=== PATIENT | male | born 1950 | race Two or more races ===

== ENCOUNTER → 2020-06-06 14:12 | Outpatient (BNVA) | payer MEDICARE, SELFPAY | PROVIDERS: Visit Provider Internal Medicine | DX: B20 Human immunodeficiency virus [HIV] disease (principal); I10 Essential (primary) hypertension; R76.8 Other specified abnormal immunological findings in serum; C85.80 Other specified types of non-Hodgkin lymphoma, unspecified site | CPT/HCPCS: 99213 ==

== ENCOUNTER → 2020-07-16 13:28 | Outpatient (BNVA) | payer MEDICARE, SELFPAY | PROVIDERS: Visit Provider Internal Medicine | DX: Z76.89 Persons encountering health services in other specified circumstances (principal) ==

== ENCOUNTER → 2020-08-06 15:29 | Outpatient (BNVA) | payer MEDICARE, SELFPAY | PROVIDERS: Visit Provider Internal Medicine | DX: Z13.89 Encounter for screening for other disorder (principal) | CPT/HCPCS: Q3014 ==

== ENCOUNTER 2020-08-09 12:06 | Emergency (ER) | payer MEDICARE, SELFPAY ==
[2020-08-09 12:15] VITALS: BP 160/70; PULSE 95; RESP 16; TEMP 36.9; O2SAT 95; BMI 24.3
--- NOTE | 2020-08-09 12:15 | ED_ITS ---
HPI - Nausea/Vomiting/Diarrhea General Chief complaint: Nausea/Vomiting/Diarrhea Stated complaint: nausea, abd pain Time Seen by Provider: 08/09/20 12:15 Source: patient History of Present Illness HPI Narrative: Patient complains of nausea some episodes of vomiting and dry heaves over last several days and a feeling of weakness for over a week, patient is on chemo for lymphoma and he says after every chemotherapy treatment he feels weaker and more nauseous, he has completed 3 treatments and the lymphoma treatment for a mass under his tongue has been successful in reducing the size of the mass He is able to tolerate small amounts of fluids without vomiting but cannot eat solid foods due to the nausea, at this time there is no chest pain or shortness of breath no fever no chills, no cough, no urinary problems MD elicited complaint: nausea and vomiting Related Data Home Medications Medication Instructions Recorded Confirmed carvedilol 25 mg tablet 25 mg PO BID 06/06/20 06/08/20 sacubitril 97 mg-valsartan 103 mg 1 tab PO BID 06/06/20 06/08/20 tablet allopurinol 300 mg tablet 0 mg PO 08/06/20 omeprazole 20 mg capsule,delayed 20 mg PO DAILY 08/06/20 release oxycodone 5 mg tablet 5 mg PO Q6H 08/06/20 prednisone 50 mg tablet 100 mg PO BEDTIME 08/06/20 prochlorperazine maleate 10 mg 10 mg PO Q6H PRN 08/06/20 tablet Previous Rx's Medication Instructions Recorded dolutegravir 50 mg tablet 50 mg PO DAILY 30 Days #30 tab 06/06/20 emtricitabine 200 mg-tenofovir 1 tab PO DAILY 30 Days #30 tab 06/06/20 alafenamide fumarate 25 mg tablet ondansetron HCl [Zofran] 4 mg PO Q6H PRN #20 tab 08/09/20 ondansetron HCl [Zofran] 4 mg PO Q6H PRN #20 tab 08/09/20 ondansetron HCl [Zofran] 4 mg PO Q6H PRN #20 tab 08/09/20 Allergies Allergy/AdvReac Type Severity Reaction Status Date / Time morphine [MORPHINE] Allergy Intermediate RASH Verified 08/06/20 14:37 ibuprofen [From MOTRIN] AdvReac Unknown UPSET Verified 08/06/20 14:37 STOMACH, diarrhea Seasonale Allergy Unknown itching Uncoded 12/03/19 00:00 Review of Systems Review of Systems: Patient complaints are nausea vomiting and generalized weakness Negatives are no fever no chills no dizziness no fainting no headache no neck pain no sore throat no runny nose no cough no shortness of breath no chest pain no diarrhea no dysuria no changes to bladder habits, no abdominal pain, no rash, no bleeding in stool or any other source, no difficulty ambulating, no confusion Yes all other systems are reviewed and are negative [facility] Past Medical History Attestation statement: The following information was validated with the patient. 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, he also has history of HIV infection and is under care of infectious disease doctor for this and has seen Dr young recently Medical History (Updated 08/09/20 @ 15:42 by BRENDON Wang) Hepatitis B antibody positive in blood Hepatitis B core antibody positive Hepatitis C antibody positive in blood HIV (human immunodeficiency virus infection) Hypertension T-cell lymphoma Surgical History History of spinal surgery Social History Social History Smoking Status: Current every day smoker Use of substances other than those prescribed or required for medical reasons: No Advance Directives: No Advance Directives Information Provided: No Physical Exam Vital Signs: Vital Signs: Last Vital Signs Temp 98.0 F 08/09/20 14:00 Pulse 89 08/09/20 14:00 Resp 16 08/09/20 14:00 BP 155/78 H 08/09/20 14:00 Pulse Ox 95 08/09/20 14:00 Body Mass Index 24.3 General appearance is comp cooperative no acute distress The head is normocephalic atraumatic the pupils are equal round reactive to light the pharynx is clear and mucous membranes are moist , there is no impairment of breathing or swallowing, no mass palpated the neck is supple, no stridor The chest is clear to auscultation bilaterally with symmetrical equal breath sounds The heart no murmur as contagion Abdomen is soft and nontender no rebound no guarding The skin no rashes no petechiae no purpura Rectal exam was refused but patient denies any blood or any black tarry or purple stool Extremities no edema, no calf tenderness or swelling Neuro patient is interacting appropriately, gait is normal balance is normal No focal numbness or weakness, cranial nerves 2-12 intact as tested, cerebellar exam was normal Course Course Course Narrative: Nurse's note had said patient is complaining of diarrhea and s hortness of breath as well as nausea vomiting and feeling generally weak In my conversation with him he denied shortness of breath and said yet had some diarrhea many days ago but has no diarrhea now He was given 1 L of IV fluids and Zofran and after this he was able to eat Jell- O and apple juice with no nausea His labs showed some anemia with a hematocrit of 28 and a hemoglobin of 9 His case was discussed with the oncologist covering for Dr. prabhakar who said they can follow the patient closely and patient was discharged MDM - Nausea/Vomiting/Diarrhea Lab Data Attestation: I reviewed the patient's lab results. Result diagrams: 08/09/20 13:53 08/09/20 13:53 Labs: Lab Results 08/09/20 08/09/20 08/09/20 Range/Units 13:53 13:53 13:53 WBC 4.6 L (4.8-10.8) X10*3/uL RBC 2.86 L (4.60-5.80) X10*6/uL Hgb 9.0 L (14.0-18.0) g/dl Hct 28.2 L (42-52) % MCV 98.6 H (80-98) fL MCH 31.5 (27.0-33.0) pg MCHC 31.9 (31.0-36.0) g/dl RDW 16.4 H (11.0-16.0) % Plt Count 365 (160-400) X10*3/uL MPV 9.7 (9.4-12.4) fL Immature Gran % (Auto) 4.1 H (0.0-0.4) % Neut % (Auto) 60.8 (45-73) % Lymph % (Auto) 9.1 L (20-40) % [place] % (Auto) 25.8 H (2-11) % Eos % (Auto) 0.2 (0-4) % Baso % (Auto) 0.0 (0-2) % Lymph # (Auto) 0.4 L (1.2-4.9) X10*3/uL [place] # (Auto) 1.2 (0.1-1.2) X10*3/uL Eos # (Auto) 0.0 (0.0-0.4) X10*3/uL Baso # (Auto) 0.0 (0.0-0.2) X10*3/uL Abs Immat Gran (auto) 0.19 H (0.00-0.03) X10*3/uL Absolute Neuts (auto) 2.8 (2.0-8.3) X10*3/uL Absolute Nucleated RBC 0.000 (0.0-0.012) X10*3/uL Nucleated RBC % (auto) 0.0 (0.0-0.2) /100WBC Smear Tech's Comments VERIFIED Sodium 140 (135-145) mmol/L Potassium 4.3 (3.3-5.1) mmol/l Chloride 105 (96-108) mmol/L Carbon Dioxide 26 (22-29) mmol/L Anion Gap 13 (12-20) BUN 14 (9-16) mg/dL Creatinine 1.11 (0.5-1.4) mg/dL Estim Creat Clear Calc 63.6 Estimated GFR > 60 POC Glucose (60-115) mg/dL Random Glucose 112 (60-115) mg/dL Calcium 8.2 L (8.4-10.2) mg/dL Magnesium 1.7 (1.6-2.6) mg/dL Total Bilirubin 0.9 (0.0-1.0) mg/dL Direct Bilirubin 0.5 (0.0-0.5) mg/dL AST 32 (5-37) U/L ALT 24 (0-40) U/L Alkaline Phosphatase 57 (39-117) U/L Total Protein 6.3 L (6.5-8.0) g/dL Albumin 4.0 (3.5-5.0) g/dL Lipase 10 (8-78) U/L Urine Color Urine Appearance Urine pH (5.0-8.0) Ur Specific [place] (1.005-1.025) Urine Protein (NEG-TRACE) MG/DL Urine Glucose (UA) (NEG) MG/DL Urine Ketones (NEG) MG/DL Urine Blood (NEG) Urine Nitrite (NEG) Ur Leukocyte Esterase (NEG) 08/09/20 08/09/20 Range/Units 13:53 14:55 WBC (4.8-10.8) X10*3/uL RBC (4.60-5.80) X10*6/uL Hgb (14.0-18.0) g/dl Hct (42-52) % MCV (80-98) fL MCH (27.0-33.0) pg MCHC (31.0-36.0) g/dl RDW (11.0-16.0) % Plt Count (160-400) X10*3/uL MPV (9.4-12.4) fL Immature Gran % (Auto) (0.0-0.4) % Neut % (Auto) (45-73) % Lymph % (Auto) (20-40) % [place] % (Auto) (2-11) % Eos % (Auto) (0-4) % Baso % (Auto) (0-2) % Lymph # (Auto) (1.2-4.9) X10*3/uL [place] # (Auto) (0.1-1.2) X10*3/uL Eos # (Auto) (0.0-0.4) X10*3/uL Baso # (Auto) (0.0-0.2) X10*3/uL Abs Immat Gran (auto) (0.00-0.03) X10*3/uL Absolute Neuts (auto) (2.0-8.3) X10*3/uL Absolute Nucleated RBC (0.0-0.012) X10*3/uL Nucleated RBC % (auto) (0.0-0.2) /100WBC Smear Tech's Comments Sodium (135-145) mmol/L Potassium (3.3-5.1) mmol/l Chloride (96-108) mmol/L Carbon Dioxide (22-29) mmol/L Anion Gap (12-20) BUN (9-16) mg/dL Creatinine (0.5-1.4) mg/dL Estim Creat Clear Calc Estimated GFR POC Glucose 99 (60-115) mg/dL Random Glucose (60-115) mg/dL Calcium (8.4-10.2) mg/dL Magnesium (1.6-2.6) mg/dL Total Bilirubin (0.0-1.0) mg/dL Direct Bilirubin (0.0-0.5) mg/dL AST (5-37) U/L ALT (0-40) U/L Alkaline Phosphatase (39-117) U/L Total Protein (6.5-8.0) g/dL Albumin (3.5-5.0) g/dL Lipase (8-78) U/L Urine Color DARK YELLOW Urine Appearance HAZY Urine pH 6.0 (5.0-8.0) Ur Specific [place] 1.025 (1.005-1.025) Urine Protein TRACE (NEG-TRACE) MG/DL Urine Glucose (UA) NEG (NEG) MG/DL Urine Ketones 15 (NEG) MG/DL Urine Blood NEG (NEG) Urine Nitrite NEG (NEG) Ur Leukocyte Esterase NEG (NEG) Imaging Data Chest x-ray: Radiologist's impression: [place] [id number] XRay Report Signed Patient: Julian DicksonMR#: [id number] : 2Acct:[id number] Age/Sex: 70 / MADM Date: 08/09/20 Loc: .ED Attending Dr: Ordering Physician: ALICIA RILEY Date of Service: 08/09/20 Procedure(s): XR chest 1V Accession Number(s): [id number] cc: ALICIA RILEY~ EXAMINATION: XR CHEST CLINICAL INFORMATION: Weakness COMPARISON: 12/06/2018 TECHNIQUE: Frontal view of the chest was obtained. FINDINGS: Since the prior study, a right chest port has been placed with its tip in the distal SVC. There is continued mild elevation of the left hemidiaphragm. The heart size is normal. The aorta is unfolded. No infiltrates, effusions or lung masses are seen. Left basilar atelectasis is present. XR/XR chest 1V IMPRESSION: No acute intrathoracic disease. Discharge Plan Discharge Clinical Impression: T-cell lymphoma, Weakness, Nausea Anemia Qualifiers: Anemia type: unspecified type Qualified Code(s): D64.9 - Anemia, unspecified Patient Disposition: Home, Self-Care Additional Instructions: Our work today showed you have developed anemia possibly is a side effect of he r chemotherapy Hemoglobin was 9 and hematocrit was 28, this can explain fatigue and weakness and should be monitored as if numbers get worse you may need treatment Follow closely with her oncologist and primary doctor We gave Zofran here which helped her nausea so we are going to write you a presc ription for that medicine at home Return to ER any time for worsening weakness, dehydration, fever, any worse condition or any concerns Prescriptions: New ondansetron HCl [Zofran] 4 mg tablet 4 mg PO Q6H PRN (Reason: nausea and vomiting) Qty: 20 RF: 0 ondansetron HCl [Zofran] 4 mg tablet 4 mg PO Q6H PRN (Reason: nausea and vomiting) Qty: 20 RF: 0 ondansetron HCl [Zofran] 4 mg tablet 4 mg PO Q6H PRN (Reason: nausea and vomiting) Qty: 20 RF: 0 No Action Descovy 200-25 mg tablet 1 tab PO DAILY 30 Days Qty: 30 RF: 1 Tivicay 50 mg tablet 50 mg PO DAILY 30 Days Qty: 30 RF: 1 carvedilol [Coreg] 25 mg tablet 25 mg PO BID RF: 0 Entresto 97-103 mg tablet 1 tab PO BID RF: 0 prednisone 50 mg tablet 100 mg PO BEDTIME RF: 0 prochlorperazine maleate 10 mg tablet 10 mg PO Q6H PRN (Reason: nausea/vomiting) RF: 0 omeprazole 20 mg capsule,delayed release(DR/EC) 20 mg PO DAILY RF: 0 oxycodone 5 mg tablet 5 mg PO Q6H RF: 0 allopurinol 300 mg tablet 0 mg PO RF: 0
--- NOTE | 2020-08-09 12:38 | ECG_ITS ---
Test Reason : WEAK Blood Pressure : / mmHG Vent. Rate : 088 BPM Atrial Rate : 088 BPM P-R Int : 150 ms QRS Dur : 092 ms QT Int : 366 ms P-R-T Axes : 047 019 212 degrees QTc Int : 442 ms Artifact in tracing Normal sinus rhythm Minimal voltage criteria for LVH, may be normal variant T wave abnormality, consider anterolateral ischemia Abnormal ECG When compared with ECG of 06-DEC-2018 23:22, No significant changes seen Referred By: Mariusz Manzanares Electronically Signed By:KRISTIN GAONA
--- NOTE | 2020-08-09 13:15 | XR_ITS ---
EXAMINATION: XR CHEST CLINICAL INFORMATION: Weakness COMPARISON: 12/06/2018 TECHNIQUE: Frontal view of the chest was obtained. FINDINGS: Since the prior study, a right chest port has been placed with its tip in the distal SVC. There is continued mild elevation of the left hemidiaphragm. The heart size is normal. The aorta is unfolded. No infiltrates, effusions or lung masses are seen. Left basilar atelectasis is present. XR/XR chest 1V IMPRESSION: No acute intrathoracic disease.
[2020-08-09 13:22] VITALS: BP 142/69; PULSE 95
[2020-08-09 13:23] VITALS: BP 118/67; BP 146/78; PULSE 88; PULSE 92; RESP 16; O2SAT 98
[2020-08-09 14:00] VITALS: BP 155/78; PULSE 89; RESP 16; TEMP 36.7; O2SAT 95
[2020-08-09 14:04] LABS: Appearance Urine HAZY; Color Urine DARK YELLOW; Eosinophils Percent Auto 0.2 % (0-4); Glucose Urine UA NEG (NEG); Hematocrit 28.2 % (42-52); Imm Gran Abs Auto 0.19 X10*3/uL (0.00-0.03); Imm Gran Pct Auto 4.1 % (0.0-0.4); Leukocyte Esterase Urine NEG (NEG); Lymphocytes Absolute Auto 0.4 X10*3/uL (1.2-4.9); Lymphocytes Percent Auto 9.1 % (20-40); MANUAL DIFF FLAG SCAN; Mean Corpuscular HGB Conc 31.9 g/dl (31.0-36.0); Mean Corpuscular Hemoglobin 31.5 pg (27.0-33.0); Mean Corpuscular Volume 98.6 fL (80-98); Mean Platelet Volume 9.7 fL (9.4-12.4); Monocytes Absolute Auto 1.2 X10*3/uL (0.1-1.2); Monocytes Percent Auto 25.8 % (2-11); Neutrophils Absolute Auto 2.8 X10*3/uL (2.0-8.3); Neutrophils Percent Auto 60.8 % (45-73); Nitrite Urine NEG (NEG); Platelet Count 365 X10*3/uL (160-400); Red Blood Count 2.86 X10*6/uL (4.60-5.80); Red Cell Distribution Width 16.4 % (11.0-16.0); SCAN SMEAR FLAG 1; Specific Gravity - Urine 1.025 (1.005-1.025); Urine Blood NEG (NEG); Urine Ketones 15 MG/DL (NEG); Urine Protein TRACE MG/DL (NEG-TRACE); White Blood Count 4.6 X10*3/uL (4.8-10.8)
[2020-08-09] MEDS: 0.9 % Sodium Chloride 1,000 ML 1000 ML IV (14:16)
[2020-08-09] MEDS: ondansetron HCL 4 MG/2 ML VIAL IVPUSH (14:16)
[2020-08-09 14:24] LABS: SLIDE REVIEW VERIFIED
[2020-08-09 14:33] LABS: Alanine Aminotransferase 24 U/L (0-40); Alkaline Phosphatase 57 U/L (39-117); Anion Gap 13 (12-20); Aspartate Amino Transferase 32 U/L (5-37); Bilirubin Direct 0.5 mg/dL (0.0-0.5); Bilirubin Total 0.9 mg/dL (0.0-1.0); Blood Urea Nitrogen 14 mg/dL (9-16); Calcium 8.2 mg/dL (8.4-10.2); Carbon Dioxide 26 mmol/L (22-29); Chloride 105 mmol/L (96-108); Creatinine Clr Calc Pharmacy 63.6; Estimated Glomerular Filt Rate > 60; Glucose Random 112 mg/dL (60-115); Lipase 10 U/L (8-78); Magnesium 1.7 mg/dL (1.6-2.6); Potassium 4.3 mmol/l (3.3-5.1); Sodium 140 mmol/L (135-145); Total Protein 6.3 g/dL (6.5-8.0)
[2020-08-09 14:59] LABS: Glucose, Whole Blood 99 mg/dL (60-115)
[2020-08-09 15:56] VITALS: BP 169/79; PULSE 92; RESP 18; TEMP 36.7; O2SAT 97
[2020-08-09] MEDS: Heparin Sodium,Porcine Flush 50 UNITS, 0.9 % Sodium Chloride Flush 5 ML IVFLUSH (16:12)
== END 2020-08-09 16:17 | disposition home or self-care (01) ==
PROVIDERS: Physician Assistant Medical; Emergency Provider Emergency Medicine; PCP Nurse Practitioner Family
DX: D64.9 Anemia, unspecified (principal); C85.90 Non-Hodgkin lymphoma, unspecified, unspecified site; Z92.21 Personal history of antineoplastic chemotherapy; R53.1 Weakness; R11.0 Nausea; I10 Essential (primary) hypertension; Z21 Asymptomatic human immunodeficiency virus [HIV] infection status
CPT/HCPCS: 36415; 71045; 80048; 80076; 81003; 82947; 83690; 83735; 85025; 93005; 96361; 96374; 99284; J1642; J2405

== ENCOUNTER 2020-08-12 06:40 | Emergency (ER) | payer MEDICARE, SELFPAY ==
[2020-08-12 07:09] VITALS: BP 115/69; PULSE 88; RESP 19; TEMP 36.6; O2SAT 88; BMI 23.6
--- NOTE | 2020-08-12 07:27 | ED.NAVMDI ---
HPI - Nausea/Vomiting/Diarrhea General Chief complaint: Nausea/Vomiting/Diarrhea Stated complaint: WEAKNESS/VOMITING Time Seen by Provider: 08/12/20 07:27 Source: patient Mode of arrival: EMS Limitations: no limitations History of Present Illness HPI Narrative: Patient has throat cancer and patient last had chemotherapy 3 weeks ago. He is weak and can't eat. He has abdominal pain MD elicited complaint: nausea Pertinent past history: anorexia Onset (ago): month(s) Location of pain: periumbilical Severity: moderate Associated symptoms: weakness Related Data Home Medications Medication Instructions Recorded Confirmed carvedilol 25 mg tablet 25 mg PO BID 06/06/20 06/08/20 sacubitril 97 mg-valsartan 103 mg 1 tab PO BID 06/06/20 06/08/20 tablet allopurinol 300 mg tablet 0 mg PO 08/06/20 omeprazole 20 mg capsule,delayed 20 mg PO DAILY 08/06/20 release oxycodone 5 mg tablet 5 mg PO Q6H 08/06/20 prednisone 50 mg tablet 100 mg PO BEDTIME 08/06/20 prochlorperazine maleate 10 mg 10 mg PO Q6H PRN 08/06/20 tablet Previous Rx's Medication Instructions Recorded dolutegravir 50 mg tablet 50 mg PO DAILY 30 Days #30 tab 06/06/20 emtricitabine 200 mg-tenofovir 1 tab PO DAILY 30 Days #30 tab 06/06/20 alafenamide fumarate 25 mg tablet ondansetron HCl [Zofran] 4 mg PO Q6H PRN #20 tab 08/09/20 ondansetron HCl [Zofran] 4 mg PO Q6H PRN #20 tab 08/09/20 ondansetron HCl [Zofran] 4 mg PO Q6H PRN #20 tab 08/09/20 Allergies Allergy/AdvReac Type Severity Reaction Status Date / Time morphine [MORPHINE] Allergy Intermediate RASH Verified 08/06/20 14:37 ibuprofen [From MOTRIN] AdvReac Unknown UPSET Verified 08/06/20 14:37 STOMACH, diarrhea Seasonale Allergy Unknown itching Uncoded 12/03/19 00:00 Review of Systems Constitutional: Constitutional: Reports no additional constitutional complaints Eyes: Eyes: Reports no additional eye complaints ENT: Denies dizziness Cardiovascular: Cardiovascular: Reports no additional cardiovascular complaints Respiratory: Respiratory: Reports as per HPI Gastrointestinal: Gastrointestinal: Reports no additional gastrointestinal complaints Musculoskeletal: Musculoskeletal: Reports no additional musculoskeletal complaints Integumentary/Breasts: Skin/Breast: Denies rash Neurologic: Reports system reviewed and no additional complaints, except as documented, Denies dizziness and Denies Sensory deficit (Neuro) Psychiatric: Psychiatric: Denies anxiety [facility] Past Medical History Medical History (Updated 08/18/20 @ 16:33 by Gabby Thomas MD) Hepatitis B antibody positive in blood Hepatitis B core antibody positive Hepatitis C antibody positive in blood HIV (human immunodeficiency virus infection) Hypertension T-cell lymphoma Surgical History History of spinal surgery Social History Social History Smoking Status: Current every day smoker Physical Exam Vital Signs: Vital Signs: Last Vital Signs Temp 98 F 08/12/20 07:09 Pulse 88 08/12/20 10:42 Resp 18 08/12/20 10:42 BP 144/56 H 08/12/20 10:42 Pulse Ox 91 L 08/12/20 10:42 Body Mass Index 23.6 Const: Other: male chronically ill appearing Nutritional Appearance: average body habitus Orientation/consciousness: oriented to person and patient oriented x3 Limitations: no limitations HENMT: Head: Yes normal to inspection Ears: external ears normal General nose exam: Normal external nose present Mouth: Normal oral and palatal mucosa present and oropharynx normal Throat: Yes posterior oropharynx normal Eyes: General: appearance normal, both eyes and all related structures Neck: Other: supple Neck: Yes normal visual inspection Chest: Chest palpation & inspection: normal inspection of the chest Resp: Auscultation: clear to auscultation bilaterally Cardio: Jugular venous distension: no JVD Rate: regular rate Rhythm: regular rhythm Heart sounds: S1 normal heart sound present and S2 normal heart sound present GI: Inspection: Yes normal to inspection Palpation (GI): Soft to palpation, nontender and No hepatosplenomegaly present Auscultation: normal bowel sounds : General: Yes no CVA tenderness Back/Spine/Pelvis: Back: no CVA tenderness Skin: General skin exam: no rashes or lesions noted Neuro: General: oriented to person and patient oriented x3 Cranial nerves: Yes CN's II-XII intact bilaterally Motor exam (neuro): 5/5 motor strength present throughout Sensory Exam: No Sensory deficit (Neuro) Extrem: General: Yes normal to inspection Psych: Appearance: grossly normal Course Course Course Narrative: patient with soft abdomen, no vomiting, relaxed after ativan. will dc home and have patient follow up with his oncologist Reevaluation(s) Reevaluation #1: I have reviewed the chart MDM - Nausea/Vomiting/Diarrhea Lab Data Result diagrams: 08/12/20 08:26 08/12/20 08:26 Labs: Lab Results 08/12/20 08/12/20 08/12/20 Range/Units 07:56 08:26 08:26 WBC 8.3 (4.8-10.8) X10*3/uL RBC 2.78 L (4.60-5.80) X10*6/uL Hgb 8.8 L (14.0-18.0) g/dl Hct 27.2 L (42-52) % MCV 97.8 (80-98) fL MCH 31.7 (27.0-33.0) pg MCHC 32.4 (31.0-36.0) g/dl RDW 15.8 (11.0-16.0) % Plt Count 397 (160-400) X10*3/uL MPV 9.6 (9.4-12.4) fL Immature Gran % (Auto) 1.4 H (0.0-0.4) % Neut % (Auto) 79.4 H (45-73) % Lymph % (Auto) 3.4 L (20-40) % [place] % (Auto) 15.7 H (2-11) % Eos % (Auto) 0.0 (0-4) % Baso % (Auto) 0.1 (0-2) % Lymph # (Auto) 0.3 L (1.2-4.9) X10*3/uL [place] # (Auto) 1.3 H (0.1-1.2) X10*3/uL Eos # (Auto) 0.0 (0.0-0.4) X10*3/uL Baso # (Auto) 0.0 (0.0-0.2) X10*3/uL Abs Immat Gran (auto) 0.12 H (0.00-0.03) X10*3/uL Absolute Neuts (auto) 6.6 (2.0-8.3) X10*3/uL Absolute Nucleated RBC 0.000 (0.0-0.012) X10*3/uL Nucleated RBC % (auto) 0.0 (0.0-0.2) /100WBC Smear Tech's Comments VERIFIED Sodium 138 (135-145) mmol/L Potassium 4.5 (3.3-5.1) mmol/l Chloride 103 (96-108) mmol/L Carbon Dioxide 28 (22-29) mmol/L Anion Gap 12 (12-20) BUN 12 (9-16) mg/dL Creatinine 1.41 H (0.5-1.4) mg/dL Estim Creat Clear Calc 50.1 Estimated GFR 50 Random Glucose 120 H (60-115) mg/dL Calcium 7.8 L (8.4-10.2) mg/dL Urine Color YELLOW Urine Appearance HAZY Urine pH 6.0 (5.0-8.0) Ur Specific [place] 1.025 (1.005-1.025) Urine Protein 1+ H (NEG-TRACE) MG/DL Urine Glucose (UA) NEG (NEG) MG/DL Urine Ketones 5 (NEG) MG/DL Urine Blood NEG (NEG) Urine Nitrite NEG (NEG) Ur Leukocyte Esterase NEG (NEG) Urine RBC 0-2 (0) /HPF Urine WBC 0-2 (0-4) /HPF Ur Squamous Epith Cells 1+ /LPF Urine Bacteria NONE /LPF Urine Mucus 3+ /LPF Imaging Data Chest x-ray: Radiologist's impression: no infiltrate Discharge Plan Discharge Clinical Impression: Abdominal pain Patient Disposition: Home, Self-Care Instructions: Abdominal Pain (ED) Prescriptions: No Action ondansetron HCl [Zofran] 4 mg tablet 4 mg PO Q6H PRN (Reason: nausea and vomiting) Qty: 20 RF: 0 ondansetron HCl [Zofran] 4 mg tablet 4 mg PO Q6H PRN (Reason: nausea and vomiting) Qty: 20 RF: 0 ondansetron HCl [Zofran] 4 mg tablet 4 mg PO Q6H PRN (Reason: nausea and vomiting) Qty: 20 RF: 0 Descovy 200-25 mg tablet 1 tab PO DAILY 30 Days Qty: 30 RF: 1 Tivicay 50 mg tablet 50 mg PO DAILY 30 Days Qty: 30 RF: 1 carvedilol [Coreg] 25 mg tablet 25 mg PO BID RF: 0 Entresto 97-103 mg tablet 1 tab PO BID RF: 0 prednisone 50 mg tablet 100 mg PO BEDTIME RF: 0 prochlorperazine maleate 10 mg tablet 10 mg PO Q6H PRN (Reason: nausea/vomiting) RF: 0 omeprazole 20 mg capsule,delayed release(DR/EC) 20 mg PO DAILY RF: 0 oxycodone 5 mg tablet 5 mg PO Q6H RF: 0 allopurinol 300 mg tablet 0 mg PO RF: 0 Referrals: Physician,Unknown [Primary Care Provider] - 2 days Interventions: ED Discharge Assessment Last Done: 08/12/20 10:43 Discharge Date/Time: 08/12/20 11:09
--- NOTE | 2020-08-12 07:35 | XR_ITS ---
EXAMINATION: XR CHEST CLINICAL INFORMATION: Shortness of breath COMPARISON: Chest radiographs 08/09/2020, 12/06/2018, 08/04/2017 TECHNIQUE: Portable upright AP view of the chest was obtained. FINDINGS: There is bibasilar subsegmental atelectasis. The lungs otherwise clear. No lobar or segmental airspace consolidation. No pneumothorax or pleural reaction or overt effusion. The heart is normal in size. The vascularity is normal. There is a right tunneled port again seen with tip at distal SVC. The hilar and mediastinal contours and bony structures are unremarkable. XR/XR chest 1V IMPRESSION: Bibasilar subsegmental atelectasis.
[2020-08-12 08:12] LABS: Glucose Urine UA NEG (NEG); Leukocyte Esterase Urine NEG (NEG); Nitrite Urine NEG (NEG); Specific Gravity - Urine 1.025 (1.005-1.025); Urine Blood NEG (NEG); Urine Ketones 5 MG/DL (NEG); Urine Protein 1+ MG/DL (NEG-TRACE)
[2020-08-12 08:15] LABS: Appearance Urine HAZY; Color Urine YELLOW
[2020-08-12 08:25] LABS: Mucus Urine 3+ /LPF; RBC Urine 0-2 /HPF (0); Squamous Epithelial Cell Urine 1+ /LPF; WBC Urine 0-2 /HPF (0-4)
[2020-08-12 08:34] LABS: Basophils Percent Auto 0.1 % (0-2); Hematocrit 27.2 % (42-52); Hemoglobin 8.8 g/dl (14.0-18.0); Imm Gran Abs Auto 0.12 X10*3/uL (0.00-0.03); Imm Gran Pct Auto 1.4 % (0.0-0.4); Lymphocytes Absolute Auto 0.3 X10*3/uL (1.2-4.9); Lymphocytes Percent Auto 3.4 % (20-40); MANUAL DIFF FLAG SCAN; Mean Corpuscular HGB Conc 32.4 g/dl (31.0-36.0); Mean Corpuscular Hemoglobin 31.7 pg (27.0-33.0); Mean Corpuscular Volume 97.8 fL (80-98); Mean Platelet Volume 9.6 fL (9.4-12.4); Monocytes Absolute Auto 1.3 X10*3/uL (0.1-1.2); Monocytes Percent Auto 15.7 % (2-11); Neutrophils Absolute Auto 6.6 X10*3/uL (2.0-8.3); Neutrophils Percent Auto 79.4 % (45-73); Platelet Count 397 X10*3/uL (160-400); Red Blood Count 2.78 X10*6/uL (4.60-5.80); Red Cell Distribution Width 15.8 % (11.0-16.0); SCAN SMEAR FLAG 1; White Blood Count 8.3 X10*3/uL (4.8-10.8)
[2020-08-12] MEDS: 0.9 % Sodium Chloride 1,000 ML 999 ML IVCONT (08:34)
[2020-08-12] MEDS: Pantoprazole Sodium 40 MG/10 ML VIAL IVPUSH (08:37)
[2020-08-12] MEDS: LORazepam 2 MG/ML VIAL 1 MG IVPUSH (08:38)
[2020-08-12] MEDS: ondansetron HCL 4 MG/2 ML VIAL IVPUSH (08:38)
[2020-08-12 08:40] VITALS: BP 109/57; PULSE 86; O2SAT 94
[2020-08-12 08:58] LABS: SLIDE REVIEW VERIFIED
[2020-08-12 09:03] VITALS: BP 99/63; PULSE 89; O2SAT 94
[2020-08-12 09:09] LABS: Anion Gap 12 (12-20); Blood Urea Nitrogen 12 mg/dL (9-16); Calcium 7.8 mg/dL (8.4-10.2); Carbon Dioxide 28 mmol/L (22-29); Chloride 103 mmol/L (96-108); Creatinine Clr Calc Pharmacy 50.1; Estimated Glomerular Filt Rate 50; Glucose Random 120 mg/dL (60-115); Potassium 4.5 mmol/l (3.3-5.1); Sodium 138 mmol/L (135-145)
[2020-08-12 10:42] VITALS: BP 144/56; PULSE 88; RESP 18; O2SAT 91
== END 2020-08-12 11:09 | disposition home or self-care (01) ==
PROVIDERS: Emergency Provider Emergency Medicine
DX: R10.33 Periumbilical pain (principal); C14.0 Malignant neoplasm of pharynx, unspecified; Z79.899 Other long term (current) drug therapy; F17.200 Nicotine dependence, unspecified, uncomplicated; Z71.6 Tobacco abuse counseling
CPT/HCPCS: 36415; 71045; 80048; 81001; 85025; 96361; 96374; 96375; 99283; 99284; J2060; J2405

== ENCOUNTER → 2020-09-10 09:33 | Outpatient (BNVA) | payer MEDICARE, SELFPAY | PROVIDERS: Visit Provider Internal Medicine | DX: I42.8 Other cardiomyopathies (principal); C85.90 Non-Hodgkin lymphoma, unspecified, unspecified site; B20 Human immunodeficiency virus [HIV] disease; I95.2 Hypotension due to drugs | CPT/HCPCS: 99212 ==

== ENCOUNTER → 2020-10-09 09:42 | Outpatient (REF) | payer MEDICARE, SELFPAY ==
--- NOTE | 2020-10-09 09:45 | CA_ITS ---
Transthoracic Echocardiogram Patient (Last, First, Middle): Julian Dickson, Gender: Male Date of : 1950 Age: 70 Procedure Date: 10/09/2020 Procedure Type: Transthoracic Echocardiogram Location: OP Height: 175.26 cm Weight: 67.59 kg BSA: 1.82 m2 Heart Rate: bpm BP: 80 / 60 mmHg Cabinet Maker: AYLEEN Walker MD: Dillon Dean MD Tax Assessor: Babar Sandoval MD Symptoms: I42.8 - Other cardiomyopathies Study Quality: Fair ECG Rhythm: Sinus Conclusions: - 1. Moderate LV systolic dysfunction with grade 1 diastolic dysfunction 2. Normal cardiac valvular Doppler 3. Normal RV systolic pressure 4. No pericardial effusion Findings Left Ventricle Normal left ventricular cavity size. There is normal left ventricular wall thickness. The left ventricular systolic function is moderately decreased. The visually estimated ejection fraction is between 35-40%. Spectral Doppler is indicative of an impaired relaxation filling pattern. E/E prime ratio is <8, consistent with normal filling pressures. Evidence suggests grade I (mild) diastolic dysfunction. Right Ventricle Normal right ventricular cavity size and systolic function. Atria Both atria are normal in size. There is no evidence of interatrial shunt. Aortic Valve The aortic valve was not well visualized. There is no aortic valve stenosis. There is no aortic valve regurgitation. Mitral Valve Normal mitral valve structure and function. There is trace mitral valve regurgitation. There is no mitral valve stenosis. Pulmonic Valve The pulmonic valve was not well visualized. Tricuspid Valve Likely normal tricuspid valve structure and function. There is trace tricuspid valve regurgitation. The right ventricular systolic pressure is normal. The right ventricular systolic pressure is 17 mmHg. Normal right atrial pressure. There is no evidence of pulmonary hypertension. Great Vessels All visible segments of the aorta are normal in size. The pulmonary artery was not well visualized. Venous The inferior vena cava is normal in size and collapses greater than 50% with inspiration. Pericardium/Pleural There is no evidence of pericardial effusion. Prior Study Comparison Changes noted compared to prior study dated: 03/30/2019. LV systolic function is improved Measurements M-Mode Liner Measurements Normals - Women/Men AOV Cusps: 2.20 1.5-2.6 cm/m2 2D Linear Measurements IVSd: 0.91 0.6-0.9/0.6-1.0 cm LVIDd: 3.92 3.9-5.3/4.2-5.9 cm LVIDd Index: 2.15 2.4-3.2/2.2-3.1 cm/m2 LVIDs: 3.25 2.0-3.6 cm LVPWd: 0.94 0.7-1.1 cm LA Diam: 2.90 2.7-3.8/3.0-4.0 cm LAIDs Index: 1.59 1.5-2.3 cm/m2 LV Mass: 137.97 67-162/88-224 g LV Mass Index: 75.81 43-95/49-115 g/m2 2D Systolic Function EF 4C: 39.30 >55% EF 2C: 42.70 >55% EF BiP: 41.70 >55% Mitral Valve MV Pk E: 0.59 MV Decel Time: 180.00 PHT: 53.00 MVA PHT: 4.15 Decel Giles: 3.35 Aortic Valve AoV Pk Reagan: 0.96 AoV Pk Grad: 4.00 LVOT LVOT Pk Reagan: 0.66 LVOT Mn Reagan: 0.46 LVOT VTI: 0.12 LVOT Pk Grad: 2.00 LVOT Mn Grad: 1.00 Diastolic Function MV Pk E: 0.59 Tricuspid Valve TR Pk Reagan: 1.87 TR Pk Grad: 14.00 RA Press: 3.00 RVSP: 17.00 Pulmonary Valve PV Pk Reagan: 0.65 Peak PV Grad: 2.00 Updated in Other Vendor System with Status of Final Babar Sandoval MD electronically signed on 10/10/2020 2:49:24 PM with status of Final
== END ==
LOC: HO.CARD 09:42
PROVIDERS: Visit Provider Internal Medicine
DX: I42.8 Other cardiomyopathies (principal)
CPT/HCPCS: 93306

== ENCOUNTER → 2020-12-17 10:04 | Outpatient (BNVA) | payer MEDICARE, SELFPAY | PROVIDERS: PCP Internal Medicine; Visit Provider Internal Medicine | DX: I42.8 Other cardiomyopathies (principal); C85.90 Non-Hodgkin lymphoma, unspecified, unspecified site; B20 Human immunodeficiency virus [HIV] disease; I95.2 Hypotension due to drugs | CPT/HCPCS: 99212 ==

== ENCOUNTER → 2021-02-02 10:17 | Outpatient (BNVA) | payer MEDICARE, SELFPAY | PROVIDERS: PCP Internal Medicine; Visit Provider Internal Medicine | DX: B20 Human immunodeficiency virus [HIV] disease (principal); C85.90 Non-Hodgkin lymphoma, unspecified, unspecified site; R76.8 Other specified abnormal immunological findings in serum | CPT/HCPCS: 99212 ==

== ENCOUNTER 2021-02-11 09:28 | Outpatient (REF) | payer MEDICARE, SELFPAY ==
[2021-02-11 11:03] LABS: Alanine Aminotransferase 17 U/L (0-40); Albumin Level 4.4 g/dL (3.5-5.0); Alkaline Phosphatase 65 U/L (39-117); Anion Gap 10 (12-20); Aspartate Amino Transferase 19 U/L (5-37); Bilirubin Total 2.3 mg/dL (0.0-1.0); Blood Urea Nitrogen 13 mg/dL (9-16); Calcium 9.2 mg/dL (8.4-10.2); Carbon Dioxide 26 mmol/L (22-29); Chloride 108 mmol/L (96-108); Cholesterol 198 mg/dL; Estimated Glomerular Filt Rate > 60; Glucose Fasting 102 mg/dL (60-99); HDL Cholesterol 63 mg/dL; LDL Cholesterol Calculated 117 mg/dl; Sodium 140 mmol/L (135-145); Triglycerides 92 mg/dL
[2021-02-12 13:27] LABS: Absolute CD3 Count 834 cells/uL (840-3060); Absolute CD4 Count 316 cells/uL (490-1740); Absolute CD8 Count 514 cells/uL (180-1170); Absolute Lymphocytes 1252 cells/uL (850-3900); CD4 CD8 Ratio 0.61 (0.86-5.00); Percent CD3 Cells 67 % (57-85); Percent CD4 Cells 25 % (30-61); Percent CD8 Cells 41 % (12-42)
[2021-02-13 12:06] LABS: HIV RNA PCR Qn Copies <20 NOT DETECTED copies/mL (NOT DETECTED); HIV RNA PCR Qn Log Copies <1.30 NOT DETECTED (NOT DETECTED)
[2021-02-17 11:41] LABS: Vitamin D 25-OH, D2 <4 ng/mL; Vitamin D 25-OH, D3 28 ng/mL; Vitamin D 25-OH, Total 28 ng/mL (30-100)
== END 2021-02-11 09:29 | disposition home or self-care (01) ==
LOC: HO.LAB 09:28
PROVIDERS: Absent Provider Internal Medicine; PCP Internal Medicine; Visit Provider Internal Medicine
DX: B20 Human immunodeficiency virus [HIV] disease (principal); I10 Essential (primary) hypertension; E78.5 Hyperlipidemia, unspecified; E55.9 Vitamin D deficiency, unspecified
CPT/HCPCS: 36415; 80053; 80061; 82306; 86359; 86360; 87536

== ENCOUNTER → 2021-06-23 09:32 | Outpatient (BNVA) | payer MEDICARE, SELFPAY | PROVIDERS: PCP Internal Medicine; Referring Provider Internal Medicine; Visit Provider Internal Medicine | DX: I42.8 Other cardiomyopathies (principal); C85.90 Non-Hodgkin lymphoma, unspecified, unspecified site; B20 Human immunodeficiency virus [HIV] disease; I95.2 Hypotension due to drugs | CPT/HCPCS: 99212 ==

== ENCOUNTER 2021-07-29 07:24 | Outpatient (REF) | payer MEDICARE, SELFPAY ==
[2021-07-29 07:28] LABS: MANUAL DIFF FLAG NO
[2021-07-29 07:59] LABS: Basophils Percent Auto 0.2 % (0-2); Eosinophils Absolute Auto 0.3 X10*3/uL (0.0-0.4); Eosinophils Percent Auto 6.5 % (0-4); Hemoglobin 14.2 g/dl (14.0-18.0); Lymphocytes Absolute Auto 1.3 X10*3/uL (1.2-4.9); Lymphocytes Percent Auto 29.1 % (20-40); Mean Corpuscular Hemoglobin 33.4 pg (27.0-33.0); Mean Corpuscular Volume 101.2 fL (80.0-98.0); Mean Platelet Volume 9.5 fL (9.4-12.4); Monocytes Absolute Auto 0.4 X10*3/uL (0.1-1.2); Monocytes Percent Auto 8.7 % (2-11); Neutrophils Absolute Auto 2.6 x10*3/uL (2.0-8.3); Neutrophils Percent Auto 55.5 % (45-73); Platelet Count 162 X10*3/uL (160-400); Red Blood Count 4.25 X10*6/uL (4.60-5.80); Red Cell Distribution Width 11.3 % (11.0-16.0); White Blood Count 4.6 X10*3/uL (4.8-10.8)
[2021-07-29 08:26] LABS: Alanine Aminotransferase 15 U/L (0-40); Albumin Level 4.3 g/dL (3.5-5.0); Alkaline Phosphatase 56 U/L (39-117); Anion Gap 11 (12-20); Aspartate Amino Transferase 16 U/L (5-37); Bilirubin Total 2.6 mg/dL (0.0-1.0); Blood Urea Nitrogen 15 mg/dL (9-16); Calcium 9.4 mg/dL (8.4-10.2); Carbon Dioxide 28 mmol/L (22-29); Chloride 108 mmol/L (96-108); Cholesterol 205 mg/dL; Estimated Glomerular Filt Rate > 60; Glucose Fasting 107 mg/dL (60-99); HDL Cholesterol 54 mg/dL; Iron 130 mcg/dL (45-160); LDL Cholesterol Calculated 133 mg/dl; Percent Iron Saturation 40 % (15-50); Potassium 3.9 mmol/L (3.3-5.1); Sodium 143 mmol/L (135-145); Total Iron Binding Capacity 321 mcg/dL (228-428); Triglycerides 93 mg/dL; Unsaturated Iron Binding 191 ug/dL
[2021-08-03 14:51] LABS: Vitamin D 25-OH, D2 <4 ng/mL; Vitamin D 25-OH, D3 21 ng/mL; Vitamin D 25-OH, Total 21 ng/mL (30-100)
== END 2021-07-29 07:25 | disposition home or self-care (01) ==
LOC: HO.LAB 07:24
PROVIDERS: PCP Internal Medicine; Visit Provider Internal Medicine
DX: D64.9 Anemia, unspecified (principal); I42.8 Other cardiomyopathies; E55.9 Vitamin D deficiency, unspecified; E78.5 Hyperlipidemia, unspecified
CPT/HCPCS: 36415; 80053; 80061; 82306; 83540; 85025

== ENCOUNTER → 2021-08-05 10:17 | Outpatient (BNVA) | payer MEDICARE, SELFPAY | PROVIDERS: Visit Provider Internal Medicine | DX: B20 Human immunodeficiency virus [HIV] disease (principal); C85.90 Non-Hodgkin lymphoma, unspecified, unspecified site; R76.8 Other specified abnormal immunological findings in serum | CPT/HCPCS: 99212 ==

== ENCOUNTER 2021-08-19 17:26 | Outpatient (REF) | payer MEDICARE, SELFPAY ==
[2021-08-19 17:55] LABS: Amphetamine Screen Urine Not Detected (Not Detect); Barbiturates, Urine Not Detected (Not Detect); Benzodiazepines Screen Urine Not Detected (Not Detect); Cannabinoid Screen Urine Not Detected (Not Detect); Cocaine Screen Urine Not Detected (Not Detect); Fentanyl, urine Not Detected (Not Detect); Opiate Screen Urine Not Detected (Not Detect); Phencyclidine Screen Urine Not Detected (Not Detect)
[2021-08-25 08:00] LABS: Codeine, Ur NEGATIVE; Hydrocodone, Ur NEGATIVE; Hydromorphone, Ur NEGATIVE; Morphine, Ur NEGATIVE; Norhydrocodone, Ur NEGATIVE; Oxycodone, Ur NEGATIVE; Oxymorphone, Ur NEGATIVE
[2021-08-25 08:01] LABS: Alphahydroxymidazolam,GCMS Ur NEGATIVE; Lorazepam GCMS Urine NEGATIVE; Nordiazepam, GCMS Urine NEGATIVE; Noroxycodone, Ur NEGATIVE; Oxazepam, GCMS Urine NEGATIVE; Temazepam, GCMS Urine NEGATIVE
[2021-08-25 08:02] LABS: Alphahydroxytriazolam, GCMS Ur NEGATIVE
[2021-08-25 08:06] LABS: Alprazolam, GCMS Urine NEGATIVE; Aminoclonazepam, GCMS Urine NEGATIVE
[2021-08-25 08:10] LABS: Flurazepam Metabolite,GCMS Ur NEGATIVE
== END 2021-08-19 17:27 | disposition home or self-care (01) ==
LOC: HO.LNP 17:26
PROVIDERS: Visit Provider Internal Medicine
DX: M96.1 Postlaminectomy syndrome, not elsewhere classified (principal)
CPT/HCPCS: 80307; 80346; 80364; 80365

== ENCOUNTER 2021-10-01 07:27 | Outpatient (REF) | payer MEDICARE, SELFPAY ==
--- NOTE | ~2021-10-01 | XR_ITS ---
EXAMINATION: XR LUMBOSACRAL SPINE CLINICAL INFORMATION: Postlaminectomy syndrome. COMPARISON: None. TECHNIQUE: 3 views of the lumbosacral spine. FINDINGS: There are 5 [id number] lumbar vertebra. Pedicle screws and rods are seen transfixing L4, L5, and S1. No hardware fracture is identified. There appears to be L4 laminectomy. There is loss of the L5-S1 disc space. No acute fracture is appreciated. The right sacroiliac joint is not well seen and there may be fusion present. XR/XR lumbar spine 2-3V IMPRESSION: Status post instrumentation L4-S1 with hardware intact. No acute fracture identified.
[2021-10-02 08:36] LABS: Syphilis Screen Nonreactive (Nonreactive)
[2021-10-02 15:32] LABS: Absolute CD3 Count 1012 cells/uL (840-3060); Absolute CD4 Count 425 cells/uL (490-1740); Absolute CD8 Count 580 cells/uL (180-1170); Absolute Lymphocytes 1647 cells/uL (850-3900); CD4 CD8 Ratio 0.73 (0.86-5.00); Percent CD3 Cells 61 % (57-85); Percent CD4 Cells 26 % (30-61); Percent CD8 Cells 35 % (12-42)
[2021-10-04 19:02] LABS: HIV RNA PCR Qn Copies <20 Copies/mL; HIV RNA PCR Qn Log Copies <1.30 Log cps/mL
== END 2021-10-01 07:28 | disposition home or self-care (01) ==
LOC: HO.LAB 07:27
PROVIDERS: Absent Provider Internal Medicine; PCP Internal Medicine; Visit Provider Internal Medicine
DX: B20 Human immunodeficiency virus [HIV] disease (principal); M96.1 Postlaminectomy syndrome, not elsewhere classified
CPT/HCPCS: 36415; 72100; 86359; 86360; 86780; 87536

== ENCOUNTER → 2021-11-03 10:12 | Outpatient (BNVA) | payer MEDICARE, SELFPAY | PROVIDERS: Visit Provider Internal Medicine | DX: B20 Human immunodeficiency virus [HIV] disease (principal) | CPT/HCPCS: 99212 ==

== ENCOUNTER → 2021-12-08 10:19 | Outpatient (REF) | payer OTHER, SELFPAY ==
--- NOTE | 2021-12-08 10:22 | CA_ITS ---
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 The visually estimated ejection fraction is between 15-20%. - No obvious valvular pathology seen on this study. Findings Left Ventricle Normal left ventricular cavity size. There is moderately increased left ventricular wall thickness. The left ventricular systolic function is severely decreased. The visually estimated ejection fraction is between 15 20%. There is severe global hypokinesis. Evidence suggests grade I (mild) diastolic dysfunction. Right Ventricle Normal right ventricular cavity size. There is normal right ventricular systolic function. Atria Both atria are normal in size. Aortic Valve The aortic valve structure and function is likely normal. There is no aortic valve stenosis. There is no aortic valve regurgitation. Mitral Valve There is mild anterior mitral leaflet thickening. There is trace mitral valve regurgitation. There is no mitral valve stenosis. Pulmonic Valve The pulmonic valve was not well visualized. Tricuspid Valve There is trace tricuspid valve regurgitation. The pulmonary artery systolic pressure is normal. Great Vessels The asc aorta is normal in size. Venous The inferior vena cava is normal in size and collapses greater than 50% with inspiration. There is evidence of a dilated coronary sinus. Pericardium/Pleural There is no evidence of pericardial effusion. Prior Study Comparison Changes noted compared to prior study dated: 10/09/2020. LVEF lower than prior study. Recommendations, Care & Conclusions No obvious valvular pathology seen on this study. Measurements 2D Linear Measurements IVSd: 1.58 0.6-0.9/0.6-1.0 cm LVIDd: 5.41 3.9-5.3/4.2-5.9 cm LVIDd Index: 2.85 2.4-3.2/2.2-3.1 cm/m2 LVIDs: 4.70 2.0-3.6 cm LVPWd: 1.40 0.7-1.1 cm LA Diam: 3.50 2.7-3.8/3.0-4.0 cm LAIDs Index: 1.84 1.5-2.3 cm/m2 LV Mass: 449.54 67-162/88-224 g LV Mass Index: 236.60 43-95/49-115 g/m2 LVOT Diam: 2.20 3.0+(-)1.3 cm 2D Systolic Function EF 4C: 34.20 >55% EF 2C: 42.30 >55% EF BiP: 39.00 >55% Mitral Valve MV Pk E: 0.49 MV PK A: 1.05 MV Decel Time: 171.00 E/A: 0.50 E'Lateral: 3.05 E'Medial: 2.83 E/E' Med: 17.20 E/E' Lat: 16.00 PHT: 50.00 MVA PHT: 4.40 Decel [place]: 2.86 Aortic Valve AoV Pk Reagan: 0.95 AoV Mn Reagan: 0.77 AoV VTI: 0.19 AoV Pk Grad: 4.00 Aov Mn Grad: 3.00 SAWYER Cont.VTI: 2.87 LVOT LVOT Pk Reagan: 0.79 LVOT Mn Reagan: 0.51 LVOT VTI: 0.14 LVOT Pk Grad: 2.00 LVOT Mn Grad: 1.00 LVOT Diam: 2.20 LVOT Area: 3.80 Diastolic Function MV Pk E: 0.49 MV Pk A: 1.05 E/A: 0.50 E'Medial: 2.83 E/E' Med: 17.20 E' Laterial: 3.05 E/E' Lat: 16.00 Right Ventricle TAPSE (mm): 21.30 TVS' Reagan: 10.10 Tricuspid Valve TR Pk Reagan: 1.91 TR Pk Grad: 15.00 RA Press: 3.00 RVSP: 18.00 Great Vessels Aorta Sinus of Valsalva: 4.07 2.0-3.[address] [place]: 3.37 1.7-3.4 cm Ao Asc: 3.30 2.1-3.4 cm Updated in Other Vendor System with Status of Final Dillon Dean MD electronically signed on 12/08/2021 12:39:34 PM with status of Final
== END ==
LOC: HO.CARD 10:19
PROVIDERS: PCP Internal Medicine; Visit Provider Internal Medicine
DX: I42.8 Other cardiomyopathies (principal)
CPT/HCPCS: 93306

== ENCOUNTER → 2021-12-15 10:20 | Outpatient (BNVA) | payer OTHER, SELFPAY | PROVIDERS: PCP Internal Medicine; Referring Provider Internal Medicine; Visit Provider Internal Medicine | DX: I42.8 Other cardiomyopathies (principal); I10 Essential (primary) hypertension; Z79.899 Other long term (current) drug therapy; Z71.89 Other specified counseling | CPT/HCPCS: 93005; 99212 ==

== ENCOUNTER 2022-04-16 08:07 | Outpatient (REF) | payer OTHER, SELFPAY ==
--- NOTE | ~2022-04-16 | XR_ITS ---
EXAMINATION: XR SHOULDER, LEFT CLINICAL INFORMATION: Pain in the left shoulder. COMPARISON: 09/10/2017. TECHNIQUE: Four views of the left shoulder. FINDINGS: The bones and soft tissues are normal. No fracture. Glenohumeral and acromioclavicular alignment is anatomic with normal joint space. No abnormal soft tissue calcifications. XR/XR shoulder LT min 2V IMPRESSION: Normal left shoulder.
[2022-04-16 09:37] LABS: Hematocrit 41.7 % (42.0-52.0); Hemoglobin 13.7 g/dl (14.0-18.0); Mean Corpuscular HGB Conc 32.9 g/dl (31.0-36.0); Mean Corpuscular Hemoglobin 33.7 pg (27.0-33.0); Mean Corpuscular Volume 102.5 fL (80.0-98.0); Mean Platelet Volume 9.7 fL (9.4-12.4); Platelet Count 163 X10*3/uL (160-400); Red Blood Count 4.07 X10*6/uL (4.60-5.80); Red Cell Distribution Width 11.5 % (11.0-16.0)
[2022-04-16 09:57] LABS: Alanine Aminotransferase 10 U/L (0-40); Albumin Level 4.3 g/dL (3.5-5.0); Alkaline Phosphatase 72 U/L (39-117); Anion Gap 12 (12-20); Aspartate Amino Transferase 16 U/L (5-37); Bilirubin Direct 0.6 mg/dL (0.0-0.5); Bilirubin Total 1.7 mg/dL (0.0-1.0); Blood Urea Nitrogen 16 mg/dL (9-16); Carbon Dioxide 25 mmol/L (22-29); Chloride 107 mmol/L (96-108); Cholesterol 201 mg/dL; Estimated Glomerular Filt Rate > 60; Glucose Random 87 mg/dL (60-115); HDL Cholesterol 68 mg/dL; LDL Cholesterol Calculated 120 mg/dl; Potassium 4.3 mmol/L (3.3-5.1); Sodium 140 mmol/L (135-145); Total Protein 6.9 g/dL (6.5-8.0); Triglycerides 67 mg/dL
[2022-04-16 10:06] LABS: ~HepC Num1 9.61 S/CO (0.00-0.79); ~Hepatitis C Antibody Reactive (Nonreactive)
[2022-04-16 10:34] LABS: Syphilis Screen Nonreactive (Nonreactive)
[2022-04-18 14:26] LABS: HIV RNA PCR Qn Copies NOT DETECTED copies/mL (NOT DETECTED); HIV RNA PCR Qn Log Copies NOT DETECTED (NOT DETECTED)
[2022-04-19 15:02] LABS: Absolute CD3 Count 706 cells/uL (840-3060); Absolute CD4 Count 280 cells/uL (490-1740); Absolute CD8 Count 425 cells/uL (180-1170); Absolute Lymphocytes 1247 cells/uL (850-3900); CD4 CD8 Ratio 0.66 (0.86-5.00); Percent CD3 Cells 57 % (57-85); Percent CD4 Cells 22 % (30-61); Percent CD8 Cells 34 % (12-42)
[2022-04-22 11:55] LABS: Vitamin D 25-OH, D2 <4 ng/mL; Vitamin D 25-OH, D3 22 ng/mL; Vitamin D 25-OH, Total 22 ng/mL (30-100)
== END 2022-04-16 08:08 | disposition home or self-care (01) ==
LOC: HO.XRAY 08:07
PROVIDERS: Absent Provider Internal Medicine; PCP Internal Medicine; Visit Provider Internal Medicine
DX: B20 Human immunodeficiency virus [HIV] disease (principal); E55.9 Vitamin D deficiency, unspecified; E78.5 Hyperlipidemia, unspecified; M25.512 Pain in left shoulder
CPT/HCPCS: 36415; 73030; 80048; 80061; 80076; 82306; 85027; 86359; 86360; 86780; 86803; 87536

== ENCOUNTER → 2022-04-30 10:05 | Outpatient (BNVA) | payer OTHER, SELFPAY | PROVIDERS: Visit Provider Internal Medicine | DX: B20 Human immunodeficiency virus [HIV] disease (principal) | CPT/HCPCS: 99212 ==

== ENCOUNTER → 2022-06-15 09:43 | Outpatient (BNVA) | payer OTHER, SELFPAY | PROVIDERS: PCP Internal Medicine; Referring Provider Internal Medicine; Visit Provider Internal Medicine | DX: I42.8 Other cardiomyopathies (principal); C85.90 Non-Hodgkin lymphoma, unspecified, unspecified site; I10 Essential (primary) hypertension; Z92.21 Personal history of antineoplastic chemotherapy; B20 Human immunodeficiency virus [HIV] disease; F17.210 Nicotine dependence, cigarettes, uncomplicated | CPT/HCPCS: 99212 ==

== ENCOUNTER 2022-11-02 10:16 | Outpatient (REF) | payer OTHER, SELFPAY ==
[2022-11-02 10:33] LABS: MANUAL DIFF FLAG NO
[2022-11-02 10:52] LABS: Basophils Percent Auto 0.5 % (0-2); Eosinophils Absolute Auto 0.2 X10*3/uL (0.0-0.4); Hemoglobin 14.1 g/dl (14.0-18.0); Lymphocytes Absolute Auto 1.3 X10*3/uL (1.2-4.9); Lymphocytes Percent Auto 31.5 % (20-40); Mean Corpuscular HGB Conc 33.6 g/dl (31.0-36.0); Mean Corpuscular Hemoglobin 33.8 pg (27.0-33.0); Mean Corpuscular Volume 100.7 fL (80.0-98.0); Mean Platelet Volume 9.4 fL (9.4-12.4); Monocytes Absolute Auto 0.4 X10*3/uL (0.1-1.2); Monocytes Percent Auto 9.2 % (2-11); Neutrophils Absolute Auto 2.3 x10*3/uL (2.0-8.3); Neutrophils Percent Auto 54.8 % (45-73); Platelet Count 155 X10*3/uL (160-400); Red Blood Count 4.17 X10*6/uL (4.60-5.80); Red Cell Distribution Width 11.5 % (11.0-16.0); White Blood Count 4.3 X10*3/uL (4.8-10.8)
[2022-11-02 11:41] LABS: Alanine Aminotransferase 15 U/L (0-40); Albumin Level 4.2 g/dL (3.5-5.0); Alkaline Phosphatase 67 U/L (39-117); Anion Gap 13 (12-20); Aspartate Amino Transferase 17 U/L (5-37); Bilirubin Direct 0.4 mg/dL (0.0-0.5); Blood Urea Nitrogen 15 mg/dL (9-16); Calcium 8.8 mg/dL (8.4-10.2); Carbon Dioxide 27 mmol/L (22-29); Chloride 108 mmol/L (96-108); Estimated Glomerular Filt Rate 57; Glucose Random 85 mg/dL (60-115); Potassium 4.3 mmol/L (3.3-5.1); Sodium 144 mmol/L (135-145); Total Protein 6.6 g/dL (6.5-8.0)
[2022-11-03 06:08] LABS: HBsAGNum1 0.35 S/CO (0.00-0.99); Hepatitis B Surface Antigen Negative (Negative)
[2022-11-03 16:19] LABS: Absolute CD3 Count 665 cells/uL (840-3060); Absolute CD4 Count 261 cells/uL (490-1740); Absolute CD8 Count 404 cells/uL (180-1170); Absolute Lymphocytes 1252 cells/uL (850-3900); CD4 CD8 Ratio 0.65 (0.86-5.00); Percent CD3 Cells 53 % (57-85); Percent CD4 Cells 21 % (30-61); Percent CD8 Cells 32 % (12-42)
[2022-11-05 14:08] LABS: HIV RNA PCR Qn Copies NOT DETECTED copies/mL (NOT DETECTED); HIV RNA PCR Qn Log Copies NOT DETECTED (NOT DETECTED)
[2022-11-05 15:33] LABS: HCV Log PCR <1.18 NOT DETECTED Log IU/mL (NOT DETECTED); HepC Viral Load <15 NOT DETECTED IU/mL (NOT DETECTED)
== END 2022-11-02 10:17 | disposition home or self-care (01) ==
LOC: HO.LAB 10:16
PROVIDERS: PCP Internal Medicine; Visit Provider Internal Medicine
DX: B20 Human immunodeficiency virus [HIV] disease (principal)
CPT/HCPCS: 36415; 80048; 80076; 85025; 86359; 86360; 87340; 87522; 87536

== ENCOUNTER → 2022-11-15 10:32 | Outpatient (BNVA) | payer OTHER, SELFPAY | PROVIDERS: PCP Internal Medicine; Visit Provider Internal Medicine | DX: B20 Human immunodeficiency virus [HIV] disease (principal); J41.0 Simple chronic bronchitis; R19.00 Intra-abdominal and pelvic swelling, mass and lump, unspecified site | CPT/HCPCS: 99212 ==

== ENCOUNTER → 2022-12-01 09:53 | Outpatient (REF) | payer OTHER, SELFPAY ==
--- NOTE | 2022-12-01 09:56 | CA_ITS ---
Transthoracic Echocardiogram Patient (Last, First, Middle): Julian Dickson, Gender: Male Date of : 1950 Age: 72 Procedure Date: 12/01/2022 Procedure Type: Transthoracic Echocardiogram Location: OP Height: 175.26 cm Weight: 83.01 kg BSA: 1.99 m2 Heart Rate: 71 bpm BP: 118 / 58 mmHg Day Care Home Provider: Referring MD: Dillon Dean MD Symptoms: I42.8 - Other cardiomyopathies Study Quality: Fair ECG Rhythm: Sinus Conclusions: - 1. Severely reduced LV systolic function with moderate LVH with grade 1 diastolic dysfunction 2. Normal cardiac valvular Doppler 3. No gross pericardial effusion Findings Left Ventricle Normal left ventricular cavity size. There is moderately increased left ventricular wall thickness. The left ventricular systolic function is severely decreased. The visually estimated ejection fraction is between 15 20%. Spectral Doppler is indicative of an impaired relaxation filling pattern. E/E prime ratio is <8, consistent with normal filling pressures. Evidence suggests grade I (mild) diastolic dysfunction. Peak GLS is -7.9%, markedly diminished. Right Ventricle Normal right ventricular cavity size and systolic function. Atria The left atrium is normal in size. Interatrial shunt cannot be excluded. The right atrium is normal in size. Aortic Valve Normal aortic valve structure and function. There is no aortic valve stenosis. There is no aortic valve regurgitation. Mitral Valve Normal mitral valve structure and function. There is trace mitral valve regurgitation. There is no mitral valve stenosis. Pulmonic Valve The pulmonic valve is likely normal. Tricuspid Valve Normal tricuspid valve structure. Tricuspid regurgitation envelope is inadequate for calculation of right ventricular systolic pressure. Normal right atrial pressure. Great Vessels All visible segments of the aorta are normal in size. The pulmonary artery was not well visualized. Venous The inferior vena cava is normal in size and collapses greater than 50% with inspiration. Pericardium/Pleural There is no evidence of pericardial effusion. Prior Study Comparison No significant change compared to prior study dated: 12/08/2021. Measurements 2D Linear Measurements IVSd: 1.52 0.6-0.9/0.6-1.0 cm LVIDd: 4.84 3.9-5.3/4.2-5.9 cm LVIDd Index: 2.43 2.4-3.2/2.2-3.1 cm/m2 LVIDs: 3.80 2.0-3.6 cm LVPWd: 1.55 0.7-1.1 cm LA Diam: 3.50 2.7-3.8/3.0-4.0 cm LAIDs Index: 1.76 1.5-2.3 cm/m2 LV Mass: 396.80 67-162/88-224 g LV Mass Index: 199.39 43-95/49-115 g/m2 LVOT Diam: 2.20 3.0+(-)1.3 cm 2D Systolic Function EF 4C: 12.20 >55% EF 2C: 20.40 >55% EF BiP: 17.50 >55% Mitral Valve MV Pk E: 0.42 MV PK A: 0.86 MV Decel Time: 167.00 E/A: 0.50 E'Lateral: 7.40 E'Medial: 2.39 E/E' Med: 17.70 E/E' Lat: 5.70 PHT: 49.00 MVA PHT: 4.49 Decel Stewart: 2.54 Aortic Valve AoV Pk Reagan: 0.95 AoV Mn Reagan: 0.59 AoV VTI: 0.23 AoV Pk Grad: 4.00 Aov Mn Grad: 2.00 SAWYER Cont.VTI: 2.02 LVOT LVOT Pk Reagan: 0.59 LVOT Mn Reagan: 0.40 LVOT VTI: 0.12 LVOT Pk Grad: 1.00 LVOT Mn Grad: 1.00 LVOT Diam: 2.20 LVOT Area: 3.80 Diastolic Function MV Pk E: 0.42 MV Pk A: 0.86 E/A: 0.50 E'Medial: 2.39 E/E' Med: 17.70 E' Laterial: 7.40 E/E' Lat: 5.70 Right Ventricle TAPSE (mm): 22.30 TVS' Reagan: 14.50 Tricuspid Valve TR Pk Reagan: 2.39 TR Pk Grad: 23.00 Great Vessels Aorta Sinus of Valsalva: 3.90 2.0-3.5 cm Ao Asc: 3.70 2.1-3.4 cm Pulmonary Valve PV Pk Reagan: 0.59 Peak PV Grad: 1.00 Updated in Other Vendor System with Status of Final Babar Sandoval MD electronically signed on 12/01/2022 12:23:11 PM with status of Final
== END ==
LOC: HO.CARD 09:53
PROVIDERS: PCP Internal Medicine; Visit Provider Internal Medicine
DX: I42.8 Other cardiomyopathies (principal)
CPT/HCPCS: 93306; 93356

== ENCOUNTER 2022-12-02 08:08 | Outpatient (REF) | payer OTHER, SELFPAY ==
--- NOTE | ~2022-12-02 | US_ITS ---
EXAMINATION: US ABDOMEN COMPLETE CLINICAL INFORMATION: Human immunodeficiency virus (HIV) disease. COMPARISON: Ultrasound abdomen 06/12/2019. Renal ultrasound 07/21/2010. TECHNIQUE: Real-time imaging of the abdominal viscera. FINDINGS: PANCREAS: Normal. ABDOMINAL AORTA: The proximal, mid, and distal segments are normal in caliber. INFERIOR VENA CAVA: Visualized portions are normal. LIVER: Normal. The liver is normal in size. The liver contour is normal. Parenchymal echogenicity is normal. No focal hepatic lesion. There is no intrahepatic biliary duct dilatation seen. GALLBLADDER: The gallbladder is physiologically distended without evidence of stones, sludge, polyps, or pericholecystic fluid. Gallbladder wall thickness is 0.4 cm. COMMON BILE DUCT: Normal in caliber measuring 0.7 cm in diameter. RIGHT KIDNEY: Normal. No hydronephrosis. No renal calculi or focal parenchymal lesions. The kidney measures 10.9 cm in maximum dimension. LEFT KIDNEY: No hydronephrosis or renal calculi. The kidney measures 9.8 cm in maximum dimension. There is anechoic cyst in midpole measuring 0.6 x 0.5 x 0.7 cm. SPLEEN: Normal. The spleen measures 7.5 cm in maximum dimension. FREE FLUID: None. US/US abdomen complete IMPRESSION: Small anechoic cyst midpole left kidney. The rest of the abdominal ultrasound is unremarkable.
== END 2022-12-02 08:09 | disposition home or self-care (01) ==
LOC: HO.US 08:08
PROVIDERS: PCP Internal Medicine; Visit Provider Internal Medicine
DX: B20 Human immunodeficiency virus [HIV] disease (principal)
CPT/HCPCS: 76700

== ENCOUNTER → 2022-12-21 09:57 | Outpatient (BNVA) | payer OTHER, SELFPAY | PROVIDERS: PCP Internal Medicine; Referring Provider Internal Medicine; Visit Provider Internal Medicine | DX: I42.8 Other cardiomyopathies (principal); I10 Essential (primary) hypertension | CPT/HCPCS: 93005; 99212 ==

== ENCOUNTER 2022-12-31 12:27 | Outpatient (REF) | payer OTHER, SELFPAY ==
--- NOTE | ~2022-12-31 | CT_ITS ---
EXAMINATION: CT CHEST WITHOUT CONTRAST CLINICAL INFORMATION: Simple chronic bronchitis COMPARISON: Previous chest x-ray most recent July 2020 TECHNIQUE: Multidetector volumetric CT imaging of the chest was done. Axial MIP volume rendering provided. Sagittal and coronal reformatted images were obtained. This CT examination was performed using dose optimization techniques as appropriate, variously including the following: *Automated exposure control *Adjustment of mA and/or kV according to patient size (this includes techniques or standardized protocols for targeted exams where dose is matched to indication/reason for exam; i.e. extremities or head) *Use of iterative reconstruction technique DLP: 153 mGy-cm FINDINGS: BEREAVEMENT PROGRAM COORDINATOR: Slight elevation of the left hemidiaphragm similar to previous chest x-rays. LUNGS: Mild paraseptal emphysema. 1 and 2 mm peripheral left upper lobe nodules axial image 83 series 5. Subsegmental atelectasis in the left lower lobe adjacent to the elevated left hemidiaphragm. No evidence of pneumonia. No bronchiectasis. No bronchial wall thickening. No endobronchial or endotracheal lesion. MEDIASTINUM: Small partially calcified mediastinal lymph node and right hilar lymph nodes. No enlarged lymph nodes. Normal heart size. No pericardial effusion. Normal caliber thoracic aorta. CORONARY ARTERY CALCIFICATION: Mild PLEURA: There is no pleural effusion. No pleural mass or thickening. AXILLA: No lymphadenopathy. UPPER ABDOMEN: Unremarkable. OSSEOUS STRUCTURES: Unremarkable. CT/CT chest wo IV con IMPRESSION: No evidence of bronchial wall thickening bronchiectasis or pneumonia. Small left upper lobe nodules or micronodules. According to the UPDATED 2017 Fleischner Society recommendations, the advised follow-up imaging for less than 6 mm solid nodule: Low risk, no chest CT follow-up and high risk, optional chest CT follow-up in one year. Fleischner guidelines were followed.
== END 2022-12-31 12:28 | disposition home or self-care (01) ==
LOC: HO.CT 12:27
PROVIDERS: PCP Internal Medicine; Visit Provider Internal Medicine
DX: J41.0 Simple chronic bronchitis (principal); C85.90 Non-Hodgkin lymphoma, unspecified, unspecified site
CPT/HCPCS: 71250

== ENCOUNTER 2023-04-05 14:44 | Outpatient (AMB) | payer OTHER, SELFPAY ==
[2023-04-05 14:45] VITALS: BP 142/80; PULSE 94; O2SAT 96; BMI 27.1
--- NOTE | 2023-04-05 14:45 | MHC.PC.OV ---
Vital Signs 04/05/23 14:45 04/05/23 16:29 Height 5 ft 9 in 5 ft 9 in Weight 183 lb 8 oz 183 lb BMI 27.1 27.0 BP 142/80 H 140/80 H Blood Pressure Location Lt brachial Lt brachial Position Sitting Sitting Pulse 94 Pulse Source Pulse Oximeter Pulse Oximetry (%) 96 Oxygen Delivery Method Room Air Intake Visit Reasons: bp Intake Note: Pt is here for Blood Pressure Check. Left hand thumb fungus with pain pt is requesting medication. Growth Media Mixer Mushroom Required: No Accompanied by: Self / Same As Patient Allergies morphine [MORPHINE] Allergy (Intermediate, Verified 04/05/23 15:11) RASH ibuprofen [From MOTRIN] Adverse Reaction (Intermediate, Verified 04/05/23 15:11) UPSET STOMACH, diarrhea Medication List - Last Reconciled 04/05/23 by Serena Saha MD albuterol sulfate 90 mcg/actuation (Ventolin HFA) 2 puffs inhalation Q6H PRN 30 days atorvastatin 20 mg PO BEDTIME 90 days carvedilol (Coreg) 25 mg PO BID cholecalciferol (vitamin D3) 50 mcg PO DAILY 90 days dolutegravir (Tivicay) 50 mg PO DAILY 30 days emtricitabine-tenofovir alafen 200-25 mg (Descovy) 1 tab PO DAILY 30 days hydroxyzine HCl 10 mg PO BID PRN oxycodone 5 mg PO DAILY PRN 30 days sacubitril-valsartan 97-103 mg (Entresto) 1 tab PO BID 90 days triamcinolone acetonide 0.1% 1 appl topical BID 30 days Tobacco use date assessed: 02/04/23 Fall risk assessment: No Falls in past year Last assessed Fall Risk: 04/05/23 Dental Screening Dental Screen Date: 04/05/23 Did you have a dental visit in the last 12 months?: No Did you have a dental problem in the last 6 months where you did not have access to dental care?: No Was dental information given to patient?: Patient has dentist HPI HPI Comments History of Present Illness Details This is a 72-year-old male with hypertension, HIV, cardiomyopathy and history of T-cell lymphoma that comes today for follow-up on his conditions. Blood pressure elevated today and will be recheck in 3 weeks by nurse navigator. He forgot to take his medications today. HIV stable with medications and is follow by ID. Last echocardiogram was November 2022 showing ejection fraction of 15-20%. He denies any chest pain, shortness of breath or leg edema. Has not gain 5 lb in a week. Follow by cardiology for his cardiomyopathy. He completed treatment for T-cell lymphoma and is follow by Hematology-Oncology every 6 months. [facility] Medical History Abdominal swelling Essential hypertension Failed back syndrome Hepatitis B antibody positive in blood Hepatitis B core antibody positive Hepatitis C antibody positive in blood HIV (human immunodeficiency virus infection) Hypertension Left shoulder pain Neck pain NICM (nonischemic cardiomyopathy) Rash Smokers' cough T-cell lymphoma Surgical History History of spinal surgery Family History Father Lung cancer Mother Asthma Other Substance use disorder Social History Housing: Apartment Alcohol intake: former Patient Tobacco Use Status: Former Tobacco user Years Smoked: 56 e-Cigarette/Vaping Use: Never Used Second Hand Smoke Exposure: No service: No Current occupational status: unemployed and disabled Cognitive needs: No Hearing needs: No Vision needs: Yes Questionnaire Thrive Questionnaire Date Thrive assessed: 10/06/22 MAYDA-7 AMB Questionnaire MAYDA-7 Date MAYDA - 7 assessed: 10/06/22 Source: Developed by Drs. Tom Huber, Kim Allen, Mitch Davis and colleagues, with an educational guero from [employer]. Review of Systems Const All systems reviewed & are unremarkable except as noted in HPI and below Eyes Reports no additional complaints, Denies change in vision and Denies other visual disturbances Card Denies chest pain at rest, Denies chest pain with activity, Denies edema, Denies irregular heart rhythm, Denies claudication, Denies dyspnea, Denies dyspnea on exertion, Denies orthopnea, Denies paroxysmal nocturnal dyspnea and Denies slow heart rate Resp Denies cough, Denies dyspnea and Denies dyspnea on exertion GI Denies abdominal pain, Denies change in bowel habits, Denies excessive flatus, Denies nausea and Denies vomiting Denies urinary hesitancy, Denies urinary incontinence and Denies urinary urgency Musc Denies abnormal gait, Denies atrophy, Denies deformity and Denies limited range of motion Skin/Breast Denies bleeding lesions, Denies changing lesions and Denies rash Neuro Denies abnormal gait and Denies lack of coordination Physical exam (Primary Care) Vital Signs: Last Vital Signs Pulse 94 04/05/23 14:45 BP 140/80 H 04/05/23 16:29 Pulse Ox 96 04/05/23 14:45 Oxygen Delivery Method Room Air 04/05/23 14:45 BMI result Body Mass Index 27.1 Tobacco/Smoking Status: Tobacco use Status Tobacco use date assessed 02/04/23 04/05/23 14:46 Patient Tobacco Use Status Former Tobacco user 04/05/23 14:46 Tobacco use type 12/21/22 10:46 e-Cigarette/Vaping Use Never Used 04/05/23 14:46 Thrive Assessment: Date of Thrive Assessment Date Thrive assessed 10/06/22 04/05/23 14:46 Eyes General: appearance normal, both eyes and all related structures Eyelids: Yes eyelids normal Conjunctivae: conjunctivae normal Neck Neck: Yes normal visual inspection and Yes supple Resp Effort & Inspection: normal respiratory effort Auscultation: clear to auscultation bilaterally Cardio Jugular venous distension: no JVD Rate: regular rate Rhythm: regular rhythm Heart sounds: S1 normal heart sound present and S2 normal heart sound present Extrem General: Yes full ROM Assessment and Plan Assessment & Plan (1) NICM (nonischemic cardiomyopathy): Code(s): I42.8 - Other cardiomyopathies Plan: Continue Entresto and carvedilol. The goal is to not gain 5 lb in a week. (2) HIV (human immunodeficiency virus infection): Comment: It is concerning that CD4 count continues to drop despite finishing chemotherapy and in remission and slight splenomegaly Check u/s abdomen Check cologuard as reports refused screening colonoscopy due to fear of colonoscopy See in six months with labs before and check for other infections such as syphilis and Hepatitis C. Code(s): B20 - Human immunodeficiency virus [HIV] disease Qualifiers: HIV symptom status: unspecified Qualified Code(s): B20 - Human immunodeficiency virus [HIV] disease Plan: Continue Tivicay and Descovy. Follow-up with ID. (3) Hypertension: Code(s): I10 - Essential (primary) hypertension Qualifiers: Hypertension type: essential hypertension Qualified Code(s): I10 - Essential (primary) hypertension Plan: Continue Entresto. Blood pressure goal is equal or less than 130/80. (4) T-cell lymphoma: Comment: Doing better Code(s): C85.90 - Non-Hodgkin lymphoma, unspecified, unspecified site Plan: Follow-up with Hematology-Oncology. Orders: Orders Lipid Panel Today E78.5 - Hyperlipidemia, unspecified Vitamin D 25-OH Total Today E55.9 - Vitamin D deficiency, unspecified Comprehensive [place]. Panel Fast Today I42.8 - Other cardiomyopathies NT-proBNP Today I42.8 - Other cardiomyopathies Medications: New terbinafine HCl 250 mg PO DAILY 60 tabs 0RF 60 days Refilled albuterol sulfate 90 mcg/actuation (Ventolin HFA) 2 puffs inhalation Q6H PRN 6.7 grams 1RF shortness of breath or wheezing 30 days atorvastatin 20 mg PO BEDTIME 90 tabs 1RF 90 days E78.00 - Pure hypercholesterolemia, unspecified triamcinolone acetonide 0.1% 1 appl topical BID 30 grams 1RF 30 days sacubitril-valsartan 97-103 mg (Entresto) 1 tab PO BID 180 tabs 3RF 90 days Coding Level of Care Code Est Pt Level 4 (75351) Diagnoses NICM (nonischemic cardiomyopathy) I42.8 HIV (human immunodeficiency virus infection) B20 HIV symptom status: unspecified Hypertension I10 Hypertension type: essential hypertension T-cell lymphoma C85.90 Time Spent (min) 22
[2023-04-05 16:29] VITALS: BP 140/80; BMI 27.0
== END 2023-04-05 15:22 | disposition home or self-care (01) ==
PROVIDERS: Visit Provider Internal Medicine
DX: I42.8 Other cardiomyopathies (principal); B20 Human immunodeficiency virus [HIV] disease; I10 Essential (primary) hypertension; C85.90 Non-Hodgkin lymphoma, unspecified, unspecified site
CPT/HCPCS: 99214

== ENCOUNTER 2023-05-12 08:02 | Outpatient (REF) | payer OTHER, SELFPAY ==
[2023-05-12 08:33] LABS: MANUAL DIFF FLAG NO
[2023-05-12 08:43] LABS: Basophils Percent Auto 0.3 % (0-2); Eosinophils Absolute Auto 0.2 X10*3/uL (0.0-0.4); Eosinophils Percent Auto 5.2 % (0-4); Hematocrit 42.7 % (42.0-52.0); Hemoglobin 14.1 g/dl (14.0-18.0); Lymphocytes Absolute Auto 1.2 X10*3/uL (1.2-4.9); Lymphocytes Percent Auto 36.2 % (20-40); Mean Corpuscular Hemoglobin 33.3 pg (27.0-33.0); Mean Corpuscular Volume 100.7 fL (80.0-98.0); Mean Platelet Volume 8.9 fL (9.4-12.4); Monocytes Absolute Auto 0.4 X10*3/uL (0.1-1.2); Monocytes Percent Auto 10.6 % (2-11); Neutrophils Absolute Auto 1.6 x10*3/uL (2.0-8.3); Neutrophils Percent Auto 47.7 % (45-73); Platelet Count 162 X10*3/uL (160-400); Red Blood Count 4.24 X10*6/uL (4.60-5.80); Red Cell Distribution Width 11.9 % (11.0-16.0); White Blood Count 3.3 X10*3/uL (4.8-10.8)
[2023-05-12 08:51] LABS: Alanine Aminotransferase 16 U/L (0-40); Albumin Level 4.4 g/dL (3.5-5.0); Alkaline Phosphatase 56 U/L (39-117); Anion Gap 11 (12-20); Aspartate Amino Transferase 19 U/L (5-37); Bilirubin Direct 0.4 mg/dL (0.0-0.5); Bilirubin Total 1.5 mg/dL (0.0-1.0); Blood Urea Nitrogen 16 mg/dL (9-16); Calcium 9.1 mg/dL (8.4-10.2); Carbon Dioxide 27 mmol/L (22-29); Chloride 109 mmol/L (96-108); Cholesterol 192 mg/dL (<200); Estimated Glomerular Filt Rate 59; Glucose Fasting 103 mg/dL (60-99); Glucose Random 102 mg/dL (60-115); HDL Cholesterol 66 mg/dL (>40); LDL Cholesterol Calculated 112 mg/dL (<100); Sodium 143 mmol/L (135-145); Total Protein 7.1 g/dL (6.5-8.0); Triglycerides 71 mg/dL (<150)
[2023-05-12 09:11] LABS: PSA,Total (Free>4and<10) 0.89 ng/mL (0.00-4.00)
[2023-05-12 09:12] LABS: Vitamin D 25-OH Total 27.8 ng/mL (>30)
[2023-05-14 19:08] LABS: HIV RNA PCR Qn Copies NOT DETECTED copies/mL (NOT DETECTED); HIV RNA PCR Qn Log Copies NOT DETECTED (NOT DETECTED)
[2023-05-14 20:18] LABS: HCV Log PCR <1.18 NOT DETECTED Log IU/mL (NOT DETECTED); HepC Viral Load <15 NOT DETECTED IU/mL (NOT DETECTED)
[2023-05-15 07:29] LABS: Hepatitis B Viral DNA Qn - cp NOT DETECTED Log IU/mL (NOT DETECTED); Hepatitis B Viral DNA Qn-IU/mL NOT DETECTED (NOT DETECTED)
[2023-05-16 08:09] LABS: Absolute CD3 Count 592 cells/uL (840-3060); Absolute CD4 Count 278 cells/uL (490-1740); Absolute CD8 Count 322 cells/uL (180-1170); Absolute Lymphocytes 1095 cells/uL (850-3900); CD4 CD8 Ratio 0.86 (0.86-5.00); Percent CD3 Cells 54 % (57-85); Percent CD4 Cells 25 % (30-61); Percent CD8 Cells 29 % (12-42)
[2023-05-18 17:19] LABS: NT-proBNP 1323 pg/mL (<125)
== END 2023-05-12 08:03 | disposition home or self-care (01) ==
LOC: HO.LAB 08:02
PROVIDERS: Absent Provider Internal Medicine; PCP Internal Medicine; Visit Provider Internal Medicine
DX: Z12.5 Encounter for screening for malignant neoplasm of prostate (principal); R19.00 Intra-abdominal and pelvic swelling, mass and lump, unspecified site; B20 Human immunodeficiency virus [HIV] disease; E55.9 Vitamin D deficiency, unspecified; I42.8 Other cardiomyopathies; E78.5 Hyperlipidemia, unspecified
CPT/HCPCS: 36415; 80048; 80053; 80061; 80076; 82248; 82306; 83880; 84153; 85025; 86359; 86360; 87517; 87522; 87536

== ENCOUNTER 2023-05-18 10:58 | Outpatient (AMB) | payer OTHER, SELFPAY ==
--- OUTSIDE RECORDS SUMMARY | 2023-05-18 11:00 | XMS_ITS | Continuity of Care Document ---
Author Name Unknown Organization [facility] Address [address] [place] [id number]- Care Team Providers Care Installation Technician Name Role Phone Dinesh STAPLES, Bonilla Watkins Primary Care Physician [phone] Encounter [facility] [place] Date(s): 05/25/22 - 07/16/[address] [address]- Encounter Diagnosis Benign paroxysmal vertigo, right ear(Final) - Discharge Disposition: A-D/C Home Attending Physician: Eyal Jones MD Admitting Physician: Eyal Jones MD Referring Physician: Eyal Jones MD Allergies, Adverse Reactions, Alerts Substance Reaction Severity Status morphine Active Motrin Active Medications carvedilol 25 mg oral tablet 25 mg, 1, tablet, By Mouth, 2 times a day, # 60 tablet, Refills 0, Maintenance, 05/20/20 14:09:00 EDT Start Date: 05/20/20 Status: Ordered Entresto 24 mg-26 mg oral tablet 3 tablet, By Mouth, 2 times a day, # 180 tablet, 0 Refills, Maintenance, 05/20/20 14:09:00 EDT, Tablet Start Date: 05/20/20 Status: Ordered LORazepam 1 mg oral tablet 1 tablet = 1 mg, By Mouth, Once, take 30 to 60 mins prior to MRI for claustrophophia and anxiety., # 1 tablet, 0 Refills, Soft Stop, 06/04/20 11:44:00 EDT, [facility] #[id number], 174, cm, 06/02/20 19:32:00 EDT, Height, 79.09, kg, 06/02/20 13:48:... Start Date: 06/04/20 Status: Ordered oxyCODONE 5 mg oral tablet 5 mg, 1, tablet, By Mouth, Every 6 hours, DX: T cell lymphoma, # 30 tablet, Refills 0, Tot. Refills0, Maintenance, 02/02/21 16:54:00 EDT, Route to Pharmacy Electronically, [facility] #[id number], Partial fill upon patient request, 174, cm, 01/01... Start Date: 02/02/21 Status: Ordered Problem List Condition Confirmation Course Effective Dates Status H ealth Status Informant Anxiety Confirmed Active History of arthritis Confirmed Active History of cocaine use Confirmed Active History of heroin use Confirmed Active S/P lumbar spine operation Confirmed Active HIV disease Confirmed Active HTN (hypertension) Confirmed Active Low back pain Confirmed Active Lumbar postlaminectomy syndrome Confirmed Active Nicotine use disorder Confirmed Active Social History Social History Type Response Smoking Status Current every day sm elena; Type: Cigarettes; Tobacco use times per day: 7 cigarettes/day; entered on: 01/02/16 Sex Male Patient Care team information Care Team Personnel Name: Shruthi Frost Position: [facility] Onco RN Member Role: Primary Care Nurse Name: Vivian Kerr RN Position: S RN Member Role: Primary Care Nurse Name: Bonilla Montiel NP Position: Reference Physician Member Role: PCP Address: Address: [address], [place] - Name: Svitlana Ogden RN Position: S Onco RN Member Role: Primary Care Nurse Name: Norma Muro RN Position: [facility] Onco RN Member Role: Primary Care Nurse Name: Lito Frazier RN Position: S RN Member Role: Primary Care Nurse Name: Alesia Frye Position: [facility] Onco RN Member Role: Primary Care Nurse Care Team Related Persons Name: NURIA HANLEY Address: home [address] [place] [address] Name: PANKAJ BRICEÑO Address: home [address] [place] [address] Name: GUSTAVO BRICEÑO Address: home [place], [place] Name: BETHEL CONTRERAS Address: home [address] [place] [address]
--- OUTSIDE RECORDS SUMMARY | 2023-05-18 11:00 | XMS_ITS | Continuity of Care Document ---
Author Name Unknown Organization [facility] ter Address [address] [place] [address]- Care Team Providers Care Firefighter Type One Name Role Phone Dinesh STAPLES, Bonilla Watkins Primary Care Physician Encounter [facility] [place] ACCT R [id number] Date(s): 06/02/20 - 06/02/[address] [address]- [facility] Discharge Disposition: A-D/C AMA Attending Physician: Dorie Kendrick MD Admitting Physician: Dorie Kendrick MD Referring Physician: Dorie Kendrick MD Allergies, Adverse Reactions, Alerts Substance Reaction [...] EDT, Tablet Start Date: 05/20/20 Status: Ordered oxyCODONE 5 mg oral tablet 5 mg, 1, tablet, By Mouth, Every 6 hours, # 30 tablet, Refills 0, Tot. Refills 0, Maintenance, 05/29/20 12:09:00 EDT, Route to Pharmacy Electronically, [facility] #[id number], Partial fill upon patient request, 174, cm, 05/29/20 10:51:00 EDT, Hei... Start Date: 05/29/20 Status: Ordered Problem List Condition Effective Dates Status Health Status Inform ant Anxiety(Confirmed) Active History of arthritis(Confirmed) Active History of cocaine use(Confirmed) Active History of heroin use(Confirmed) Active S/P lumbar spine operation(Confirmed) Active HIV disease(Confirmed) Active HTN (hypertension)(Confirmed) Active Low back pain(Confirmed) Active Lumbar postlaminectomy syndrome(Confirmed) Active Nicotine use disorder(Confirmed) Active Vital Signs Most recent to oldest [Reference Range]: 1 2 3 Height 174 cm (06/02/20 7:32 PM) 174 cm (06/02/20 6:16 PM) 174 cm (06/02/20 2:03 PM) Weight 79.09 kg (06/02/20 2:03 PM) 79.09 kg (06/02/20 1:48 PM) Oxygen Saturation [94-100 %] 99 % (06/02/20 6:16 PM) 99 % (06/02/20 2:00 PM) Pulse Rate [55-90 bpm] 85 bpm (06/02/20 6:16 PM) 81 bpm (06/02/20 2:00 PM) Blood Pressure [90-138/55-84 mm Hg] 165/84mm Hg *H* (06/02/20 7:32 PM) 164/83mm Hg *H* (06/02/20 6:16 PM) 192/98mm Hg *H* (06/02/20 2:00 PM) Respiratory Rate [16-30 br/min] 18 br/min (06/02/20 6:16 PM) 20 br/min (06/02/20 2:00 PM) Temperature [96.8-100.4 DegF] 97.3 DegF (06/02/20 6:16 PM) 98.2 DegF (06/02/20 2:00 PM) Mode of Delivery (Oxygen) Room air (06/02/20 6:16 PM) Room air (06/02/20 2:00 PM) Blood pressure sites Arm, left (06/02/20 7:32 PM) Arm, left (06/02/20 6:16 PM) Arm, right (06/02/20 2:00 PM) Temperature Route Oral (06/02/20 6:16 PM) Oral (06/02/20 2:00 PM) Dry Weight 79.09 kg (06/02/20 1:48 PM) Social History Social History Type Response Smoking Status Current every day avelino parker; Type: Cigarettes; Tobacco use times per day: 7 cigarettes/day; entered on: 01/02/16 Sex
--- OUTSIDE RECORDS SUMMARY | 2023-05-18 11:00 | XMS_ITS | Continuity of Care Document ---
Author Name Unknown Organization [facility] Address [address] [place] [address]- Care Team Providers Care Beam Racker Name Role Phone Dinesh STAPLES, Bonilla Watkins Primary Care Physician [place] [facility] [place]/05[place]22 - 09/04/22 [facility] Care [address] [place] [address]- Attending Physician: Margy Méndez Admitting Physician: AdmMargy enamorado Referring Physician: AdmtrMargy Allergies, Adverse Reactions, Alerts Substance Reaction Severity [...] 0 Refills, Soft Stop, 06/04/20 11:44:00 EDT, [facility] #[id number], 174, cm, 06/02/20 19:32:00 EDT, Height, 79.09, kg, 06/02/20 13:48:... Start Date: 06/04/20 Status: Ordered oxyCODONE 5 mg oral tablet 5 mg, 1, tablet, By Mouth, Every 6 hours, DX: T cell lymphoma, # 30 tablet, Refills 0, Tot. Refills0, Maintenance, 02/02/21 16:54:00 EDT, Route to Pharmacy Electronically, [facility] #[id number], Partial fill upon patient request, 174, cm, [...] Response Smoking Status Current every day sm [place]; Type: Cigarettes; Tobacco use times per day: 7 cigarettes/day; entered on: 01/02/16 Sex Male Patient Care team information Care Team Personnel Name: Shruthi Frost Position: S Onco RN Member Role: Primary Care Nurse Name: Vivian Kerr RN Position: S RN Member Role: Primary Care Nurse Name: Bonilla Montiel NP Position: Reference Physician Member Role: PCP Address: Address: [address] [place] [address]- Name: Svitlana Ogden RN Position: S Onco RN Member Role: Primary Care Nurse Name: Norma Muro RN Position: S Onco RN Member Role: Primary Care Nurse Name: Lito Frazier RN Position: S RN Member Role: Primary Care Nurse Name: Alesia Frye Position: [facility] Onco RN Member Role: Primary Care Nurse Care Team Related Persons Name: NURIA HANLEY Address: home [address] [place] [address] Name: PANKAJ BRICEÑO Address: home [address] [place] [address] Name: GUSTAVO BRICEÑO Address: home [place], [place] Name: BETHEL CONTRERAS Address: home [address] [place] [address]
--- OUTSIDE RECORDS SUMMARY | 2023-05-18 11:01 | XMS_ITS | Continuity of Care Document ---
Author Name Unknown Organization [facility] Address [address] [place] [address]- Care Team Providers Care Freelance Makeup Artist Name Role Phone Bonilla Montiel NP Primary Care Physician [place] [facility] [place] [id number] Date(s): 08/05/22 - 10/10/22 [facility] Care [address] [place] [address]- Discharge Disposition: A-D/C Home Attending Physician: Dorie Kendrick MD Admitting Physician: Dorie Kendrick MD Referring Physician: Bonilla Montiel NP Allergies, Adverse Reactions, Alerts Substance Reaction Severity [...] 0 Refills, Soft Stop, 06/04/20 11:44:00 EDT, [facility] #[id number], 174, cm, 06/02/20 19:32:00 EDT, Height, 79.09, kg, 06/02/20 13:48:... Start Date: 06/04/20 Status: Ordered oxyCODONE 5 mg oral tablet 5 mg, 1, tablet, By Mouth, Every 6 hours, DX: T cell lymphoma, # 30 tablet, Refills 0, Tot. Refills0, Maintenance, 02/02/21 16:54:00 EDT, Route to Pharmacy Electronically, [facility] #[id number], Partial fill upon patient request, 174, cm, [...] Confirmed Active Nicotine use disorder Confirmed Active Vital Signs Most recent to oldest [Reference Range]: 1 Height 174 cm (08/10/22 10:37 AM) Weight 80.5 kg (08/10/22 10:37 AM) Oxygen Saturation [94-100 %] 94 % (08/10/22 10:37 AM) Pulse Rate [55-90 bpm] 89 bpm (08/10/22 10:37 AM) Body Mass Index [18.5-24.99 kg/m2] 26.59 kg/m2 *H* (08/10/22 10:37 AM) Blood Pressure [90-138/55-84 mm Hg] 109/ 71mm Hg (08/10/22 10:37 AM) Temperature [96.8-100.4 DegF] 97.6 DegF (08/10/22 10:37 AM) Blood pressure sites Arm, right (08/10/22 10:37 AM) Temperature Route Oral (08/10/22 10:37 AM) Dry Weight 80.5 kg (08/10/22 10:37 AM) Weight Obtained Via Standing scale (08/10/22 10:37 AM) Dry Weight Obtained Via Standing scale (08/10/22 10:37 AM) Social History Social History Type Response Smoking Status Current every day avelino parker; Type: Cigarettes; Tobacco use times per day: 7 cigarettes/day; entered on: 01/02/16 Sex Male Note * Namrata Schuster [place]: PERFORM, SIGN, VERIFY Event Display: Patient Education/Instruction Authored Date: [id number] [facility] *Heme/Onc Adult Clinical Summary Name GONZALEZ BRICEÑO Age 72 Years 1950 PCP Dinesh STAPLES , Bonilla Watkins PCP Visit Date 08/05/2022 15:58:00 Additional Instructions: Scheduled Appointments?? Future Appointments ?No Future Appointments Scheduled Follow-Up Instructions ?? With: Address: When: Dorie Kendrick 02/08/2023 10:15 AM Comments: @3400 Diagnosis Medications: Please continue your medications until treatment is completed or stopped by your provider. Discuss any questions related to medications with your provider. Medications to Continue with No Changes These medications were not printed or sent to your pharmacy Carvedilol (carvedilol 25 mg oral tablet) 1 tab(s) Oral twice a day. Next Dose: Lorazepam (LORazepam 1 mg oral tablet) 1 tab(s) Oral once. take 30 to 60 mins prior to MRI for claustrophophia and anxiety.. Refills: 0. Next Dose: Oxycodone (oxyCODONE 5 mg oral tablet) 1 tab(s) Oral every 6 hours. DX: T cell lymphoma. Refills: 0. Next Dose: sacubitril-valsartan (Entresto 24 mg-26 mg oral tablet) 3 tab(s) Oral twice a day. Next Dose: Allergy Info:?? Motrin; morphine Medications Given This Visit Future Orders ?No future orders Vital Signs Height 174 cm Weight 80.5 kg BMI 26.59 kg/m2 Blood Pressure 109 mm Hg/71 mm Hg Temperature 97.6 DegF Pulse Rate 89 bpm Respiratory Rate 02 Sat Mode of Delivery 94 %/ You can now view a summary of your hospital visit from the comfort of your home through a free online portal called [employer]. [employer] is a website that allows you to securely view your medical information including discharge summary, medications and follow-up visits. ??You can alsosend a secure electronic message to your doctor???s office to request appointments, renew medications or just ask a question. You can enroll at [email or web address] or register during your next office visit. Disclaimer:?? The information provided is of a general nature and is intended to be used in conjunction with the recommendations and advice of your health care practitioner. ??Every effort has been made to ensure that the information provided is accurate and complete at the time it is provided to you however, as your needs change, or, as new ??information becomes available, different or additional instructions may be required. If you have questions, please consult with your primary care provider or pharmacist, as appropriate. ??This information is not intended to serve as substitution for assessment and evaluation by a qualified health care provider. If you do not have a primary care provider, you may find a [facility] provider by calling [facility] at [phone]. For information about the plan of care including goals and instructions for your diagnosis, please see the patient education orders section of this document. Patient Education Materials?? The content of this educational material or handout may have been modified, supplemented, or adapted from its original content and format to support your individualized medical care. Patient Care team information Care Team Personnel Name: Shruthi Frost Position: S Onco RN Member Role: Primary Care Nurse Name: Vivian Kerr RN Position: S RN Member Role: Primary Care Nurse Name: Bonilla Montiel NP Position: Reference Physician Member Role: PCP Address: Address: [address] [place] [address] Name: Svitlana Ogden RN Position: S Onco RN Member Role: Primary Care Nurse Name: Norma Muro RN Position: S Onco RN Member Role: Primary Care Nurse Name: Lito Frazier RN Position: S RN Member Role: Primary Care Nurse Name: Alesia Frye Position: S Onco RN Member Role: Primary Care Nurse Care Team Related Persons Name: NURIA HANLEY Address: home [address] [place] [address] Name: PANKAJ BRICEÑO Address: home [address] [place] [address] Name: GUSTAVO BRICEÑO Address: [place] [address] Name: BETHEL CONTRERAS Address: home [address] [place] [address]
--- OUTSIDE RECORDS SUMMARY | 2023-05-18 11:01 | XMS_ITS | Continuity of Care Document ---
Author Name Unknown Organization [facility] Address [address] [place] [address]- Care Team Providers Care Physicians And Surgeons Name Role Phone Dinesh STAPLES, Bonilla Watkins Primary Care Physician Encounter [facility] [id number] Date(s): 06/03/21 - 07/03/21 [facility] Care [address] [place] [address]- Attending Physician: Margy Méndez Admitting Physician: AdmtrMargy Referring Physician: Admtr, ArGeeta Allergies, Adverse Reactions, Alerts Substance Reaction Severity [...] 0 Refills, Soft Stop, 06/04/20 11:44:00 EDT, [facility] #[id number], 174, cm, 06/02/20 19:32:00 EDT, Height, 79.09, kg, 06/02/20 13:48:... Start Date: 06/04/20 Status: Ordered oxyCODONE 5 mg oral tablet 5 mg, 1, tablet, By Mouth, Every 6 hours, DX: T cell lymphoma, # 30 tablet, Refills 0, Tot. Refills0, Maintenance, 02/02/21 16:54:00 EDT, Route to Pharmacy Electronically, [facility] #[id number], Partial fill upon patient request, 174, cm, 01/01... Start Date: 02/02/21 Status: Ordered Problem List Condition Effective Dates Status Health Status Inform ant Anxiety(Confirmed) Active History of arthritis(Confirmed) Active History of cocaine use(Confirmed) Active History of heroin use(Confirmed) Active S/P lumbar spine operation(Confirmed) Active HIV disease(Confirmed) Active HTN (hypertension)(Confirmed) Active Low back pain(Confirmed) Active Lumbar postlaminectomy syndrome(Confirmed) Active Nicotine use disorder(Confirmed) Active Social History Social History Type Response Smoking Status Current every day avelino parker; Type: Cigarettes; Tobacco use times per day: 7 cigarettes/day; entered on: 01/02/16 Sex Male
--- OUTSIDE RECORDS SUMMARY | 2023-05-18 11:01 | XMS_ITS | Continuity of Care Document ---
Author Name Unknown Organization [facility] Address [address] [place] [address]- Care Team Providers Care Rough Rice Grader Name Role Phone Bonilla Montiel NP Primary Care Physician [phone] Encounter [facility] [place] ACCT R [id number] Date(s): 01/28/23 - 05/16/23 [facility] Care [address] [place] [address]- Discharge Disposition: A-D/C Home Attending Physician: Dorie [...] 0 Refills, Soft Stop, 06/04/20 11:44:00 EDT, [facility] #[id number], 174, cm, 06/02/20 19:32:00 EDT, Height, 79.09, kg, 06/02/20 13:48:... Start Date: 06/04/20 Status: Ordered oxyCODONE 5 mg oral tablet 5 mg, 1, tablet, By Mouth, Every 6 hours, DX: T cell lymphoma, # 30 tablet, Refills 0, Tot. Refills0, Maintenance, 02/02/21 16:54:00 EDT, Route to Pharmacy Electronically, [facility] #[id number], Partial fill upon patient request, 174, cm, [...] oldest [Reference Range]: 1 Height 174 cm (03/16/23 1:54 PM) Weight 83.3 kg (03/16/23 1:54 PM) Oxygen Saturation [94-100 %] 96 % (03/16/23 1:54 PM) Pulse Rate [55-90 bpm] 75 bpm (03/16/23 1:54 PM) Body Mass Index [18.5-24.99 kg/m2] 27.51 kg/m2 *H* (03/16/23 1:54 PM) Blood Pressure [90-138/55-84 mm Hg] 160/ 86mm Hg *H* (03/16/23 1:54 PM) Temperature [96.8-100.4 DegF] 98.0 DegF (03/16/23 1:54 PM) Blood pressure sites Arm, left (03/16/23 1:54 PM) Temperature Route Oral (03/16/23 1:54 PM) Dry Weight 83.3 kg (03/16/23 1:54 PM) Social History Social History Type Response Smoking Status Current every day sm oker; Type: Cigarettes; Tobacco use times per day: 7 cigarettes/day; entered on: 01/02/16 Sex Male Patient Care team information Care Team Personnel Name: Shruthi Frost Position: S Onco RN Member Role: Primary Care Nurse Name: Vivian Kerr RN Position: S RN Member Role: Primary Care Nurse Name: Bonilla Montiel NP Position: Reference Physician Member Role: PCP Address: Address: [address] [place] [address]- Name: Svitlana Ogden RN Position: [facility] Onco RN Member Role: Primary Care Nurse Name: Norma Muro RN Position: [facility] Onco RN Member Role: Primary Care Nurse Name: Lito Frazier RN Position: [facility] RN Member Role: Primary Care Nurse Name: Alesia Frye Position: [facility] Onco RN Member Role: Primary Care Nurse Name: Dorie Kendrick MD Position: [facility] Physician - Oncology Med Service: Hematology & Oncology Member Role: Admitting Physician Care Team Related Persons Name: NURIA HANLEY Address: home [address] [place] [address] Name: PANKAJ BRICEÑO Address: home [address] [place] [address] Name: GUSTAVO BRICEÑO Address: home [place], [place] Name: BETHEL CONTRERAS Address: home [address] [place] [address]
--- OUTSIDE RECORDS SUMMARY | 2023-05-18 11:01 | XMS_ITS | Continuity of Care Document ---
Author Name Unknown Organization [facility] ter Address [address] [place] [address]- Care Team Providers Care Heating Repair Technician Name Role Phone Dinesh STAPLES, Bonilla Watkins Primary Care Physician [phone] [place] [facility] [place](s[place] 03/28/20 - 03/28/[address] [address]- [facility] Encounter Diagnosis Neck mass(Final) - 03/28/20 Discharge Disposition: A-D/C Home Attending Physician: Manuel Haney MD Admitting Physician: Manuel Haney MD Referring Physician: Not on Staff, Referring MD Allergies, Adverse Reactions, Alerts Substance Reaction Severity Status morphine Active Motrin Active Medications lisinopril 40 mg oral tablet 1 tablet = 40 mg, By Mouth, Daily, 0 Refills, Maintenance, 12/10/15 9:46:53 Start Date: 12/10/15 Status: Ordered metoprolol 50 mg oral tablet 50 mg, 1, tablet, By Mouth, 2 times a day, Refills 0, Maintenance, 12/10/15 9:47:10 Start Date: 12/10/15 Status: Ordered Problem List Condition Effective Dates Status Health Status Inform ant Anxiety(Confirmed) Active History of arthritis(Confirmed) Active History of cocaine use(Confirmed) Active History of heroin use(Confirmed) Active S/P lumbar spine operation(Confirmed) Active HIV disease(Confirmed) Active HTN (hypertension)(Confirmed) Active Low back pain(Confirmed) Active Lumbar postlaminectomy syndrome(Confirmed) Active Nicotine use disorder(Confirmed) Active Vital Signs Most recent to oldest [Reference Range]: 1 2 3 Oxygen Saturation [94-100 %] 95 % (03/28/20 12:50 PM) 95 % (03/28/20 11:20 AM) 95 % (03/28/20 7:56 AM) Pulse Rate [55-90 bpm] 80 bpm (03/28/20 12:50 PM) 79 bpm (03/28/20 11:20 AM) 90 bpm (03/28/20 7:56 AM) Blood Pressure [90-138/55-84 mm Hg] 166/90mm Hg *H* (03/28/20 12:50 PM) 191/95mm Hg *H* (03/28/20 11:20 AM) 164/110mm Hg *H* (03/28/20 7:56 AM) Respiratory Rate [16-30 br/min] 18 br/min (03/28/20 12:50 PM) 18 br/min (03/28/20 11:20 AM) 18 br/min (03/28/20 7:56 AM) Temperature [96.8-100.4 DegF] 98.0 DegF (03/28/20 11:20 AM) 98.0 DegF (03/28/20 7:56 AM) Mode of Delivery (Oxygen) Room air (03/28/20 12:50 PM) Room air (03/28/20 11:20 AM) Room air (03/28/20 7:56 AM) Blood pressure sites Arm, right (03/28/20 12:50 PM) Arm, right (03/28/20 11:20 AM) Arm, left (03/28/20 7:56 AM) Temperature Route Oral (03/28/20 11:20 AM) Oral (03/28/20 7:56 AM) Social History Social History Type Response Smoking Status Current every day avelino parker; Type: Cigarettes; Tobacco use times per day: 7 cigarettes/day; entered on: 01/02/16 Sex
--- OUTSIDE RECORDS SUMMARY | 2023-05-18 11:01 | XMS_ITS | Continuity of Care Document ---
Author Name Unknown Organization [facility] Address [address] [place] [address]- Care Team Providers Care Engine Dispatcher Name Role Phone Dinesh STAPLES, Bonilla Watkins Primary Care Physician [phone] [place] [facility] [place] - 07/24/[address] [address] Attending Physician: Margy Méndez Admitting Physician: AdmtrMargy Referring Physician: AdmtrMargy Allergies, Adverse Reactions, Alerts [...] 0 Refills, Soft Stop, 06/04/20 11:44:00 EDT, [facility] #[id number], 174, cm, 06/02/20 19:32:00 EDT, Height, 79.09, kg, 06/02/20 13:48:... Start Date: 06/04/20 Status: Ordered oxyCODONE 5 mg oral tablet 5 mg, 1, tablet, By Mouth, Every 6 hours, DX: T cell lymphoma, # 30 tablet, Refills 0, Tot. Refills0, Maintenance, 02/02/21 16:54:00 EDT, Route to Pharmacy Electronically, [facility] #[id number], Partial fill upon patient request, 174, cm, [...] Reference Physician Member Role: PCP Address: Address: [address] [place] [address] Name: Svitlana Ogden RN Position: S Onco RN Member Role: Primary Care Nurse Name: Norma Muro RN Position: S Onco RN Member Role: Primary Care Nurse Name: Lito Frazier RN Position: S RN Member Role: Primary Care Nurse Name: Alesia Frye Position: S Onco RN Member Role: Primary Care Nurse Care Team Related Persons Name: NURIA HANLEY Address: home [address] [place] [address] Name: PANKAJ BRICEÑO Address: home [address] [place] [address] Name: GUSTAVO BRICEÑO Address: home [place], [place] Name: BETHEL CONTRERAS Address: [address] [place] [address]
--- OUTSIDE RECORDS SUMMARY | 2023-05-18 11:01 | XMS_ITS | Continuity of Care Document ---
Author Name Unknown Organization [facility] ancer Care Address [address] [place] [address]- Care Team Providers Care Dope Weigh Operator Name Role Phone Dinesh STAPLES, Bonilla Watkins Primary Care Physician Encounter [facility] Date(s): 09/16/20 - 10/16/20 [facility] Care [address] [place] [id number] Allergies, Adverse Reactions, Alerts Substance Reaction Severity Status morphine Active Motrin Active Medications allopurinol 300 mg oral tablet 300 mg, 1, tablet, By Mouth, Daily, to prevent tumor lysis syndrome, # 30 tablet, Refills 0, Tot. Refills 0, Maintenance, 06/09/20 12:52:00 EDT, Route to Pharmacy Electronically, [facility]#[id number], 174, cm, 06/05/20 10:38:00 EDT, Height, 80.... Start Date: 06/09/20 Stop Date: 07/09/20 Status: Ordered carvedilol 25 mg oral tablet 25 mg, 1, tablet, By Mouth, 2 times a day, # 60 tablet, Refills 0, Maintenance, 05/20/20 14:09:00 EDT Start Date: 05/20/20 Status: Ordered dexamethasone 2 mg oral tablet 1 tablet = 2 mg, By Mouth, Daily, with food, # 7 tablet, 0 Refills, Acute 10/25/20 8:00:00 EST, 10/14/20 13:56:00 EST, [facility] #[id number], Partial fill upon patient request if the prescription is for a schedule II opioid drug., 174, cm, 10/14... Start Date: 10/14/20 Stop Date: 10/25/20 Status: Ordered docusate sodium 100 mg oral tablet 2 tablet = 200 mg, By Mouth, Daily, PRN for constipation, # 60 tablet, 0 Refills, Maintenance, 06/05/20 13:17:00 EDT, Tablet, [facility] #[id number], 174, cm, 06/05/20 10:38:00 EDT, Height, 80.7, kg, 06/05/20 10:38:00 EDT, Dry Weight Start Date: 06/05/20 Status: Ordered Entresto 24 mg-26 mg oral [...] 0 Refills, Soft Stop, 06/04/20 11:44:00 EDT, [facility] #[id number], 174, cm, 06/02/20 19:32:00 EDT, Height, 79.09, kg, 06/02/20 13:48:... Start Date: 06/04/20 Status: Ordered olanzapine 2.5 mg oral tablet 2.5 mg, 1, tablet, By Mouth, Daily, fill this script instead of the 5mg qday script I sent earlier., # 30 tablet, Refills 2, Tot. Refills 2, Maintenance, 08/18/20 10:27:00 EST, Route to Pharmacy Electronically, [facility] #[id number], Partial christiano... Start Date: 08/18/20 Status: Ordered olanzapine 5 mg oral tablet 5 mg, 1, tablet, By Mouth, Daily, # 30 tablet, Refills 1, Tot. Refills 1, Maintenance, 08/18/20 10:26:00 EST, Route to Pharmacy Electronically, [facility] #[id number], Partial fill upon patient request if the prescription is for a schedule II opi... Start Date: 08/18/20 Status: Ordered omeprazole 20 mg oral enteric coated capsule 1 capsule, By Mouth, Daily, # 90 capsule, 0 Refills, Maintenance, 09/05/20 8:45:00 EST, [facility] #[id number], 174, cm, 08/28/20 15:23:00 EST, Height, 73.8, kg, 08/27/20 10:18:00 EST, Dry Weight Start Date: 09/05/20 Status: Ordered oxyCODONE 10 mg oral tablet 1 tablet = 10 mg, By Mouth, Every 6 hours, PRN as needed for pain, for 7 days, # 28 tablet, 0 Refills, Acute 10/22/20 12:27:00 EST, 10/15/20 12:27:00 EST, Tablet, [facility] #[id number], Partialfill upon patient request if the prescription is fo... Start Date: 10/15/20 Stop Date: 10/22/20 Status: Ordered oxyCODONE 5 mg oral tablet 5 mg, 1, tablet, By Mouth, Every 6 hours, DX: T cell lymphoma, # 30 tablet, Refills 0, Tot. Refills0, Maintenance, 09/16/20 9:18:00 EST, Route to Pharmacy Electronically, [facility] #[id number], Partial fill upon patient request, 174, cm, ... Start Date: 09/16/20 Status: Ordered predniSONE 50 mg oral tablet See Instructions, 2 tabs (100mg) By Mouth Daily for 5 days with each chemo treatment, start day 1, as directed, with food or milk, # 40 tablet, 3 Refills, Maintenance, 07/18/20 15:51:00 EST, [facility] #[id number], 174, cm, 07/18/20 14:57:00 ES... Start Date: 07/18/20 Status: Ordered prochlorperazine 10 mg oral tablet 1 tablet, By Mouth, Every 6 hours, PRN NEEDED FOR NAUSEA OR VOMITING, MAY CAUSE DROWSINESS, # 30tablet, 0 Refills, Acute, 07/07/20 8:24:00 EST, [facility] #[id number], 174, cm, 07/03/20 17:24:00 EST, Height, 81.4, kg, 06/26/20 14:07:00 EDTEleanor.. Start Date: 07/07/20 Status: Ordered Zofran 8 mg oral tablet 1 tablet = 8 mg, By Mouth, Every 8 hours, PRN as needed for nausea/vomiting, # 30 tablet, 1 Refills, Maintenance, 08/28/20 15:19:00 [facility] #[id number], Partial fill upon patient requestif the prescription is for a schedule II opioid humza... Start Date: 08/28/20 Status: Ordered Problem List Condition Effective Dates [...]
--- OUTSIDE RECORDS SUMMARY | 2023-05-18 11:01 | XMS_ITS | Continuity of Care Document ---
Author Name Unknown Organization [facility] an[facility] Care Address [address] [place] [address]- Care Team Providers Care Church Musician Name Role Phone Dinesh STAPLES, Bonilla Watkins Primary Care Physician [place] [facility] Date(s): 05/28/20 - 06/27/20 [facility] [address] [place] [address]- [facility] Attending Physician: Admfei, Margy Admitting Physician: Admtr, Margy Referring Physician: Admtr, Ar8 Allergies, Adverse Reactions, Alerts Substance Reaction Severity Status morphine Active Motrin Active Medications allopurinol 300 mg oral tablet 300 mg, 1, tablet, By Mouth, Daily, to prevent tumor lysis syndrome, # 30 tablet, Refills 0, Tot. Refills 0, Maintenance, 06/09/20 12:52:00 EDT, Route to Pharmacy Electronically, [facility]#[id number], 174, cm, 06/05/20 10:38:00 EDT, Height, 80.... Start Date: 06/09/20 Stop Date: 07/09/20 Status: Ordered carvedilol 25 mg oral tablet 25 mg, 1, tablet, By Mouth, 2 times a day, # 60 tablet, Refills 0, Maintenance, 05/20/20 14:09:00 EDT Start Date: 05/20/20 Status: Ordered docusate sodium 100 mg oral tablet 2 tablet = 200 mg, By Mouth, Daily, PRN for constipation, # 60 tablet, 0 Refills, Maintenance, 06/05/20 13:17:00 EDT, Tablet, [facility] #[id number], 174, cm, 06/05/20 10:38:00 EDT, Height, 80.7, kg, 06/05/20 10:38:00 EDT, Dry Weight Start Date: 06/05/20 Status: Ordered Entresto 24 mg-26 mg oral tablet 3 tablet, By Mouth, 2 times a day, # 180 tablet, 0 Refills, Maintenance, 05/20/20 14:09:00 EDT, Tablet Start Date: 05/20/20 Status: Ordered lidocaine-prilocaine 2.5%-2.5% topical cream See Instructions, apply small dollop to [facility] 1 hr prior to appt and cover with plastic, #30 Gm, 1 Refills, Maintenance, 06/10/20 11:36:00 EDT, Cream, [facility] #[id number], apply small dollop to [facility] 1 hr prior to appt and c... Start Date: 06/10/20 Status: Ordered LORazepam 1 mg oral tablet 1 tablet = 1 mg, By Mouth, Once, take 30 to 60 mins prior to MRI for claustrophophia and anxiety., # 1 tablet, 0 Refills, Soft Stop, 06/04/20 11:44:00 EDT, [facility] #[id number], 174, cm, 06/02/20 19:32:00 EDT, Height, 79.09, kg, 06/02/20 13:48:... Start Date: 06/04/20 Status: Ordered omeprazole 20 mg oral enteric coated capsule 1 capsule = 20 mg, By Mouth, Daily, Indonesian instructions please., # 90 capsule, 0 Refills, Maintenance, 06/10/20 11:39:00 EDT, EC Capsule, [facility] #[id number], 174, cm, 06/10/20 10:03:00 EDT,Height, 80.9, kg, 06/10/20 10:03:00 EDT, Dry Weight Start Date: 06/10/20 Status: Ordered oxyCODONE 5 mg oral tablet 5 mg, 1, tablet, By Mouth, Every 6 hours, DX: T cell lymphoma, # 30 tablet, Refills 0, Tot. Refills0, Maintenance, 06/26/20 14:47:00 EDT, Route to Pharmacy Electronically, [facility] #[id number], Partial fill upon patient request, 174, cm, 06/26... Start Date: 06/26/20 Status: Ordered predniSONE 50 mg oral tablet See Instructions, 2 tabs (100mg) By Mouth Daily for 5 days with each chemo treatment, start day 1, as directed, with food or milk, # 10 tablet, 5 Refills, Maintenance, 06/10/20 11:32:00 EDT, [facility] #[id number], 174, cm, 06/10/20 10:03:00 ED... Start Date: 06/10/20 Status: Ordered prochlorperazine 10 mg oral tablet 1 tablet, By Mouth, Every 6 hours, PRN NEEDED FOR NAUSEA OR VOMITING, MAY CAUSE DROWSINESS, # 30tablet, 0 Refills, Acute, 06/23/20 8:29:00 EDT, [facility] #[id number], 174, cm, 06/12/20 16:58:00 EDT, Height, 80.9, kg, 06/10/20 10:03:00 EDT, D... Start Date: 06/23/20 Status: Ordered Senna 8.6 mg oral tablet 17.2 mg, 2, tablet, By Mouth, Daily at bedtime, PRN, for 30 days, # 60 tablet, Refills 0, Tot. Refills 0, Acute, for constipation, 07/05/20 13:18:00 EST, 06/05/20 13:18:00 EDT, Route to Pharmacy Electronically, [facility] #[id number] Tablet, 174,... Start Date: 06/05/20 Stop Date: 07/05/20 Status: Ordered Problem List Condition Effective Dates [...]
--- OUTSIDE RECORDS SUMMARY | 2023-05-18 11:01 | XMS_ITS | Continuity of Care Document ---
Author Name Unknown Organization [facility] anc Care Address [address] [place] [address]- Care Team Providers Care Programming Engineer Name Role Phone Dinesh STAPLES, Bonilla Watkins Primary Care Physician [phone] [facility] ACCT R [id number] Date(s): 01/28/23 - 02/27/23 [facility] [address] [place] [address]- Attending Physician: Margy Méndez Admitting Physician: AdmtrMargy [...] 0 Refills, Soft Stop, 06/04/20 11:44:00 EDT, [facility] #[id number], 174, cm, 06/02/20 19:32:00 EDT, Height, 79.09, kg, 06/02/20 13:48:... Start Date: 06/04/20 Status: Ordered oxyCODONE 5 mg oral tablet 5 mg, 1, tablet, By Mouth, Every 6 hours, DX: T cell lymphoma, # 30 tablet, Refills 0, Tot. Refills0, Maintenance, 02/02/21 16:54:00 EDT, Route to Pharmacy Electronically, [facility] #[id number], Partial fill upon patient request, 174, cm, [...] team information Care Team Personnel Name: Shruthi Frots Position: S Onco RN Member Role: Primary Care Nurse Name: Vivian Kerr RN Position: S RN Member Role: Primary Care Nurse Name: Bonilla Montiel NP Position: Reference Physician Member Role: PCP Address: Address: [address] [place] [address]- Name: Svitlana Ogden RN Position: [facility] Onco RN Member Role: Primary Care Nurse Name: Norma Muro RN Position: S Onco RN Member Role: Primary Care Nurse Name: Lito Frazier RN Position: S RN Member Role: Primary Care Nurse Name: Alesia Frye Position: [facility] Onco RN Member Role: Primary Care Nurse Care Team Related Persons Name: NURIA HANLEY Address: home [address] [place] [address] Name: PANKAJ BRICEÑO Address: home [address] [place] [address] Name: GUSTAVO BRICEÑO Address: home [place], [place] Name: BETHEL CONTRERAS Address: home [address] [place] [address]
--- OUTSIDE RECORDS SUMMARY | 2023-05-18 11:01 | XMS_ITS | Continuity of Care Document ---
Author Name Unknown Organization [facility] ancer Care Address [address] [place] [address]- Care Team Providers Care Cardiac Rehab Nurse Name Role Phone Dinesh STAPLES, Bonilla Watkins Primary Care Physician En[facility] [id number] Date(s): 03/23/21 - 04/22/21 [facility] Care [address] [place] [address]- Attending Physician: Margy Méndez Admitting Physician: AdmtrMargy [...] 0 Refills, Soft Stop, 06/04/20 11:44:00 EDT, [facility] #[id number], 174, cm, 06/02/20 19:32:00 EDT, Height, 79.09, kg, 06/02/20 13:48:... Start Date: 06/04/20 Status: Ordered oxyCODONE 5 mg oral tablet 5 mg, 1, tablet, By Mouth, Every 6 hours, DX: T cell lymphoma, # 30 tablet, Refills 0, Tot. Refills0, Maintenance, 02/02/21 16:54:00 EDT, Route to [facility]ically[facility][id number], Partial fill upon patient request, 174, cm, [...]
--- OUTSIDE RECORDS SUMMARY | 2023-05-18 11:01 | XMS_ITS | Continuity of Care Document ---
Author Name Unknown Organization [facility] ancer Care Address [address] [place] [address]- Care Team Providers Care Excelsior Machine Tender Name Role Phone Dinesh STAPLES, Bonilla Watkins Primary Care Physician Encounter [facility] ACCT R [id number] Date(s): 09/30/21 - 08/05/22 [facility] Care [address] [place] [address]- Discharge Disposition: A-D/C Home Attending Physician: Dorie Kendrick MD Admitting Physician: Dorie Kendrick MD Referring Physician: Ryan Saha MD , Serena Escudero Allergies, Adverse Reactions, Alerts Substance Reaction Severity [...] 0 Refills, Soft Stop, 06/04/20 11:44:00 EDT, [facility] #[id number], 174, cm, 06/02/20 19:32:00 EDT, Height, 79.09, kg, 06/02/20 13:48:... Start Date: 06/04/20 Status: Ordered oxyCODONE 5 mg oral tablet 5 mg, 1, tablet, By Mouth, Every 6 hours, DX: T cell lymphoma, # 30 tablet, Refills 0, Tot. Refills0, Maintenance, 02/02/21 16:54:00 EDT, Route to Pharmacy Electronically, [facility] #[id number], Partial fill upon patient request, 174, cm, [...] recent to oldest [Reference Range]: 1 2 Height 174 cm (04/13/22 9:39 AM) 174 cm (10/08/21 9:54 AM) Weight 77.8 kg (04/13/22 9:39 AM) 79.0 kg (10/08/21 9:54 AM) Pulse Rate [55-90 bpm] 87 bpm (04/13/22 9:39 AM) 89 bpm (10/08/21 9:54 AM) Body Mass Index [18.5-24.99] 25.7 *H* (04/13/22 9:39 AM) 26.09 *H* (10/08/21 9:54 AM) Blood Pressure [90-138/55-84 mm Hg] 166/ 95mm Hg *H* (04/13/22 9:39 AM) 167/100mm Hg *H* (10/08/21 9:54 AM) Temperature [96.8-100.4 DegF] 98.2 DegF (04/13/22 9:39 AM) 95.1 DegF *L* (10/08/21 9:54 AM) Blood pressure sites Arm, right (04/13/22 9:39 AM) Arm, right (10/08/21 9:54 AM) Temperature Route Oral (04/13/22 9:39 AM) Temporal (10/08/21 9:54 AM) Dry Weight 77.8 kg (04/13/22 9:39 AM) 79.0 kg (10/08/21 9:54 AM) Weight Obtained Via Standing scale (04/13/22 9:39 AM) Standing scale (10/08/21 9:54 AM) Dry Weight Obtained Via Pediatric scale (04/13/22 9:39 AM) Standing scale (10/08/21 9:54 AM) Social History Social History Type Response Smoking Status Current every day avelino elena; Type: Cigarettes; Tobacco use times per day: 7 cigarettes/day; entered on: 01/02/16 Sex Male Note * Kelly Davis: PERFORM, SIGN, VERIFY Event Display: Patient Education/Instruction Authored Date: [id number] [facility] *Heme/Onc Adult Clinical Summary Name GONZALEZ BRICEÑO Age 71 Years 1950 PCP Ryna Saha MD , Serena Escudero PCP Visit Date 09/30/2021 10:24:00 Additional Instructions: Scheduled Appointments?? Future Appointments ?No Future Appointments Scheduled Follow-Up Instructions ?? With: Address: When: Dorie Kendrick [address] [place] [address] [place] [address] [facility] (7) 08/10/2022 10:15 AM With: Address: When: Dorie Kendrick 04/08/2022 10:00 AM Diagnosis Medications: Please continue your medications until [...] orders Vital Signs Height 174 cm Weight 77.8 kg BMI 25.7 Blood Pressure 166 mm Hg/95 mm Hg Temperature 98.2 DegF Pulse Rate 87 bpm Respiratory Rate 02 Sat Mode of Delivery / You can now view a summary of your hospital visit from the comfort of your home through a free online portal called Dooch[employer]. Do[employer] is a website that allows you to securely view your medical information including discharge summary, medications and follow-up visits. ??You can alsosend a secure electronic message to your doctor???s office to request appointments, renew medications or just ask a question. You can enroll at [email or web address] or register during your next office [...] primary care provider, you may find a [facility] provider by calling [facility] at [phone]. For information about the plan of care including goals and instructions for your diagnosis, please see the patient education orders section of this document. Patient Education Materials?? The content of this educational material or handout may have been modified, supplemented, or adapted from its original content and format to support your individualized medical care. * Angie Pinto [place]: PERFORM, SIGN, VERIFY Event Display: Patient Education/Instruction Authored Date: [id number] [facility] *Heme/Onc Adult Clinical Summary Name GONZALEZ BRICEÑO Age 71 Years 1950 PCP Ryan Saha MD , Serena Escudero PCP Visit Date 09/30/2021 10:24:00 Additional Instructions: Scheduled Appointments?? Future Appointments ?No Future Appointments Scheduled Follow-Up Instructions ?? With: Address: When: Dorie Kendrick 04/08/2022 10:00 AM Diagnosis Medications: Please continue your medications until [...] orders Vital Signs Height 174 cm Weight 79.0 kg BMI 26.09 Blood Pressure 167 mm Hg/100 mm Hg Temperature 95.1 DegF Pulse Rate 89 bpm Respiratory Rate 02 Sat Mode of Delivery / You can now view a summary of your hospital visit from the comfort of your home through a free online portal called [employer]. [employer] is a website that allows you to securely view your medical information including discharge summary, medications and follow-up visits. ??You can alsosend a secure electronic message to your doctor???s office to request appointments, renew medications or just ask a question. You can enroll at [email or web address] or register during your next office [...] primary care provider, you may find a [facility] provider by calling [facility] at [phone]. For information about the plan of care [...] Care Team Personnel Name: Shruthi Frost Position: [facility] Onco RN Member Role: Primary Care Nurse Name: Vivian Kerr RN Position: S RN Member Role: Primary Care Nurse Name: Bonilla Montiel NP Position: Reference Physician Member Role: PCP Address: Address: [address] [place] [id number] Name: Svitlana Ogden RN Position: [facility] Onco RN Member Role: Primary Care Nurse Name: Norma Muro RN Position: [facility] Onco RN Member Role: Primary Care Nurse Name: Lito Frazier RN Position: S RN Member Role: Primary Care Nurse Name: Alesia Frye Position: [facility] Onco RN Member Role: Primary Care Nurse Care Team Related Persons Name: NURIA HANLEY Address: home [address] [place] [address] Name: PANKAJ BRICEÑO Address: home [address] [place] [address] Name: GUSTAVO BRICEÑO Address: [place] [address] Name: BETHEL CONTRERAS Address: home [address] [place] [address]
--- OUTSIDE RECORDS SUMMARY | 2023-05-18 11:01 | XMS_ITS | Continuity of Care Document ---
Author Name Unknown Organization [facility] ancer Care Address [address] [place] [address]- Care Team Providers Care Composition Floor Layer Name Role Phone Dinesh STAPLES, Bonilla Watknis Primary Care Physician Encounter [facility] Date(s): 03/16/23 - 04/15/23 [facility] Care [address] [place] [address]- Allergies, Adverse Reactions, Alerts Substance Reaction Severity [...] 0 Refills, Soft Stop, 06/04/20 11:44:00 EDT, [facility] #[id number], 174, cm, 06/02/20 19:32:00 EDT, Height, 79.09, kg, 06/02/20 13:48:... Start Date: 06/04/20 Status: Ordered oxyCODONE 5 mg oral tablet 5 mg, 1, tablet, By Mouth, Every 6 hours, DX: T cell lymphoma, # 30 tablet, Refills 0, Tot. Refills0, Maintenance, 02/02/21 16:54:00 EDT, Route to Pharmacy Electronically, [facility] #[id number], Partial fill upon patient request, 174, cm, [...] Physician Member Role: PCP Address: Address: [address] [place], [place] [facility] Name: Svitlana Ogden RN Position: S Onco RN Member Role: Primary Care Nurse Name: Norma Muro RN Position: S Onco RN Member Role: Primary Care Nurse Name: Lito Frazier RN Position: S RN Member Role: Primary Care Nurse Name: Alesia Frye Position: [facility] Onco RN Member Role: Primary Care Nurse Care Team Related Persons Name: NURIA HANLEY Address: home [address] [place] [address] Name: PANKAJ BRICEÑO Address: home [address] [place] [address] Name: GUSTAVO BRICEÑO Address: home [place], [place] Name: BETHEL CONTRERAS Address: home [address] [place] [address]
--- OUTSIDE RECORDS SUMMARY | 2023-05-18 11:01 | XMS_ITS | Continuity of Care Document ---
Author Name Unknown Organization [facility] ancer Care Address [address] [place] [address]- Care Team Providers Care Derrick Car Operator Name Role Phone Ryan Saha MD, Serena Escudero Primary Care Physician [place] [facility] [place] [facility] [id number] Date(s): 09/30/21 - 10/30/21 [facility] Care [address] [place] [id number] Attending Physician: Margy Méndez Admitting Physician: AdmtrMargy [...] 0 Refills, Soft Stop, 06/04/20 11:44:00 EDT, [facility] #[id number], 174, cm, 06/02/20 19:32:00 EDT, Height, 79.09, kg, 06/02/20 13:48:... Start Date: 06/04/20 Status: Ordered oxyCODONE 5 mg oral tablet 5 mg, 1, tablet, By Mouth, Every 6 hours, DX: T cell lymphoma, # 30 tablet, Refills 0, Tot. Refills0, Maintenance, 02/02/21 16:54:00 EDT, [facility][id number], Partial fill upon patient request, 174, cm, [...]
--- OUTSIDE RECORDS SUMMARY | 2023-05-18 11:01 | XMS_ITS | Continuity of Care Document ---
Author Name Unknown Organization [facility] Address [address] [place] [id number]- Care Team Providers Care Cone Tender Name Role Phone Dinesh STAPLES, Bonilla Watkins Primary Care Physician [phone] Encounter [facility] Date(s): 10/15/20 - 11/14/20 [facility] Care [address] [place] [id number] Allergies, Adverse Reactions, Alerts Substance Reaction Severity Status morphine Active Motrin Active Medications allopurinol 300 mg oral tablet 300 mg, 1, tablet, By Mouth, Daily, to prevent tumor lysis syndrome, # 30 tablet, Refills 0, Tot. Refills 0, Maintenance, 06/09/20 12:52:00 EDT, Route to Pharmacy Electronically, [facility]#[id number], 174, cm, 06/05/20 10:38:00 EDT, Height, 80.... [...] 0 Refills, Maintenance, 06/05/20 13:17:00 EDT, Tablet, [facility] #[id number], 174, cm, 06/05/20 10:38:00 EDT, Height, 80.7, [...] 0 Refills, Soft Stop, 06/04/20 11:44:00 EDT, [facility] #[id number], 174, cm, 06/02/20 19:32:00 EDT, Height, 79.09, kg, 06/02/20 13:48:... Start Date: 06/04/20 Status: Ordered olanzapine 2.5 mg oral tablet 2.5 mg, 1, tablet, By Mouth, Daily, fill this script instead of the 5mg qday script I sent earlier., # 30 tablet, Refills 2, Tot. Refills 2, Maintenance, 08/18/20 10:27:00 EST, Route to Pharmacy Electronically, [facility] #[id number], Partial christiano... Start Date: 08/18/20 Status: Ordered olanzapine 5 mg oral tablet 5 mg, 1, tablet, By Mouth, Daily, # 30 tablet, Refills 1, Tot. Refills 1, Maintenance, 08/18/20 10:26:00 EST, Route to Pharmacy Electronically, [facility] #[id number], Partial fill upon patient request if the prescription is for a schedule II opi... Start Date: 08/18/20 Status: Ordered omeprazole 20 mg oral enteric coated capsule 1 capsule, By Mouth, Daily, # 90 capsule, 0 Refills, Maintenance, 09/05/20 8:45:00 EST, [facility] #[id number], 174, cm, 08/28/20 15:23:00 EST, Height, 73.8, kg, 08/27/20 10:18:00 EST, Dry Weight Start Date: 09/05/20 Status: Ordered oxyCODONE 5 mg oral tablet 5 mg, 1, tablet, By Mouth, Every 6 hours, DX: T cell lymphoma, # 30 tablet, Refills 0, Tot. Refills0, Maintenance, 09/16/20 9:18:00 EST, Route to Pharmacy Electronically, [facility] #[id number], Partial fill upon patient request, 174, cm, .. Start Date: 09/16/20 Status: Ordered predniSONE 50 mg oral tablet See Instructions, 2 tabs (100mg) By Mouth Daily for 5 days with each chemo treatment, start day 1, as directed, with food or milk, # 40 tablet, 3 Refills, Maintenance, 07/18/20 15:51:00 EST, [facility] #[id number], 174, cm, 07/18/20 14:57:00 ES... Start Date: 07/18/20 Status: Ordered prochlorperazine 10 mg oral tablet 1 tablet, By Mouth, Every 6 hours, PRN NEEDED FOR NAUSEA OR VOMITING, MAY CAUSE DROWSINESS, # 30tablet, 0 Refills, Acute, 07/07/20 8:24:00 EST, [facility] #[id number], 174, cm, 07/03/20 17:24:00 EST, Height, 81.4, kg, 06/26/20 14:07:00 EDT D... Start Date: 07/07/20 Status: Ordered Zofran 8 mg oral tablet 1 tablet = 8 mg, By Mouth, Every 8 hours, PRN as needed for nausea/vomiting, # 30 tablet, 1 Refills, Maintenance, 08/28/20 15:19:00 EST, [facility] #[id number], Partial fill upon patient requestif the prescription [...]
--- OUTSIDE RECORDS SUMMARY | 2023-05-18 11:01 | XMS_ITS | Continuity of Care Document ---
Author Name Unknown Organization [facility] ter Address [address] [place] [address]- Care Team Providers Care Coil Placer Name Role Phone Ryan Saha MD, Natalia Primary Care Physician [phone] Encounter [facility] Date(s): 07/20/21 - 07/20/[address] [address] Discharge Disposition: A-D/C Home Attending Physician: Dorie [...] 0 Refills, Soft Stop, 06/04/20 11:44:00 EDT, [facility] #[id number], 174, cm, 06/02/20 19:32:00 EDT, Height, 79.09, kg, 06/02/20 13:48:... Start Date: 06/04/20 Status: Ordered oxyCODONE 5 mg oral tablet 5 mg, 1, tablet, By Mouth, Every 6 hours, DX: T cell lymphoma, # 30 tablet, Refills 0, Tot. Refills0, Maintenance, 02/02/21 16:54:00 EDT, Route to Pharmacy Electronically, [facility] #[id number], Partial fill upon patient request, 174, cm, [...] oldest [Reference Range]: 1 Height 174 cm (07/20/21 8:15 AM) Weight 78 kg (07/20/21 8:15 AM) Oxygen Saturation [94-100 %] 97 % (07/20/21 7:49 AM) Pulse Rate [55-90 bpm] 80 bpm (07/20/21 7:49 AM) Blood Pressure [90-138/55-84 mm Hg] 141/ 80mm Hg *H* (07/20/21 7:49 AM) Respiratory Rate [16-30 br/min] 18 br/mi n (07/20/21 7:49 AM) Temperature [96.8-100.4 DegF] 97.6 DegF (07/20/21 7:49 AM) Mode of Delivery (Oxygen) Room air (07/20/21 7:49 AM) Blood pressure sites Arm, left (07/20/21 7:49 AM) Temperature Route Oral (07/20/21 7:49 AM) Dry Weight 78 kg (07/20/21 8:15 AM) Social History Social History Type Response Smoking Status Current every day avelino parker; Type: Cigarettes; Tobacco use times per day: 7 cigarettes/day; entered on: 01/02/16 Sex Male
--- OUTSIDE RECORDS SUMMARY | 2023-05-18 11:02 | XMS_ITS | Continuity of Care Document ---
Author Name Unknown Organization [facility] Address [address] [place] [phone]- Care Team Providers Care Director Environmental Name Role Phone Dinesh STAPLES, Bonilla Watkins Primary Care Physician Encounter [facility] Date(s): 06/03/20 - 07/03/20 [facility] [address] [place] [address]- Allergies, Adverse Reactions, Alerts Substance Reaction Severity Status morphine Active Motrin Active Medications allopurinol 300 mg oral tablet 300 mg, 1, tablet, By Mouth, Daily, to prevent tumor lysis syndrome, # 30 tablet, Refills 0, Tot. Refills 0, Maintenance, 06/09/20 12:52:00 EDT, Route to Pharmacy Electronically, [facility]#[id number], 174, cm, 06/05/20 10:38:00 EDT, Height, 80.... [...] 0 Refills, Maintenance, 06/05/20 13:17:00 EDT, Tablet, [facility] #[id number], 174, cm, 06/05/20 10:38:00 EDT, Height, 80.7, kg, 06/05/20 10:38:00 EDT, Dry Weight Start Date: 06/05/20 Status: Ordered Entresto 24 mg-26 mg oral tablet 3 tablet, By Mouth, 2 times a day, # 180 tablet, 0 Refills, Maintenance, 05/20/20 14:09:00 EDT, Tablet Start Date: 05/20/20 Status: Ordered lidocaine-prilocaine 2.5%-2.5% topical cream See Instructions, apply small dollop to [facility] 1 hr prior to appt and cover with plastic, #30 Gm, 1 Refills, Maintenance, 06/10/20 11:36:00 EDT, Cream, [facility] #[id number], apply small dollop to [facility] 1 hr prior to appt and c... Start Date: 06/10/20 Status: Ordered LORazepam 1 mg oral tablet 1 tablet = 1 mg, By Mouth, Once, take 30 to 60 mins prior to MRI for claustrophophia and anxiety., # 1 tablet, 0 Refills, Soft Stop, 06/04/20 11:44:00 EDT, [facility] #[id number], 174, cm, 06/02/20 19:32:00 EDT, Height, 79.09, kg, 06/02/20 13:48:... Start Date: 06/04/20 Status: Ordered omeprazole 20 mg oral enteric coated capsule 1 capsule = 20 mg, By Mouth, Daily, Lithuanian instructions please., # 90 capsule, 0 Refills, Maintenance, 06/10/20 11:39:00 EDT, EC Capsule, [facility] #[id number], 174, cm, 06/10/20 10:03:00 EDT,Height, 80.9, kg, 06/10/20 10:03:00 EDT, Dry Weight Start Date: 06/10/20 Status: Ordered oxyCODONE 5 mg oral tablet 5 mg, 1, tablet, By Mouth, Every 6 hours, DX: T cell lymphoma, # 30 tablet, Refills 0, Tot. Refills0, Maintenance, 06/26/20 14:47:00 EDT, Route to Pharmacy Electronically, [facility] #[id number], Partial fill upon patient request, 174, cm, 06/26... Start Date: 06/26/20 Status: Ordered predniSONE 50 mg oral tablet See Instructions, 2 tabs (100mg) By Mouth Daily for 5 days with each chemo treatment, start day 1, as directed, with food or milk, # 10 tablet, 5 Refills, Maintenance, 06/10/20 11:32:00 EDT, [facility] #[id number], 174, cm, 06/10/20 10:03:00 ED... Start Date: 06/10/20 Status: Ordered prochlorperazine 10 mg oral tablet 1 tablet, By Mouth, Every 6 hours, PRN NEEDED FOR NAUSEA OR VOMITING, MAY CAUSE DROWSINESS, # 30tablet, 0 Refills, Acute, 06/30/20 8:59:00 EST, [facility] #[id number], 174, cm, 06/26/20 14:07:00 EDT, Height, 81.4, kg, 06/26/20 14:07:00 EDT, D... Start Date: 06/30/20 Status: Ordered Senna 8.6 mg oral tablet 17.2 mg, 2, tablet, By Mouth, Daily at bedtime, PRN, for 30 days, # 60 tablet, Refills 0, Tot. Refills 0, Acute, for constipation, 07/05/20 13:18:00 EST, 06/05/20 13:18:00 EDT, Route to Pharmacy Electronically, [facility] #[id number] Tablet, 174,... Start Date: 06/05/20 Stop Date: [...]
--- OUTSIDE RECORDS SUMMARY | 2023-05-18 11:02 | XMS_ITS | Continuity of Care Document ---
Author Name Unknown Organization [facility] Address [address] [place] [address]- Care Team Providers Care Regulator Assembler Name Role Phone Dinesh STAPLES, Bonilla Watkins Primary Care Physician [id number]20 - 03/03/[facility] [address] [place] [address]- Discharge Disposition: A-D/C Home Attending Physician: Dorie Kendrick MD Admitting Physician: Dorie Kendrick MD Referring Physician: Bonilla Montiel NP Allergies, Adverse Reactions, Alerts Substance Reaction Severity Status morphine Active Motrin Active Medications Acetaminophen Tablet 650 mg, Tablet, By Mouth, Chemo To Be Scheduled, Give 30 minutes before Brentuximab infusion, Routine, 10/14/20 18:00:00 EST Start Date: 10/14/20 Stop Date: 10/15/20 Status: Completed Acetaminophen Tablet 650 mg, Tablet, By Mouth, Chemo To Be Scheduled, Give 30 minutes before Brentuximab infusion, Routine, 08/26/20 17:00:00 EST Start Date: 08/26/20 Stop Date: 08/27/20 Status: Completed carvedilol 25 mg oral tablet 25 mg, [...] 0 Refills, Soft Stop, 06/04/20 11:44:00 EDT, [facility] #[id number], 174, cm, 06/02/20 19:32:00 EDT, Height, 79.09, kg, 06/02/20 13:48:... Start Date: 06/04/20 Status: Ordered oxyCODONE 5 mg oral tablet 5 mg, 1, tablet, By Mouth, Every 6 hours, DX: T cell lymphoma, # 30 tablet, Refills 0, Tot. Refills0, Maintenance, 02/02/21 16:54:00 EDT, Route to Pharmacy Electronically, [facility] #[id number], Partial fill upon patient request, 174, cm, [...] Range]: 1 2 3 Height 174 cm (01/01/21 10:19 AM) 174 cm (10/30/20 11:20 AM) 174 cm (10/16/20 3:25 PM) Weight 74.4 kg (01/01/21: AM) 70.1 kg (10/30/20 11: AM) 72.1 kg (10/14/20 10:02 AM) Oxygen Saturation [94-100 %] 98 % (10/30/20 11: AM) 100 % (10/15/20 11:00 AM) 99 % (10/03/20: AM) Pulse Rate [55-90 bpm] 80 bpm (01/01/21 10:19 AM) 103 bpm *H* (10/30/20 11:20 AM) 100 bpm *H* (10/15/20 11:00 AM) Body Mass Index [18.5-24.99] 24.57 (01/01/21 10:19 AM) 23.15 (10/30/20 11:20 AM) 23.81 (10/14/20 10:02 AM) Blood Pressure [90-138/55-84 mm Hg] 142/88mm Hg *H* (01/01/21 10:19 AM) 108/70mm Hg (10/30/20 11:20 AM) 127/71mm Hg (10/15/20 11:00 AM) Respiratory Rate [16-30 br/min] 18 br/min (10/15/20 12:31 PM) 16 br/min (08/27/20 12:17 PM) 20 br/min (07/24/20 3:57 PM) Temperature [96.8-100.4 DegF] 97.1 DegF (01/01/21 10: AM) 96.8 DegF (10/30/20 11:20 AM) 96.3 DegF *L* (10/15/20 11:00 AM) Mode of Delivery (Oxygen) Room air (10/15/20 11:00 AM) Room air (10/03/20 10:11 AM) Room air (10/03/20 9:27 AM) Blood pressure sites Arm, left (01/01/21 10:19 AM) Arm, left (10/30/20 11:20 AM) Arm, right (10/15/20 11:00 AM) Temperature Route Temporal (01/01/21 10:19 AM) Temporal (10/30/20 11:20 AM) Temporal (10/16/20 3:25 PM) Dry Weight 74.4 kg (01/01/21 10:19 AM) 70.1 kg (10/30/20 11:20 AM) 72.1 kg (10/14/20 10:02 AM) Weight Obtained Via Standing scale (01/01/21 10:19 AM) Standing scale (10/30/20 11:20 AM) Standing scale (10/14/20 10:02 AM) Dry Weight Obtained Via Standing scale (01/01/21 10:19 AM) Standing scale (10/30/20 11:20 AM) Standing scale (10/14/20 10:02 AM) Social History Social History Type Response Smoking Status Current every day avelino parker; Type: Cigarettes; Tobacco use times per day: 7 cigarettes/day; entered on: 01/02/16 Sex Male
--- OUTSIDE RECORDS SUMMARY | 2023-05-18 11:02 | XMS_ITS | Continuity of Care Document ---
Author Name Unknown Organization [facility] Address [address] [place] [address]- Care Team Providers Care Warp Trucker Name Role Phone Dinesh STAPLES, Bonilla Watkins Primary Care Physician [phone] Encounter [facility] Date(s): 05/20/20 - 05/20/[address] [address]- [facility] Discharge Disposition: A-D/C Home Attending Physician: Eyal [...] EDT, Tablet Start Date: 05/20/20 Status: Ordered Problem List Condition Effective Dates Status Health Status Inform ant Anxiety(Confirmed) Active History of arthritis(Confirmed) Active History of cocaine use(Confirmed) Active History of heroin use(Confirmed) Active S/P lumbar spine operation(Confirmed) Active HIV disease(Confirmed) Active HTN (hypertension)(Confirmed) Active Low back pain(Confirmed) Active Lumbar postlaminectomy syndrome(Confirmed) Active Nicotine use disorder(Confirmed) Active Vital Signs Most recent to oldest [Reference Range]: 1 2 3 Height 175 cm (05/20/20 1:44 PM) Weight 78 kg (05/20/20 1:44 PM) Oxygen Saturation [94-100 %] 95 % (05/20/20 5:15 PM) 94 % (05/20/20 5:00 PM) 94 % (05/20/20 4:45 PM) Pulse Rate [55-90 bpm] 98 bpm *H* (05/20/20 1:44 PM) Body Mass Index [18.5-24.99] 25.47 *H* (05/20/20 1:44 PM) Blood Pressure [90-138/55-84 mm Hg] 164/90mm Hg *H* (05/20/20 5:15 PM) 166/91mm Hg *H* (05/20/20 5:00 PM) 178/83mm Hg *H* (05/20/20 4:45 PM) Respiratory Rate [16-30 br/min] 21 br/min (05/20/20 5:15 PM) 18 br/min (05/20/20 5:00 PM) 16 br/min (05/20/20 4:46 PM) Temperature [96.8-100.4 DegF] 97.7 DegF (05/20/20 4:20 PM) 97.9 DegF (05/20/20 1:44 PM) Liters per Minute 8 L/min (05/20/20 4:30 PM) 8 L/min (05/20/20 4:20 PM) Mode of Delivery (Oxygen) Room air (05/20/20 5:15 PM) Room air (05/20/20 5:00 PM) Room air (05/20/20 4:45 PM) Blood pressure sites Arm, left (05/20/20 4:45 PM) Arm, left (05/20/20 4:30 PM) Arm, left (05/20/20 4:20 PM) Temperature Route Temporal (05/20/20 4:20 PM) Temporal (05/20/20 1:44 PM) Dry Weight 78 kg (05/20/20 1:44 PM) Weight Obtained Via Patient/family state d (05/20/20 1:44 PM) Dry Weight Obtained Via Patient/family s tated (05/20/20 1:44 PM) Social History Social History Type Response Smoking Status Current every day avelino parker; Type: Cigarettes; Tobacco use times per day: 7 cigarettes/day; entered on: 01/02/16 Sex
--- OUTSIDE RECORDS SUMMARY | 2023-05-18 11:02 | XMS_ITS | Continuity of Care Document ---
Author Name Unknown Organization [facility] Care Address [address] [place] [address]- Care Team Providers Care Aerospace Mechanic Name Role Phone Ryan Saha MD, Serena Escudero Primary Care Physician [id number] Date(s[facility] - 08/08/21 [facility] [address] [place] [address]- Allergies, Adverse Reactions, Alerts Substance Reaction Severity [...] 0 Refills, Soft Stop, 06/04/20 11:44:00 EDT, [facility] #[id number], 174, cm, 06/02/20 19:32:00 EDT, Height, 79.09, kg, 06/02/20 13:48:... Start Date: 06/04/20 Status: Ordered oxyCODONE 5 mg oral tablet 5 mg, 1, tablet, By Mouth, Every 6 hours, DX: T cell lymphoma, # 30 tablet, Refills 0, Tot. Refills0, Maintenance, 02/02/21 16:54:00 EDT, Route to Pharmacy Electronically, [facility] #[id number], Partial fill upon patient request, 174, cm, [...]
--- OUTSIDE RECORDS SUMMARY | 2023-05-18 11:02 | XMS_ITS | Continuity of Care Document ---
Author Name Unknown Organization [facility] Address [address] [place] [address]- Care Team Providers Care Software Quality Tester Name Role Phone Ryan Saha MD, Serena Escudero Primary Care Physician [phone] [id number] Date(s[facility] 04/13/22 - 05/13/22 [facility] [address] [place] [address]- Allergies, Adverse Reactions, Alerts Substance Reaction Severity [...] 0 Refills, Soft Stop, 06/04/20 11:44:00 EDT, [facility] #[id number], 174, cm, 06/02/20 19:32:00 EDT, Height, 79.09, kg, 06/02/20 13:48:... Start Date: 06/04/20 Status: Ordered oxyCODONE 5 mg oral tablet 5 mg, 1, tablet, By Mouth, Every 6 hours, DX: T cell lymphoma, # 30 tablet, Refills 0, Tot. Refills0, Maintenance, 02/02/21 16:54:00 EDT, Route to Pharmacy Electronically, [facility] #[id number], Partial fill upon patient request, 174, cm, [...] 7 cigarettes/day; entered on: 01/02/16 Sex Male Care Team Personnel Name: Ryan Saha MD , Serena Escudero Address: [address] [place] [address]
--- OUTSIDE RECORDS SUMMARY | 2023-05-18 11:02 | XMS_ITS | Continuity of Care Document ---
Author Name Unknown Organization [facility] Address [address] [place] [address]- Care Team Providers Care Med Aide Name Role Phone Dinesh STAPLES, Bonilla Watkins Primary Care Physician [id number] Date(s[facility] 03/23/21 - 06/02/21 [facility] [address] [place] [address]- Discharge Disposition: A-D/C Home Attending Physician: Dorie [...] 0 Refills, Soft Stop, 06/04/20 11:44:00 EDT, [facility] #[id number], 174, cm, 06/02/20 19:32:00 EDT, Height, 79.09, kg, 06/02/20 13:48:... Start Date: 06/04/20 Status: Ordered oxyCODONE 5 mg oral tablet 5 mg, 1, tablet, By Mouth, Every 6 hours, DX: T cell lymphoma, # 30 tablet, Refills 0, Tot. Refills0, Maintenance, 02/02/21 16:54:00 EDT, Route to Pharmacy Electronically, [facility] #[id number], Partial fill upon patient request, 174, cm, [...] oldest [Reference Range]: 1 Height 174 cm (04/02/21 10:27 AM) Weight 77.7 kg (04/02/21 10:27 AM) Pulse Rate [55-90 bpm] 86 bpm (04/02/21 10:27 AM) Body Mass Index [18.5-24.99] 25.66 *H* (04/02/21 10:27 AM) Blood Pressure [90-138/55-84 mm Hg] 146/ 99mm Hg *H* (04/02/21 10:27 AM) Temperature [96.8-100.4 DegF] 86.9 DegF *L* (04/02/21 10:27 AM) Blood pressure sites Arm, left (04/02/21 10:27 AM) Dry Weight 77.7 kg (04/02/21 10:27 AM) Weight Obtained Via Standing scale (04/02/21 10:27 AM) Dry Weight Obtained Via Standing scale (04/02/21 10:27 AM) Social History Social History Type Response Smoking Status Current every day avelino parker; Type: Cigarettes; Tobacco use times per day: 7 cigarettes/day; entered on: 01/02/16 Sex Male
--- OUTSIDE RECORDS SUMMARY | 2023-05-18 11:02 | XMS_ITS | Continuity of Care Document ---
Author Name Unknown Organization [facility] Address [address] [place] [address]- Care Team Providers Care Servicenow Administrator Name Role Phone Ryan Saha MD, Natalia Primary Care Physician [facility] [id number] Date(s): 06/03/21 - 09/08/21 [facility] [address] [place] [id number]- Discharge Disposition: A-D/C Home Attending Physician: Dorie [...] 0 Refills, Soft Stop, 06/04/20 11:44:00 EDT, [facility] #[id number], 174, cm, 06/02/20 19:32:00 EDT, Height, 79.09, kg, 06/02/20 13:48:... Start Date: 06/04/20 Status: Ordered oxyCODONE 5 mg oral tablet 5 mg, 1, tablet, By Mouth, Every 6 hours, DX: T cell lymphoma, # 30 tablet, Refills 0, Tot. Refills0, Maintenance, 02/02/21 16:54:00 EDT, Route to Pharmacy Electronically, [facility] #[id number], Partial fill upon patient request, 174, cm, [...] [Reference Range]: 1 2 Height 174 cm (07/09/21 9:55 AM) 174 cm (07/06/21 10:12 AM) Weight 79.0 kg (07/09/21 9:55 AM) Pulse Rate [55-90 bpm] 85 bpm (07/09/21 9:55 AM) Body Mass Index [18.5-24.99] 26.09 *H* (07/09/21 9:55 AM) Blood Pressure [90-138/55-84 mm Hg] 122/ 79mm Hg (07/09/21 9:55 AM) Temperature [96.8-100.4 DegF] 96.9 DegF (07/09/21 9:55 AM) Blood pressure sites Arm, left (07/09/21 9:55 AM) Temperature Route Temporal (07/09/21 9:55 AM) Temporal (07/06/21 10:12 AM) Dry Weight 79.0 kg (07/09/21 9:55 AM) Weight Obtained Via Standing scale (07/09/21 9:55 AM) Dry Weight Obtained Via Standing scale (07/09/21 9:55 AM) Social History Social History Type Response Smoking Status Current every day avelino parker; Type: Cigarettes; Tobacco use times per day: 7 cigarettes/day; entered on: 01/02/16 Sex Male
--- OUTSIDE RECORDS SUMMARY | 2023-05-18 11:02 | XMS_ITS | Continuity of Care Document ---
Author Name Unknown Organization [facility] ter Address [address] [place] [id number]- Care Team Providers Care Child Development Director Name Role Phone Dinesh STAPLES, Bonilla Watkins Primary Care Physician Encounter [facility] Date(s): 09/16/20 - 10/20/[address] [phone]- Attending Physician: Dorie Kendrick MD Admitting Physician: Dorie Kendrick MD Referring Physician: Dorie Kendrick MD Allergies, Adverse Reactions, Alerts Substance Reaction Severity Status morphine Active Motrin Active Medications allopurinol 300 mg oral tablet 300 mg, 1, tablet, By Mouth, Daily, to prevent tumor lysis syndrome, # 30 tablet, Refills 0, Tot. Refills 0, Maintenance, 06/09/20 12:52:00 EDT, Route to Pharmacy Electronically, [facility]#[id number], 174, cm, 06/05/20 10:38:00 EDT, Height, 80.... [...] Acute 10/25/20 8:00:00 EST, 10/14/20 13:56:00 EST, [facility] #[id number], Partial fill upon patient request if the prescription is for a schedule II opioid drug., 174, cm, 10/14... Start Date: 10/14/20 Stop Date: 10/25/20 Status: Ordered docusate sodium 100 mg oral tablet 2 tablet = 200 mg, By Mouth, Daily, PRN for constipation, # 60 tablet, 0 Refills, Maintenance, 06/05/20 13:17:00 EDT, Tablet, [facility] #[id number], 174, cm, 06/05/20 10:38:00 EDT, Height, 80.7, [...] 0 Refills, Soft Stop, 06/04/20 11:44:00 EDT, [facility] #[id number], 174, cm, 06/02/20 19:32:00 EDT, Height, 79.09, kg, 06/02/20 13:48:... Start Date: 06/04/20 Status: Ordered olanzapine 2.5 mg oral tablet 2.5 mg, 1, tablet, By Mouth, Daily, fill this script instead of the 5mg qday script I sent earlier., # 30 tablet, Refills 2, Tot. Refills 2, Maintenance, 08/18/20 10:27:00 EST, Route to Pharmacy Electronically, [facility] #[id number], Partial christiano... Start Date: 08/18/20 Status: Ordered olanzapine 5 mg oral tablet 5 mg, 1, tablet, By Mouth, Daily, # 30 tablet, Refills 1, Tot. Refills 1, Maintenance, 08/18/20 10:26:00 EST, Route to Pharmacy Electronically, [facility] #[id number], Partial fill upon patient request if the prescription is for a schedule II opi... Start Date: 08/18/20 Status: Ordered omeprazole 20 mg oral enteric coated capsule 1 capsule, By Mouth, Daily, # 90 capsule, 0 Refills, Maintenance, 09/05/20 8:45:00 EST, [facility] #[id number], 174, cm, 08/28/20 15:23:00 EST, Height, 73.8, kg, 08/27/20 10:18:00 EST, Dry Weight Start Date: 09/05/20 Status: Ordered oxyCODONE 10 mg oral tablet 1 tablet = 10 mg, By Mouth, Every 6 hours, PRN as needed for pain, for 7 days, # 28 tablet, 0 Refills, Acute 10/22/20 12:27:00 EST, 10/15/20 12:27:00 EST, Tablet, [facility] #[id number], Partialfill upon patient request if the prescription is fo... Start Date: 10/15/20 Stop Date: 10/22/20 Status: Ordered oxyCODONE 5 mg oral tablet 5 mg, 1, tablet, By Mouth, Every 6 hours, DX: T cell lymphoma, # 30 tablet, Refills 0, Tot. Refills0, Maintenance, 09/16/20 9:18:00 EST, Route to Pharmacy Electronically, [facility] #[id number], Partial fill upon patient request, 174, cm, ... Start Date: 09/16/20 Status: Ordered predniSONE 50 mg oral tablet See Instructions, 2 tabs (100mg) By Mouth Daily for 5 days with each chemo treatment, start day 1, as directed, with food or milk, # 40 tablet, 3 Refills, Maintenance, 07/18/20 15:51:00 EST, [facility] #[id number], 174, cm, 07/18/20 14:57:00 ES... Start Date: 07/18/20 Status: Ordered prochlorperazine 10 mg oral tablet 1 tablet, By Mouth, Every 6 hours, PRN NEEDED FOR NAUSEA OR VOMITING, MAY CAUSE DROWSINESS, # 30tablet, 0 Refills, Acute, 07/07/20 8:24:00 EST, [facility] #[id number], 174, cm, 07/03/20 17:24:00 EST, Height, 81.4, kg, 06/26/20 14:07:00 EDTEleanor.. Start Date: 07/07/20 Status: Ordered Zofran 8 mg oral tablet 1 tablet = 8 mg, By Mouth, Every 8 hours, PRN as needed for nausea/vomiting, # 30 tablet, 1 Refills, Maintenance, 08/28/20 15:19:00 [facility], [facility] #[id number], Partial fill upon patient requestif the prescription [...]
--- OUTSIDE RECORDS SUMMARY | 2023-05-18 11:02 | XMS_ITS | Continuity of Care Document ---
Author Name Unknown Organization [facility] Address [address] [place] [id number]- Care Team Providers Care Fire Eater Name Role Phone Dinesh STAPLES, Bonilla Watkins Primary Care Physician Encounter [facility] [place] Date(s): 09/16/20 - 10/16/20 [facility] [address] [place] [id number] Allergies, Adverse Reactions, Alerts Substance Reaction Severity Status morphine Active Motrin Active Medications allopurinol 300 mg oral tablet 300 mg, 1, tablet, By Mouth, Daily, to prevent tumor lysis syndrome, # 30 tablet, Refills 0, Tot. Refills 0, Maintenance, 06/09/20 12:52:00 EDT, Route to Pharmacy Electronically, [facility]#[id number], 174, cm, 06/05/20 10:38:00 EDT, Height, 80.... [...] Acute 10/25/20 8:00:00 EST, 10/14/20 13:56:00 EST, [facility] #[id number], Partial fill upon patient request if the prescription is for a schedule II opioid drug., 174, cm, 10/14... Start Date: 10/14/20 Stop Date: 10/25/20 Status: Ordered docusate sodium 100 mg oral tablet 2 tablet = 200 mg, By Mouth, Daily, PRN for constipation, # 60 tablet, 0 Refills, Maintenance, 06/05/20 13:17:00 EDT, Tablet, [facility] #[id number], 174, cm, 06/05/20 10:38:00 EDT, Height, 80.7, [...] 0 Refills, Soft Stop, 06/04/20 11:44:00 EDT, [facility] #[id number], 174, cm, 06/02/20 19:32:00 EDT, Height, 79.09, kg, 06/02/20 13:48:... Start Date: 06/04/20 Status: Ordered olanzapine 2.5 mg oral tablet 2.5 mg, 1, tablet, By Mouth, Daily, fill this script instead of the 5mg qday script I sent earlier., # 30 tablet, Refills 2, Tot. Refills 2, Maintenance, 08/18/20 10:27:00 EST, Route to Pharmacy Electronically, [email or web address] #[id number], Partial christiano... Start Date: 08/18/20 Status: Ordered olanzapine 5 mg oral tablet 5 mg, 1, tablet, By Mouth, Daily, # 30 tablet, Refills 1, Tot. Refills 1, Maintenance, 08/18/20 10:26:00 EST, Route to Pharmacy Electronically, [email or web address] #[id number], Partial fill upon patient request if the prescription is for a schedule II opi... Start Date: 08/18/20 Status: Ordered omeprazole 20 mg oral enteric coated capsule 1 capsule, By Mouth, Daily, # 90 capsule, 0 Refills, Maintenance, 09/05/20 8:45:00 EST, [facility] #[id number], 174, cm, 08/28/20 15:23:00 EST, Height, 73.8, kg, 08/27/20 10:18:00 EST, Dry Weight Start Date: 09/05/20 Status: Ordered oxyCODONE 10 mg oral tablet 1 tablet = 10 mg, By Mouth, Every 6 hours, PRN as needed for pain, for 7 days, # 28 tablet, 0 Refills, Acute 10/22/20 12:27:00 EST, 10/15/20 12:27:00 EST, Tablet, [facility] #[id number], Partialfill upon patient request if the prescription is fo... Start Date: 10/15/20 Stop Date: 10/22/20 Status: Ordered oxyCODONE 5 mg oral tablet 5 mg, 1, tablet, By Mouth, Every 6 hours, DX: T cell lymphoma, # 30 tablet, Refills 0, Tot. Refills0, Maintenance, 09/16/20 9:18:00 EST, Route to Pharmacy Electronically, [facility] #[id number], Partial fill upon patient request, 174, cm, ... Start Date: 09/16/20 Status: Ordered predniSONE 50 mg oral tablet See Instructions, 2 tabs (100mg) By Mouth Daily for 5 days with each chemo treatment, start day 1, as directed, with food or milk, # 40 tablet, 3 Refills, Maintenance, 07/18/20 15:51:00 EST, [facility] #[id number], 174, cm, 07/18/20 14:57:00 ES... Start Date: 07/18/20 Status: Ordered prochlorperazine 10 mg oral tablet 1 tablet, By Mouth, Every 6 hours, PRN NEEDED FOR NAUSEA OR VOMITING, MAY CAUSE DROWSINESS, # 30tablet, 0 Refills, Acute, 07/07/20 8:24:00 EST, [facility] #[id number], 174, cm, 07/03/20 17:24:00 EST, Height, 81.4, kg, 06/26/20 14:07:00 EDTEleanor.. Start Date: 07/07/20 Status: Ordered Zofran 8 mg oral tablet 1 tablet = 8 mg, By Mouth, Every 8 hours, PRN as needed for nausea/vomiting, # 30 tablet, 1 Refills, Maintenance, 08/28/20 15:19:00 [facility] #[id number], Partial fill upon patient requestif the prescription [...]
--- NOTE | 2023-05-18 11:11 | MHC.OFFVIS ---
Intake Vital Signs 05/18/23 11:12 Height 5 ft 9 in Weight 180 lb BMI 26.6 BP 122/70 Pulse 80 Intake Visit Reasons: 6 month follow up hiv Vision Impaired Teacher Required: Yes Allergies morphine [MORPHINE] Allergy (Intermediate, Verified 05/18/23 11:12) RASH ibuprofen [From MOTRIN] Adverse Reaction (Intermediate, Verified 05/18/23 11:12) UPSET STOMACH, diarrhea HPI 6 month follow up hiv HPI Details He is here for HIV care. He has viral load 05/12 undetectable and CD4 count 278. He has no Hepatitis C. [facility] Medical History Smokers' cough Abdominal swelling Left shoulder pain Essential hypertension Failed back syndrome Rash Neck pain NICM (nonischemic cardiomyopathy) Hepatitis B antibody positive in blood Hepatitis B core antibody positive Hepatitis C antibody positive in blood Hypertension T-cell lymphoma HIV (human immunodeficiency virus infection) Surgical History History of spinal surgery Family History Father Lung cancer Mother Asthma Other Substance use disorder Social History Housing: Apartment Alcohol intake: former Patient Tobacco Use Status: Former Tobacco user Years Smoked: 56 e-Cigarette/Vaping Use: Never Used Second Hand Smoke Exposure: No service: No Current occupational status: unemployed and disabled Cognitive needs: No Hearing needs: No Vision needs: Yes Review of Systems Const All systems reviewed & are unremarkable except as noted in HPI and below Physical Exam Vital Signs: Last Vital Signs Pulse 80 05/18/23 11:12 BP 122/70 05/18/23 11:12 BMI result Body Mass Index 26.6 Const General: cooperative Orientation/consciousness: patient oriented x3 HEENT Head: Yes normal to inspection Mouth: Normal oral and palatal mucosa present Eyes General: appearance normal, both eyes and all related structures Pupils: Equal, round and reactive pupils present Resp Effort & Inspection: normal respiratory effort Cardio Rate: regular rate Rhythm: regular rhythm GI Palpation (GI): Soft to palpation and nontender General: Yes no CVA tenderness Back/Spine/Pelvis Back: no CVA tenderness Skin General skin exam: no rashes or lesions noted Neuro General: patient oriented x3 Cranial nerves: Yes CN's II-XII intact bilaterally and Yes Equal, round and reactive pupils present Extrem General: Yes normal to inspection Psych Appearance: grossly normal Assessment & Plan Assessment & Plan (1) HIV (human immunodeficiency virus infection): Comment: He is doing well. He takes Descovy and Tivicay. Code(s): B20 - Human immunodeficiency virus [HIV] disease Qualifiers: HIV symptom status: unspecified Qualified Code(s): B20 - Human immunodeficiency virus [HIV] disease Plan: Would continue Tivicay and Descovy. Recheck labs in six months and see. Coding Level of Care Code Est Pt Level 3 (46997) Diagnoses HIV infection, unspecified symptom status B20 HIV symptom status: unspecified
[2023-05-18 11:12] VITALS: BP 122/70; PULSE 80; BMI 26.6
== END 2023-05-18 11:33 | disposition home or self-care (01) ==
LOC: HO.HID 10:59
PROVIDERS: PCP Internal Medicine; Visit Provider Internal Medicine
DX: B20 Human immunodeficiency virus [HIV] disease (principal)
CPT/HCPCS: 99213

== ENCOUNTER → 2023-05-18 10:58 | Outpatient (BNVA) | payer OTHER, SELFPAY | PROVIDERS: PCP Internal Medicine; Visit Provider Internal Medicine | DX: B20 Human immunodeficiency virus [HIV] disease (principal) | CPT/HCPCS: 99212 ==

== ENCOUNTER 2023-10-31 14:33 | Outpatient (AMB) | payer OTHER, SELFPAY ==
[2023-10-31 14:34] VITALS: PULSE 84; O2SAT 95; BMI 28.5
--- NOTE | 2023-10-31 14:34 | A.OFFVIS_ITS ---
Intake Vital Signs 10/31/23 14:34 Height 5 ft 9 in Weight 193 lb BMI 28.5 Pulse 84 Pulse Oximetry (%) 95 Intake Visit Reasons: HIV follow up medication Program Attendant Required: Yes Program Attendant Name: Gustavo Roberts CMA Information Interpreted: clinical only Allergies morphine [MORPHINE] Allergy (Intermediate, Verified 10/31/23 14:49) RASH ibuprofen [From MOTRIN] Adverse Reaction (Intermediate, Verified 10/31/23 14:49) UPSET STOMACH, diarrhea HPI HIV follow up medication HPI Details He feels well and has no complaints. He has viral load undetectable and CD4 count 278. He takes Tivicay and Descovy [facility] Medical History Smokers' cough Abdominal swelling Left shoulder pain Essential hypertension Failed back syndrome Rash Neck pain NICM (nonischemic cardiomyopathy) Hepatitis B antibody positive in blood Hepatitis B core antibody positive Hepatitis C antibody positive in blood Hypertension T-cell lymphoma HIV (human immunodeficiency virus infection) Surgical History History of spinal surgery Family History Father Lung cancer Mother Asthma Other Substance use disorder Social History Housing: Apartment Alcohol intake: former Patient Tobacco Use Status: Former Tobacco user Years Smoked: 56 e-Cigarette/Vaping Use: Never Used Second Hand Smoke Exposure: No service: No Current occupational status: unemployed and disabled Cognitive needs: No Hearing needs: No Vision needs: Yes Review of Systems Const All systems reviewed & are unremarkable except as noted in HPI and below Physical Exam Vital Signs: Last Vital Signs Pulse 84 10/31/23 14:34 Pulse Ox 95 10/31/23 14:34 BMI result Body Mass Index 28.5 Const General: cooperative Orientation/consciousness: patient oriented x3 HEENT Head: Yes normal to inspection Mouth: Normal oral and palatal mucosa present Eyes General: appearance normal, both eyes and all related structures Pupils: Equal, round and reactive pupils present Resp Effort & Inspection: normal respiratory effort Cardio Rate: regular rate Rhythm: regular rhythm GI Palpation (GI): Soft to palpation and nontender General: Yes no CVA tenderness Back/Spine/Pelvis Back: no CVA tenderness Skin General skin exam: no rashes or lesions noted Neuro General: patient oriented x3 Cranial nerves: Yes CN's II-XII intact bilaterally and Yes Equal, round and reactive pupils present Extrem General: Yes normal to inspection Psych Appearance: grossly normal Assessment & Plan Assessment & Plan (1) HIV (human immunodeficiency virus infection): Comment: He is doing well. He takes Descovy and Tivicay. Code(s): B20 - Human immunodeficiency virus [HIV] disease Qualifiers: HIV symptom status: unspecified Qualified Code(s): B20 - Human immunodeficiency virus [HIV] disease Plan: Continue Tivicay and Descovy. Check CD4 count and viral load in December. See in January and renewals given. Orders: Orders HIV-1 RNA QN PCR Expanded 10 Weeks B20 - Human immunodeficiency virus [HIV] disease Lymphocyte Subset Panel 3 10 Weeks B20 - Human immunodeficiency virus [HIV] disease Medications: Refilled dolutegravir 50 mg PO DAILY 30 days 30 tabs 5RF emtricitabine-tenofovir alafen 200-25 mg (Descovy) 1 tab PO DAILY 30 tabs 5RF 30 days dolutegravir (Tivicay) 50 mg PO DAILY 30 tabs 5RF 30 days emtricitabine-tenofovir alafen 200-25 mg 1 tab PO DAILY 30 days 30 tabs 5RF Coding Level of Care Code Est Pt Level 3 (07032) Diagnoses HIV infection, unspecified symptom status B20 HIV symptom status: unspecified
== END 2023-10-31 15:25 | disposition home or self-care (01) ==
LOC: HO.HID 14:33
PROVIDERS: PCP Internal Medicine; Visit Provider Internal Medicine
DX: B20 Human immunodeficiency virus [HIV] disease (principal)
CPT/HCPCS: 99213

== ENCOUNTER → 2023-10-31 14:33 | Outpatient (BNVA) | payer OTHER, SELFPAY | PROVIDERS: PCP Internal Medicine; Visit Provider Internal Medicine | DX: B20 Human immunodeficiency virus [HIV] disease (principal) | CPT/HCPCS: 99212 ==

== ENCOUNTER 2023-11-10 15:18 | Outpatient (AMB) | payer OTHER, SELFPAY ==
[2023-11-10 15:31] VITALS: BP 132/80; BMI 27.2
--- NOTE | 2023-11-10 15:31 | MHC.PC.OV ---
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 Required: No Accompanied by: Self / Same As Patient Allergies morphine [MORPHINE] Allergy (Intermediate, Verified 11/10/23 15:39) RASH ibuprofen [From MOTRIN] Adverse Reaction (Intermediate, Verified 11/10/23 15:39) UPSET STOMACH, diarrhea Medication List - Last Reconciled 11/10/23 by Serena Saha MD albuterol sulfate 90 mcg/actuation (Ventolin HFA) 2 puffs inhalation Q6H PRN 30 days atorvastatin 20 mg PO BEDTIME 90 days carvedilol (Coreg) 25 mg PO BID cholecalciferol (vitamin D3) 50 mcg PO DAILY 90 days dolutegravir (Tivicay) 50 mg PO DAILY 30 days emtricitabine-tenofovir alafen 200-25 mg (Descovy) 1 tab PO DAILY 30 days hydroxyzine HCl 10 mg PO BID PRN oxycodone 5 mg PO DAILY PRN 30 days sacubitril-valsartan 97-103 mg (Entresto) 1 tab PO BID 90 days terbinafine HCl 250 mg PO DAILY 60 days triamcinolone acetonide 0.1% 1 appl topical BID 30 days Tobacco use date assessed: 11/10/23 Fall risk assessment: No Falls in past year Last assessed Fall Risk: 11/10/23 Dental Screening Dental Screen Date: 11/10/23 Did you have a dental visit in the last 12 months?: No Did you have a dental problem in the last 6 months where you did not have access to dental care?: No Was dental information given to patient?: Patient has dentist HPI HPI Comments History of Present Illness Details This is a 73 year old male with HIV, essential hypertension, nonischemic cardiomyopathy, pure hypercholesterolemia and smoker's cough that comes today for follow up on his conditions. He also has T cell lymphoma in remission and is follow by hematology/oncology once a year. HIV stable with medications and follow by ID. BP well controlled. Last EF was 15-20 % with left ventricular hypertrophy from 2022 and nonischemic cardiomyopathy is follow by Cardiology. Cholesterol stable with statins. Has smoker's cough that has been evaluated by pulmonology and this has improved by quitting smoking over a year ago. No chest pain or shortness of breath. Compliant with medications. [facility] Medical History Smokers' cough Abdominal swelling Left shoulder pain Essential hypertension Failed back syndrome Rash Neck pain NICM (nonischemic cardiomyopathy) Hepatitis B antibody positive in blood Hepatitis B core antibody positive Hepatitis C antibody positive in blood Hypertension T-cell lymphoma HIV (human immunodeficiency virus infection) Surgical History History of spinal surgery Family History Father Lung cancer Mother Asthma Other Substance use disorder Social History Housing: Apartment Alcohol intake: former Patient Tobacco Use Status: Former Tobacco user Years Smoked: 56 e-Cigarette/Vaping Use: Never Used Second Hand Smoke Exposure: No service: No Current occupational status: unemployed and disabled Cognitive needs: No Hearing needs: No Vision needs: Yes Questionnaire PHQ-9 Over the last 2 weeks, how often have you been bothered by any of the following problems? 1. Little interest or pleasure in doing things: not at all 2. Feeling down, depressed, or hopeless: not at all 3. Trouble falling or staying asleep, or sleeping too much: not at all 4. Feeling tired or having little energy: not at all 5. Poor appetite or overeating: not at all 6. Feeling bad about yourself - or that you are a failure or have let yourself or your family down: not at all 7. Trouble concentrating on things, such as reading the newspaper or watching television: not at all 8. Moving or speaking so slowly that other people could have noticed. Or the opposite - being so fidgety or restless that you have been moving around a lot more than usual: not at all 9. Thoughts that you would be better off or of hurting yourself in some way: not at all Total score: 0 Depression Screening Interpretation: Negative Depression Screening Done: Yes 42379 - PHQ-9 Billing: Yes Source: Developed by Drs. Tom Huber, Kim Allen, Mitch Davis and colleagues, with an educational guero from [employer]. Thrive Questionnaire Date Thrive assessed: 11/10/23 I am a: Patient What is your living situation today?: I have a steady place to live Within the past 12 months, did the food you bought not last and you didn't have the money to get more?: Never true Within the past 12 months, did you worry whether your food would run out before you got money to buy more?: Never true Do you have trouble paying for medicines?: No Do you have trouble getting transportation to medical appointments?: No Do you have trouble paying your heating and electricity bill?: No Do you have trouble taking care of your child, family member or friend?: No Do you have trouble with day-to-day activities such as bathing, preparing meals, shopping, managing finances, etc.?: No Are you currently unemployed and looking for a job?: No Are you interested in more education?: No Please select the resources that you would like help with: None Currently or been in a relationship where the following occur: no concerns reported THRIVE Score: 0 AUDIT C Alcohol Use Questionnaire (AUDIT-C) 1. How often do you have a drink containing alcohol?: Never Total Score: 0 Score Reviewed/Action Taken: No MAYDA-7 AMB Questionnaire MAYDA-7 Date MAYDA - 7 assessed: 11/10/23 Feeling nervous, anxious, or on edge: 0 = Not at all Not being able to stop or control worryin = Not at all Worrying too much about different things: 0 = Not at all Trouble relaxin = Not at all Being so restless that it is hard to sit still: 0 = Not at all Becoming easily annoyed or irritable: 0 = Not at all Feeling afraid as if something awful might happen: 0 = Not at all Total MAYDA-7 score (0-4 normal; 5-9 mild; 10-14 moderate; 15-21 severe): 0 Source: Developed by Drs. Tom Huber, Kim Allen, Mitch Davis and colleagues, with an educational guero from [employer]. MAYDA-7 Assessment Billing MAYDA-7 Assessment Tool: MAYDA-7 Assessment 15714 Review of Systems Const All systems reviewed & are unremarkable except as noted in HPI and below Eyes Reports no additional complaints, Denies change in vision and Denies other visual disturbances Card Denies chest pain at rest, Denies chest pain with activity, Denies edema, Denies irregular heart rhythm, Denies claudication, Denies dyspnea, Denies dyspnea on exertion, Denies orthopnea, Denies paroxysmal nocturnal dyspnea and Denies slow heart rate Resp Denies cough, Denies dyspnea and Denies dyspnea on exertion GI Denies abdominal pain, Denies change in bowel habits, Denies excessive flatus, Denies nausea and Denies vomiting Denies urinary hesitancy, Denies urinary incontinence and Denies urinary urgency Musc Denies abnormal gait, Denies atrophy, Denies deformity and Denies limited range of motion Skin/Breast Denies bleeding lesions, Denies changing lesions and Denies rash Neuro Denies abnormal gait and Denies lack of coordination Physical exam (Primary Care) Vital Signs: Last Vital Signs BP 132/80 11/10/23 15:31 BMI result Body Mass Index 27.2 Tobacco/Smoking Status: Tobacco use Status Tobacco use date assessed 11/10/23 11/10/23 15:37 Patient Tobacco Use Status Former Tobacco user 11/10/23 15:37 Tobacco use type 05/18/23 11:32 e-Cigarette/Vaping Use Never Used 11/10/23 15:37 PHQ-9: PHQ-9 Score PHQ-9: Total score 0 11/10/23 15:57 Depression Screening Interpretation: Negative Thrive Assessment: Date of Thrive Assessment Date Thrive assessed 11/10/23 11/10/23 15:37 Currently or been in a relationship where the following occur: no concerns reported Eyes General: appearance normal, both eyes and all related structures Eyelids: Yes eyelids normal Conjunctivae: conjunctivae normal Neck Neck: Yes normal visual inspection and Yes supple Resp Effort & Inspection: normal respiratory effort Auscultation: clear to auscultation bilaterally Cardio Jugular venous distension: no JVD Rate: regular rate Rhythm: regular rhythm Heart sounds: S1 normal heart sound present and S2 normal heart sound present Extrem General: Yes full ROM Assessment and Plan Assessment & Plan (1) Pure hypercholesterolemia: Code(s): E78.00 - Pure hypercholesterolemia, unspecified Plan: Continue statins. (2) HIV (human immunodeficiency virus infection): Comment: He is doing well. He takes Descovy and Tivicay. Code(s): B20 - Human immunodeficiency virus [HIV] disease Qualifiers: HIV symptom status: unspecified Qualified Code(s): B20 - Human immunodeficiency virus [HIV] disease Plan: Continue Tivicay and Descovy. Follow up with ID. (3) NICM (nonischemic cardiomyopathy): Code(s): I42.8 - Other cardiomyopathies Plan: Continue Carvedilol and Entresto. The goal is to not gain 5 lbs in a week. Follow up with Cardiology. (4) T-cell lymphoma: Comment: Doing better Code(s): C85.90 - Non-Hodgkin lymphoma, unspecified, unspecified site Plan: Follow up with hematology/oncology. Currently in remission and doing well. (5) Smokers' cough: Comment: He has halfway cigarette use and HIV and lymphoma and is very prone to additional malignancies Check screening chest CT for nodules smoker multiple pack years. Code(s): J41.0 - Simple chronic bronchitis Plan: Has markedly improved after quitting smoking. (6) Essential hypertension: Code(s): I10 - Essential (primary) hypertension Orders: Orders Vitamin D 25-OH Total 11/10/23 E55.9 - Vitamin D deficiency, unspecified Lipid Panel 11/10/23 E78.5 - Hyperlipidemia, unspecified Comprehensive [place]. Panel Fast 11/10/23 E78.00 - Pure hypercholesterolemia, unspecified Medications: Refilled atorvastatin 20 mg PO BEDTIME 90 days 90 tabs 1RF E78.00 - Pure hypercholesterolemia, unspecified oxycodone 5 mg PO DAILY 30 days PRN 15 tabs 0RF pain M96.1 - Postlaminectomy syndrome, not elsewhere classified cholecalciferol (vitamin D3) 50 mcg PO DAILY 90 days 90 caps 1RF Coding Level of Care Code Est Pt Level 4 (48982) Diagnoses Pure hypercholesterolemia E78.00 HIV infection, unspecified symptom status B20 HIV symptom status: unspecified NICM (nonischemic cardiomyopathy) I42.8 T-cell lymphoma C85.90 Smokers' cough J41.0 Essential hypertension I10 Additional Codes MAYDA-7 Assessment Billing - MAYDA-7 Assessment Tool: MAYDA-7 Assessment 63306 ([id number]) Time Spent (min) 22
== END 2023-11-10 16:03 | disposition home or self-care (01) ==
PROVIDERS: PCP Internal Medicine; Visit Provider Internal Medicine
DX: B20 Human immunodeficiency virus [HIV] disease (principal); I42.8 Other cardiomyopathies; C85.90 Non-Hodgkin lymphoma, unspecified, unspecified site; J41.0 Simple chronic bronchitis; E78.00 Pure hypercholesterolemia, unspecified; I10 Essential (primary) hypertension
CPT/HCPCS: 99214

== ENCOUNTER 2023-12-22 08:39 | Outpatient (AMB) | payer OTHER, SELFPAY ==
[2023-12-22 08:50] VITALS: BP 130/62; PULSE 82; BMI 26.8
--- NOTE | 2023-12-22 08:50 | A.OFFVIS_ITS ---
Vital Signs 12/22/23 08:50 Height 5 ft 9 in Weight 181 lb 3.52 oz BMI 26.8 BP 130/62 Blood Pressure Location Lt brachial Position Sitting Pulse 82 Intake Visit Reasons: 1 yr f/up w/ ekg [employer] Insurance Required: Yes [employer] Insurance Name: mar/derek Accompanied by: Self / Same As Patient Allergies morphine [MORPHINE] Allergy (Intermediate, Verified 11/10/23 15:39) RASH ibuprofen [From MOTRIN] Adverse Reaction (Intermediate, Verified 11/10/23 15:39) UPSET STOMACH, diarrhea Medication List - Last Reconciled 12/22/23 by Dillon Dean MD albuterol sulfate 90 mcg/actuation (Ventolin HFA) 2 puffs inhalation Q6H PRN 30 days atorvastatin 20 mg PO BEDTIME 90 days carvedilol 25 mg PO BID cholecalciferol (vitamin D3) 50 mcg PO DAILY 90 days dolutegravir (Tivicay) 50 mg PO DAILY 30 days emtricitabine-tenofovir alafen 200-25 mg (Descovy) 1 tab PO DAILY 30 days hydroxyzine HCl 10 mg PO BID PRN oxycodone 5 mg PO DAILY PRN 30 days sacubitril-valsartan 97-103 mg (Entresto) 1 tab PO BID 90 days triamcinolone acetonide 0.1% 1 appl topical BID 30 days HPI Comments Details: Julian returns for follow-up regarding cardiomyopathy. He also has longstanding HIV. Also received treatment for lymphoma in the recent past. Overall, doing good. No cardiac symptoms. [facility] Medical History Smokers' cough Abdominal swelling Left shoulder pain Essential hypertension Failed back syndrome Rash Neck pain NICM (nonischemic cardiomyopathy) Hepatitis B antibody positive in blood Hepatitis B core antibody positive Hepatitis C antibody positive in blood Hypertension T-cell lymphoma HIV (human immunodeficiency virus infection) Surgical History History of spinal surgery Family History Father Lung cancer Mother Asthma Other Substance use disorder Social History Housing: Apartment Alcohol intake: former Patient Tobacco Use Status: Former Tobacco user Years Smoked: 56 e-Cigarette/Vaping Use: Never Used Second Hand Smoke Exposure: No service: No Current occupational status: unemployed and disabled Cognitive needs: No Hearing needs: No Vision needs: Yes Review of Systems Const Denies chills, Denies fatigue, Denies fever(s), Denies frequent falls, Denies weakness, Denies weight gain and Denies weight loss ENT Denies dizziness Card Denies chest pain, Denies leg edema, Denies lightheadedness, Denies palpitations, Denies dyspnea and Denies dyspnea on exertion Resp Denies cough, Denies dyspnea and Denies dyspnea on exertion GI Denies hematochezia Musc Denies abnormal gait, Denies muscle weakness, Denies numbness, Denies radiating pain into limb and Denies tingling Neuro Denies abnormal gait, Denies dizziness, Denies frequent falls, Denies numbness, Denies tingling and Denies weakness Endo Denies fatigue and Denies palpitations Physical Exam Vital Signs: Last Vital Signs Pulse 82 12/22/23 08:50 BP 130/62 12/22/23 08:50 BMI result Body Mass Index 26.8 Const General: comfortable and no acute distress Orientation/consciousness: patient oriented x3 HEENT Other: Unremarkable Head: Yes normal to inspection Neck Neck: Yes normal visual inspection Chest Chest palpation & inspection: normal inspection of the chest Resp Auscultation: clear to auscultation bilaterally Cardio Palpation: normal PMI Heart sounds: S1 normal heart sound present, S2 normal heart sound present, no gallops, no murmurs and no rubs GI Palpation (GI): Soft to palpation Back/Spine/Pelvis Other: unremarkable Skin General skin exam: no rashes or lesions noted Neuro General: patient oriented x3 Extrem General: Yes normal to inspection Psych Mental Status: mental status grossly normal Office Procedures EKG Details: EKG with sinus rhythm at 82/Min; left ventricular hypertrophy with some repolarization changes; [place] [id number], Complete Assessment & Plan Assessment & Plan (1) NICM (nonischemic cardiomyopathy): Code(s): I42.8 - Other cardiomyopathies Category: Medical Plan: Echocardiogram with severe LV dysfunction and LVEF of 15-20%. Myocardial perfusion imaging in the past did not show any ischemic findings. Clinically, no heart failure symptoms or signs. Remains on Coreg/Entresto and he has been fairly stable on this regimen for a while. Does not want ICD and this has been discussed. Not listed to be on regular diuretics. In the future, possibly consider spironolactone/Farxiga. (2) Essential hypertension: Code(s): I10 - Essential (primary) hypertension Category: Medical Plan: Has been on Amlodipine in the past but not recently. Coding Level of Care Code Est Pt Level 4 (40184) Diagnoses NICM (nonischemic cardiomyopathy) I42.8 Essential hypertension I10 CPT Codes EKG - CPT: 33248-[id number], Complete ([id number])
== END 2023-12-22 09:09 | disposition home or self-care (01) ==
PROVIDERS: Visit Provider Internal Medicine
DX: I42.8 Other cardiomyopathies (principal); I10 Essential (primary) hypertension
CPT/HCPCS: 93010; 99214

== ENCOUNTER → 2023-12-22 08:39 | Outpatient (BNVA) | payer OTHER, SELFPAY | PROVIDERS: Visit Provider Internal Medicine | DX: I42.8 Other cardiomyopathies (principal); I10 Essential (primary) hypertension | CPT/HCPCS: 93005; 99212 ==

== ENCOUNTER 2024-01-11 07:11 | Outpatient (REF) | payer OTHER, SELFPAY ==
[2024-01-12 10:24] LABS: Absolute CD3 Count 510 cells/uL (840-3060); Absolute CD4 Count 241 cells/uL (490-1740); Absolute CD8 Count 265 cells/uL (180-1170); Absolute Lymphocytes 1028 cells/uL (850-3900); CD4 CD8 Ratio 0.91 (0.86-5.00); Percent CD3 Cells 50 % (57-85); Percent CD4 Cells 23 % (30-61); Percent CD8 Cells 26 % (12-42)
[2024-01-12 19:19] LABS: HIV RNA PCR Qn Copies NOT DETECTED copies/mL (NOT DETECTED); HIV RNA PCR Qn Log Copies NOT DETECTED (NOT DETECTED)
== END 2024-01-11 07:12 | disposition home or self-care (01) ==
LOC: HO.LAB 07:11
PROVIDERS: PCP Internal Medicine; Visit Provider Internal Medicine
DX: B20 Human immunodeficiency virus [HIV] disease (principal)
CPT/HCPCS: 36415; 86359; 86360; 87536

== ENCOUNTER 2024-01-30 13:20 | Outpatient (AMB) | payer OTHER, SELFPAY ==
[2024-01-30 13:19] VITALS: PULSE 70; O2SAT 95; BMI 27.0
--- NOTE | 2024-01-30 13:19 | A.OFFVIS_ITS ---
Vital Signs 01/30/24 13:19 Height 5 ft 9 in Weight 183 lb BMI 27.0 Pulse 70 Pulse Source Pulse Oximeter Pulse Oximetry (%) 95 Oxygen Delivery Method Room Air Intake Visit Reasons: f/u 6 mth.lab Shaper Hand Required: Yes Shaper Hand Name: Gustavo Roberts CMA Information Interpreted: clinical only Allergies morphine [MORPHINE] Allergy (Intermediate, Verified 01/30/24 13:19) RASH ibuprofen [From MOTRIN] Adverse Reaction (Intermediate, Verified 01/30/24 13:19) UPSET STOMACH, diarrhea HPI HPI f/u 6 mth.lab: Details: He has been doing well. He has CD4 count 241 and viral load undetectable on 01/10. He is up to date on health care maintenance. [facility] Medical History Smokers' cough Abdominal swelling Left shoulder pain Essential hypertension Failed back syndrome Rash Neck pain NICM (nonischemic cardiomyopathy) Hepatitis B antibody positive in blood Hepatitis B core antibody positive Hepatitis C antibody positive in blood Hypertension T-cell lymphoma HIV (human immunodeficiency virus infection) Surgical History History of spinal surgery Family History Father Lung cancer Mother Asthma Other Substance use disorder Social History Housing: Apartment Alcohol intake: former Patient Tobacco Use Status: Former Tobacco user Years Smoked: 56 e-Cigarette/Vaping Use: Never Used Second Hand Smoke Exposure: No service: No Current occupational status: unemployed and disabled Cognitive needs: No Hearing needs: No Vision needs: Yes Review of Systems Const All systems reviewed & are unremarkable except as noted in HPI and below Physical Exam Vital Signs: Last Vital Signs Pulse 70 01/30/24 13:19 Pulse Ox 95 01/30/24 13:19 Oxygen Delivery Method Room Air 01/30/24 13:19 BMI result Body Mass Index 27.0 Const General: cooperative Orientation/consciousness: patient oriented x3 HEENT Head: Yes normal to inspection Mouth: Normal oral and palatal mucosa present Eyes General: appearance normal, both eyes and all related structures Pupils: Equal, round and reactive pupils present Resp Effort & Inspection: normal respiratory effort Cardio Rate: regular rate Rhythm: regular rhythm GI Palpation (GI): Soft to palpation and nontender General: Yes no CVA tenderness Back/Spine/Pelvis Back: no CVA tenderness Skin General skin exam: no rashes or lesions noted Neuro General: patient oriented x3 Cranial nerves: Yes CN's II-XII intact bilaterally and Yes Equal, round and reactive pupils present Extrem General: Yes normal to inspection Psych Appearance: grossly normal Assessment & Plan Assessment & Plan (1) HIV (human immunodeficiency virus infection): Comment: He is doing well. He takes Descovy and Tivicay. Code(s): B20 - Human immunodeficiency virus [HIV] disease Category: Medical Qualifiers: HIV symptom status: unspecified Qualified Code(s): B20 - Human immunodeficiency virus [HIV] disease Plan: Continue current medications. See in six months and check labs before. Medication refilled. Orders: Orders HIV-1 RNA QN PCR Expanded 5 Months B20 - Human immunodeficiency virus [HIV] disease Lymphocyte Subset Panel 3 5 Months B20 - Human immunodeficiency virus [HIV] disease RPR Monitor reflex titer 5 Months B20 - Human immunodeficiency virus [HIV] disease Hepatitis C Viral Load 5 Months B20 - Human immunodeficiency virus [HIV] disease Medications: Refilled emtricitabine-tenofovir alafen 200-25 mg (Descovy) 1 tab PO DAILY 30 tabs 5RF 30 days dolutegravir (Tivicay) 50 mg PO DAILY 30 tabs 5RF 30 days Coding Level of Care Code Est Pt Level 4 (81127) Diagnoses HIV infection, unspecified symptom status B20 HIV symptom status: unspecified
== END 2024-01-30 13:49 | disposition home or self-care (01) ==
LOC: HO.HID 13:20
PROVIDERS: PCP Internal Medicine; Visit Provider Internal Medicine
DX: B20 Human immunodeficiency virus [HIV] disease (principal)
CPT/HCPCS: 99214

== ENCOUNTER → 2024-01-30 13:20 | Outpatient (BNVA) | payer OTHER, SELFPAY | PROVIDERS: PCP Internal Medicine; Visit Provider Internal Medicine | DX: B20 Human immunodeficiency virus [HIV] disease (principal) | CPT/HCPCS: 99212 ==

== ENCOUNTER 2024-04-25 10:02 | Outpatient (AMB) | payer OTHER, SELFPAY ==
--- NOTE | 2024-04-25 10:03 | A.OFFPC_ITS ---
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 Accompanied by: Self / Same As Patient Allergies morphine [MORPHINE] Allergy (Intermediate, Verified 04/25/24 10:43) RASH ibuprofen [From MOTRIN] Adverse Reaction (Intermediate, Verified 04/25/24 10:43) UPSET STOMACH, diarrhea Medication List - Last Reconciled 04/25/24 by Serena Saha MD albuterol sulfate 90 mcg/actuation (Ventolin HFA) 2 puffs inhalation Q6H PRN 30 days atorvastatin 20 mg PO BEDTIME 90 days carvedilol 25 mg PO BID cholecalciferol (vitamin D3) 50 mcg PO DAILY 90 days dolutegravir (Tivicay) 50 mg PO DAILY 30 days emtricitabine-tenofovir alafen 200-25 mg (Descovy) 1 tab PO DAILY 30 days hydroxyzine HCl 10 mg PO BID PRN oxycodone 5 mg PO DAILY PRN 30 days sacubitril-valsartan 97-103 mg (Entresto) 1 tab PO BID 90 days triamcinolone acetonide 0.1% 1 appl topical BID 30 days Tobacco use date assessed: 11/10/23 Fall risk assessment: No Falls in past year Last assessed Fall Risk: 04/25/24 Dental Screening Dental Screen Date: 11/10/23 HPI HPI Comments History of Present Illness Details This is 74-year-old male with HIV, T-cell lymphoma in remission and nonischemic cardiomyopathy that comes today for his physical exam. T-cell is follow by Hematology-Oncology. Nonischemic cardiomyopathy is follow by cardiology and last echocardiogram was last year. Denies any chest pain or shortness on breath. No acute complaints. Declines colonoscopy but is willing to do Cologuard. HIV stable with meds and follow by [facility]. [facility] Medical History (Updated 04/25/24 @ 10:52 by Serena Saha MD) Smokers' cough Abdominal swelling Left shoulder pain Essential hypertension Failed back syndrome Rash Neck pain NICM (nonischemic cardiomyopathy) Hepatitis B antibody positive in blood Hepatitis B core antibody positive Hepatitis C antibody positive in blood Hypertension T-cell lymphoma HIV (human immunodeficiency virus infection) Surgical History History of spinal surgery Family History Father Lung cancer Mother Asthma Other Substance use disorder Social History Housing: Apartment Alcohol intake: former Patient Tobacco Use Status: Former Tobacco user Years Smoked: 56 e-Cigarette/Vaping Use: Never Used Second Hand Smoke Exposure: No service: No Current occupational status: unemployed and disabled Cognitive needs: No Hearing needs: No Vision needs: Yes Questionnaire Thrive Questionnaire Date Thrive assessed: 11/10/23 I am a: Patient What is your living situation today?: I choose not to answer this question Within the past 12 months, did the food you bought not last and you didn't have the money to get more?: I choose not to answer this question Within the past 12 months, did you worry whether your food would run out before you got money to buy more?: I choose not to answer this question Do you have trouble paying for medicines?: I choose not to answer this question Do you have trouble getting transportation to medical appointments?: I choose not to answer this question Do you have trouble paying your heating and electricity bill?: I choose not to answer this question Do you have trouble taking care of your child, family member or friend?: I choose not to answer this question Do you have trouble with day-to-day activities such as bathing, preparing meals, shopping, managing finances, etc.?: I choose not to answer this question Are you currently unemployed and looking for a job?: I choose not to answer this question Are you interested in more education?: I choose not to answer this question Please select the resources that you would like help with: None Currently or been in a relationship where the following occur: I choose not to answer THRIVE Score: 0 AUDIT C Alcohol Use Questionnaire (AUDIT-C) 1. How often do you have a drink containing alcohol?: Never Total Score: 0 Score Reviewed/Action Taken: No MAYDA-7 AMB Questionnaire MAYDA-7 Date MAYDA - 7 assessed: 11/10/23 Feeling nervous, anxious, or on edge: 0 = Not at all Not being able to stop or control worryin = Not at all Worrying too much about different things: 0 = Not at all Trouble relaxin = Not at all Being so restless that it is hard to sit still: 0 = Not at all Becoming easily annoyed or irritable: 0 = Not at all Feeling afraid as if something awful might happen: 0 = Not at all Total MAYDA-7 score (0-4 normal; 5-9 mild; 10-14 moderate; 15-21 severe): 0 Source: Developed by Drs. Tom Huber, Kim Allen, Mitch Davis and colleagues, with an educational guero from [employer] MAYDA-7 Assessment Billing MAYDA-7 Assessment Tool: MAYDA-7 Assessment 61035 Review of Systems Const All systems reviewed & are unremarkable except as noted in HPI and below Card Denies chest pain at rest, Denies chest pain with activity, Denies edema, Denies irregular heart rhythm, Denies claudication, Denies dyspnea, Denies dyspnea on exertion, Denies orthopnea, Denies paroxysmal nocturnal dyspnea and Denies slow heart rate Resp Denies cough, Denies dyspnea and Denies dyspnea on exertion GI Denies abdominal pain, Denies change in bowel habits, Denies excessive flatus, Denies nausea and Denies vomiting Denies urinary hesitancy, Denies urinary incontinence and Denies urinary urgency Musc Denies atrophy, Denies deformity and Denies limited range of motion Skin/Breast Denies bleeding lesions, Denies changing lesions and Denies rash Physical exam (Primary Care) Vital Signs: Last Vital Signs BP 128/82 04/25/24 10:05 BMI result Body Mass Index 27.2 Tobacco/Smoking Status: Tobacco use Status Tobacco use date assessed 11/10/23 04/25/24 10:10 Patient Tobacco Use Status Former Tobacco user 04/25/24 10:10 Tobacco use type 05/18/23 11:32 e-Cigarette/Vaping Use Never Used 04/25/24 10:10 Thrive Assessment: Date of Thrive Assessment Date Thrive assessed 11/10/23 04/25/24 10:10 Currently or been in a relationship where the following occur: I choose not to answer [facility] Head: Yes normal to inspection, Yes normocephalic and Yes atraumatic Ears: external ears normal Eyes General: appearance normal, both eyes and all related structures Eyelids: Yes eyelids normal Conjunctivae: conjunctivae normal Neck Neck: Yes normal visual inspection and Yes supple Resp Effort & Inspection: normal respiratory effort Auscultation: clear to auscultation bilaterally Cardio Jugular venous distension: no JVD Rate: regular rate Rhythm: regular rhythm Heart sounds: S1 normal heart sound present and S2 normal heart sound present GI Inspection: Yes normal to inspection Palpation (GI): Soft to palpation and nontender Auscultation: normal bowel sounds Skin General skin exam: no rashes or lesions noted Neuro General: no focal motor deficits Extrem General: Yes full ROM Psych Appearance: grossly normal Assessment and Plan Assessment & Plan (1) Physical exam: Code(s): Z00.00 - Encounter for general adult medical examination without abnormal findings Plan: Repeat in a year. (2) HIV (human immunodeficiency virus infection): Comment: He is doing well. He takes Descovy and Tivicay. Code(s): B20 - Human immunodeficiency virus [HIV] disease Qualifiers: HIV symptom status: unspecified Qualified Code(s): B20 - Human immunodeficiency virus [HIV] disease Plan: Continue Descovy. Follow-up with ID. (3) NICM (nonischemic cardiomyopathy): Code(s): I42.8 - Other cardiomyopathies Plan: The goal is to not gain 5 lb. Follow-up with Cardiology. (4) T-cell lymphoma: Comment: Doing better Code(s): C85.90 - Non-Hodgkin lymphoma, unspecified, unspecified site Plan: Follow-up with Hematology-Oncology. In remission. Orders: Orders CA echo transthoracic complete Today I42.8 - Other cardiomyopathies Lipid Panel Today E78.5 - Hyperlipidemia, unspecified Comprehensive [place]. Panel Fast Today Z00.00 - Encounter for general adult medical examination without abnormal findings Referrals Cologuard Test Z12.11 - Encounter for screening for malignant neoplasm of colon, Z12.12 - Encounter for screening for malignant neoplasm of rectum Medications: Refilled albuterol sulfate 90 mcg/actuation (Ventolin HFA) 2 puffs inhalation Q6H PRN 6.7 grams 1RF shortness of breath or wheezing 30 days oxycodone 5 mg PO DAILY PRN 15 tabs 0RF pain 30 days M96.1 - Postlaminectomy syndrome, not elsewhere classified Review Patient declined Colonoscopy: 04/25/24 Coding Level of Care Code Est Pt Prev Care >65y(49684) Diagnoses Physical exam Z00.00 HIV infection, unspecified symptom status B20 HIV symptom status: unspecified NICM (nonischemic cardiomyopathy) I42.8 T-cell lymphoma C85.90 Additional Codes MAYDA-7 Assessment Billing - MAYDA-7 Assessment Tool: MAYDA-7 Assessment 05921 ([id number]) Time Spent (min) 31
[2024-04-25 10:05] VITALS: BP 128/82; BMI 27.2
== END 2024-04-25 11:04 | disposition home or self-care (01) ==
PROVIDERS: PCP Internal Medicine; Visit Provider Internal Medicine
DX: Z00.00 Encounter for general adult medical examination without abnormal findings (principal); B20 Human immunodeficiency virus [HIV] disease; I42.8 Other cardiomyopathies; C85.90 Non-Hodgkin lymphoma, unspecified, unspecified site
CPT/HCPCS: 99397

== ENCOUNTER 2024-07-23 13:23 | Outpatient (REF) | payer OTHER, SELFPAY ==
[2024-07-24 12:03] LABS: RPR Rapid Plasma Reagin NON-REACTIVE (NON-REACTIVE)
[2024-07-24 15:38] LABS: HCV Log PCR <1.18 NOT DETECTED Log IU/mL (NOT DETECTED); HepC Viral Load <15 NOT DETECTED IU/mL (NOT DETECTED)
[2024-07-25 15:23] LABS: HIV RNA PCR Qn Copies NOT DETECTED copies/mL (NOT DETECTED); HIV RNA PCR Qn Log Copies NOT DETECTED (NOT DETECTED)
[2024-07-28 17:42] LABS: Absolute CD3 Count 541 cells/uL (840-3060); Absolute CD4 Count 252 cells/uL (490-1740); Absolute CD8 Count 281 cells/uL (180-1170); Absolute Lymphocytes 994 cells/uL (850-3900); Percent CD3 Cells 54 % (57-85); Percent CD4 Cells 25 % (30-61); Percent CD8 Cells 28 % (12-42)
== END 2024-07-23 13:24 | disposition home or self-care (01) ==
LOC: HO.LAB 13:23
PROVIDERS: PCP Internal Medicine; Visit Provider Internal Medicine
DX: B20 Human immunodeficiency virus [HIV] disease (principal)
CPT/HCPCS: 36415; 86359; 86360; 86592; 87522; 87536

== ENCOUNTER 2024-08-01 13:16 | Outpatient (AMB) | payer OTHER, SELFPAY ==
[2024-08-01 13:16] VITALS: PULSE 74; BMI 27.9
--- NOTE | 2024-08-01 13:16 | A.OFFVIS_ITS ---
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 He has hepatitis C viral load negative. [facility] Medical History Smokers' cough Abdominal swelling Left shoulder pain Essential hypertension Failed back syndrome Rash Neck pain NICM (nonischemic cardiomyopathy) Hepatitis B antibody positive in blood Hepatitis B core antibody positive Hepatitis C antibody positive in blood Hypertension T-cell lymphoma HIV (human immunodeficiency virus infection) Surgical History History of spinal surgery Family History Father Lung cancer Mother Asthma Other Substance use disorder Social History Housing: Apartment Alcohol intake: former Patient Tobacco Use Status: Former Tobacco user Years Smoked: 56 e-Cigarette/Vaping Use: Never Used Second Hand Smoke Exposure: No service: No Current occupational status: unemployed and disabled Cognitive needs: No Hearing needs: No Vision needs: Yes Review of Systems Const All systems reviewed & are unremarkable except as noted in HPI and below Physical Exam Vital Signs: Last Vital Signs Pulse 74 08/01/24 13:16 BMI result Body Mass Index 27.9 Const General: cooperative Orientation/consciousness: patient oriented x3 HEENT Head: Yes normal to inspection Mouth: Normal oral and palatal mucosa present Eyes General: appearance normal, both eyes and all related structures Pupils: Equal, round and reactive pupils present Resp Effort & Inspection: normal respiratory effort Cardio Rate: regular rate Rhythm: regular rhythm GI Palpation (GI): Soft to palpation and nontender General: Yes no CVA tenderness Back/Spine/Pelvis Back: no CVA tenderness Skin General skin exam: no rashes or lesions noted Neuro General: patient oriented x3 Cranial nerves: Yes CN's II-XII intact bilaterally and Yes Equal, round and reactive pupils present Extrem General: Yes normal to inspection Psych Appearance: grossly normal Assessment & Plan Assessment & Plan (1) HIV (human immunodeficiency virus infection): Comment: He is doing well. He takes Descovy and Tivicay. Code(s): B20 - Human immunodeficiency virus [HIV] disease Category: Medical Qualifiers: HIV symptom status: unspecified Qualified Code(s): B20 - Human immunodeficiency virus [HIV] disease Plan: Check viral load and CD4 count in six months. Continue Descovy and Tivicay,refill Orders: Orders Syphilis Screen 5 Months B20 - Human immunodeficiency virus [HIV] disease Hepatitis C Viral Load 5 Months B20 - Human immunodeficiency virus [HIV] disease HIV-1 RNA QN PCR Expanded 5 Months B20 - Human immunodeficiency virus [HIV] disease Lymphocyte Subset Panel 3 5 Months B20 - Human immunodeficiency virus [HIV] disease Medications: Refilled dolutegravir (Tivicay) 50 mg PO DAILY 30 tabs 5RF 30 days emtricitabine-tenofovir alafen 200-25 mg (Descovy) 1 tab PO DAILY 30 tabs 5RF 30 days dolutegravir (Tivicay) 50 mg PO DAILY 30 tabs 5RF 30 days emtricitabine-tenofovir alafen 200-25 mg (Descovy) 1 tab PO DAILY 30 tabs 5RF 30 days Coding Level of Care Code Est Pt Level 3 (70032) Diagnoses HIV infection, unspecified symptom status B20 HIV symptom status: unspecified
== END 2024-08-01 14:17 | disposition home or self-care (01) ==
LOC: HO.HID 13:16
PROVIDERS: PCP Internal Medicine; Visit Provider Internal Medicine
DX: B20 Human immunodeficiency virus [HIV] disease (principal)
CPT/HCPCS: 99213

== ENCOUNTER → 2024-08-01 13:16 | Outpatient (BNVA) | payer OTHER, SELFPAY | PROVIDERS: PCP Internal Medicine; Visit Provider Internal Medicine | DX: Z21 Asymptomatic human immunodeficiency virus [HIV] infection status (principal) | CPT/HCPCS: 99212 ==

== ENCOUNTER 2024-09-03 12:33 | Outpatient (AMB) | payer OTHER, SELFPAY ==
[2024-09-03 12:36] VITALS: BP 140/80; PULSE 68; O2SAT 94; BMI 27.9
--- NOTE | 2024-09-03 12:36 | A.OFFPC_ITS ---
Vital Signs 09/03/24 12:36 Height 5 ft 9 in Weight 189 lb 4 oz BMI 27.9 BP 140/80 H Blood Pressure Location Lt brachial Position Sitting Pulse 68 Pulse Source Pulse Oximeter Pulse Oximetry (%) 94 Oxygen Delivery Method Room Air Intake Visit Reasons: 6 mo follow up Special Services Director Required: No Accompanied by: Self / Same As Patient Allergies morphine [MORPHINE] Allergy (Intermediate, Verified 09/03/24 12:49) RASH ibuprofen [From MOTRIN] Adverse Reaction (Intermediate, Verified 09/03/24 12:49) UPSET STOMACH, diarrhea Medication List - Last Reconciled 09/03/24 by Serena Saha MD albuterol sulfate 90 mcg/actuation (Ventolin HFA) 2 puffs inhalation Q6H PRN 30 days atorvastatin 20 mg PO BEDTIME 90 days carvedilol 25 mg PO BID 90 days cholecalciferol (vitamin D3) 50 mcg PO DAILY 90 days dolutegravir (Tivicay) 50 mg PO DAILY 30 days emtricitabine-tenofovir alafen 200-25 mg (Descovy) 1 tab PO DAILY 30 days hydroxyzine HCl 10 mg PO BID PRN oxycodone 5 mg PO DAILY PRN 30 days sacubitril-valsartan 97-103 mg (Entresto) 1 tab PO BID 90 days triamcinolone acetonide 0.1% 1 appl topical BID 30 days Tobacco use date assessed: 09/03/24 Fall risk assessment: No Falls in past year Last assessed Fall Risk: 09/03/24 Dental Screening Dental Screen Date: 09/03/24 Did you have a dental visit in the last 12 months?: Yes Did you have a dental problem in the last 6 months where you did not have access to dental care?: No Was dental information given to patient?: Patient has dentist HPI HPI Comments History of Present Illness Details The patient is a 74-year-old male presenting with chronic heart failure with a reduced ejection fraction. He was diagnosed with non-ischemic cardiomyopathy, with a last known ejection fraction measurement of 15 to 20% from an echocardiogram in November 2022. A prior echocardiogram conducted in April of the previous year indicated a reduced ejection fraction, though a specific number was not calculable. The patient is managed by cardiology and is currently on medications including Carvedilol 25 mg twice daily and Sacubitril/Valsartan (Entresto) also taken twice daily. His blood pressure, which was previously around 200/xx, has improved and is now around 140/80 mmHg, though noted to be slightly above target during today's visit. He also has a diagnosis of coronary artery disease and is currently taking Atorvastatin 20 mg for cholesterol management. Routine laboratory workups for cholesterol are planned. The patient reports he previously smoked and consumed alcohol but no longer partakes in these activities. His HIV is managed with Azul and another unspecified Tivicay, with care coordinated through infectious disease specialists. The patient has an appointment in November with his dietary internship and will need to have fasting labs done prior to this. He has smoker's cough and T-cell lymphoma in remission follow by Hematology- Oncology. Also has failed back syndrome on oxycodone and is complaining about constipation most likely drug-induced. [facility] Medical History Smokers' cough Abdominal swelling Left shoulder pain Essential hypertension Failed back syndrome Rash Neck pain NICM (nonischemic cardiomyopathy) Hepatitis B antibody positive in blood Hepatitis B core antibody positive Hepatitis C antibody positive in blood Hypertension T-cell lymphoma HIV (human immunodeficiency virus infection) Surgical History History of spinal surgery Family History Father Lung cancer Mother Asthma Other Substance use disorder Social History Housing: Apartment Alcohol intake: former Patient Tobacco Use Status: Former Tobacco user Years Smoked: 56 e-Cigarette/Vaping Use: Never Used Second Hand Smoke Exposure: No service: No Current occupational status: unemployed and disabled Cognitive needs: No Hearing needs: No Vision needs: Yes Questionnaire PHQ-9 Over the last 2 weeks, how often have you been bothered by any of the following problems? 1. Little interest or pleasure in doing things: not at all 2. Feeling down, depressed, or hopeless: not at all 3. Trouble falling or staying asleep, or sleeping too much: not at all 4. Feeling tired or having little energy: not at all 5. Poor appetite or overeating: not at all 6. Feeling bad about yourself - or that you are a failure or have let yourself or your family down: not at all 7. Trouble concentrating on things, such as reading the newspaper or watching television: not at all 8. Moving or speaking so slowly that other people could have noticed. Or the opposite - being so fidgety or restless that you have been moving around a lot more than usual: not at all 9. Thoughts that you would be better off or of hurting yourself in some way: not at all Total score: 0 Depression Screening Interpretation: Negative Depression Screening Done: Yes 94507 - PHQ-9 Billing: Yes Source: Developed by Drs. Tom Huber, Kim Allen, Mitch Davis and colleagues, with an educational guero from [employer]. Thrive Questionnaire Date Thrive assessed: 09/03/24 I am a: Patient What is your living situation today?: I choose not to answer this question Within the past 12 months, did the food you bought not last and you didn't have the money to get more?: I choose not to answer this question Within the past 12 months, did you worry whether your food would run out before you got money to buy more?: I choose not to answer this question Do you have trouble paying for medicines?: I choose not to answer this question Do you have trouble getting transportation to medical appointments?: I choose not to answer this question Do you have trouble paying your heating and electricity bill?: I choose not to answer this question Do you have trouble taking care of your child, family member or friend?: I choose not to answer this question Do you have trouble with day-to-day activities such as bathing, preparing meals, shopping, managing finances, etc.?: I choose not to answer this question Are you currently unemployed and looking for a job?: I choose not to answer this question Are you interested in more education?: I choose not to answer this question Please select the resources that you would like help with: None Currently or been in a relationship where the following occur: I choose not to answer THRIVE Score: 0 AUDIT C Alcohol Use Questionnaire (AUDIT-C) 1. How often do you have a drink containing alcohol?: Never 3. How often do you have six or more drinks on one occasion?: Never Total Score: 0 Score Reviewed/Action Taken: No MAYDA-7 AMB Questionnaire MAYDA-7 Date MAYDA - 7 assessed: 09/03/24 Feeling nervous, anxious, or on edge: 0 = Not at all Not being able to stop or control worryin = Not at all Worrying too much about different things: 0 = Not at all Trouble relaxin = Not at all Being so restless that it is hard to sit still: 0 = Not at all Becoming easily annoyed or irritable: 0 = Not at all Feeling afraid as if something awful might happen: 0 = Not at all Total MAYDA-7 score (0-4 normal; 5-9 mild; 10-14 moderate; 15-21 severe): 0 Source: Developed by Drs. Tom Huber, Kim Allen, Mitch Davis and colleagues, with an educational guero from [employer]. MAYDA-7 Assessment Billing MAYDA-7 Assessment Tool: MAYDA-7 Assessment 35969 Review of Systems Const Details: - Cardiovascular: Reports history of elevated blood pressure. - HEENT: Denies significant weight gain; reports weight stable since last weigh- in. - Respiratory: Denies depression. Physical exam (Primary Care) Vital Signs: Last Vital Signs Pulse 68 09/03/24 12:36 BP 140/80 H 09/03/24 12:36 Pulse Ox 94 09/03/24 12:36 Oxygen Delivery Method Room Air 09/03/24 12:36 BMI result Body Mass Index 27.9 Tobacco/Smoking Status: Tobacco use Status Tobacco use date assessed 09/03/24 09/03/24 12:44 Patient Tobacco Use Status Former Tobacco user 09/03/24 12:37 Tobacco use type 05/18/23 11:32 e-Cigarette/Vaping Use Never Used 09/03/24 12:37 PHQ-9: PHQ-9 Score PHQ-9: Total score 0 09/03/24 12:42 Depression Screening Interpretation: Negative Thrive Assessment: Date of Thrive Assessment Date Thrive assessed 09/03/24 09/03/24 12:37 Currently or been in a relationship where the following occur: I choose not to answer Const Other: General: No confusion Respiratory: Normal respiratory effort, clear to auscultation bilaterally Cardiovascular: No jugular venous distension, regular rate, regular rhythm, S1 normal heart sound present and S2 normal heart sound present, Blood pressure 140/80 Extremities: Full ROM Psychology: Grossly normal, Not depressed Office Procedures Flu Questionnaire Does the patient have a severe egg allergy?: No Immunizations Fluarix Triv [id number] (PF) 45 mcg (15 mcg x 3)/0.5 mL IM syringe Performing Provider: Serena Saha MD [facility] Documented (not given) by: LOKI Patino on 09/03/24 12:42 Reason Not Given: Patient Refused Coding Level of Care Code Est Pt Level 4 (98294) Complex EM visit Add On G2211 Diagnoses Pure hypercholesterolemia E78.00 Smokers' cough J41.0 HIV infection, unspecified symptom status B20 HIV symptom status: unspecified Essential hypertension I10 Failed back syndrome M96.1 NICM (nonischemic cardiomyopathy) I42.8 T-cell lymphoma C85.90 Additional Codes MAYDA-7 Assessment Billing - MAYDA-7 Assessment Tool: MAYDA-7 Assessment 91599 ([id number]) PHQ-9 - 86055 - PHQ-9 Billing: Yes ([id number]) Time Spent (min) 22 Assessment & Plan Assessment & Plan (1) Pure hypercholesterolemia: Code(s): E78.00 - Pure hypercholesterolemia, unspecified Category: Medical (2) Smokers' cough: Comment: He has shelter cigarette use and HIV and lymphoma and is very prone to additional malignancies Check screening chest CT for nodules smoker multiple pack years. Code(s): J41.0 - Simple chronic bronchitis Category: Medical (3) HIV (human immunodeficiency virus infection): Comment: He is doing well. He takes Descovy and Tivicay. Code(s): B20 - Human immunodeficiency virus [HIV] disease Category: Medical Qualifiers: HIV symptom status: unspecified Qualified Code(s): B20 - Human immunodeficiency virus [HIV] disease (4) Essential hypertension: Code(s): I10 - Essential (primary) hypertension Category: Medical (5) Failed back syndrome: Code(s): M96.1 - Postlaminectomy syndrome, not elsewhere classified Category: Medical (6) NICM (nonischemic cardiomyopathy): Code(s): I42.8 - Other cardiomyopathies Category: Medical (7) T-cell lymphoma: Comment: Doing better Code(s): C85.90 - Non-Hodgkin lymphoma, unspecified, unspecified site Category: Medical Plan - Refill requested medications, including albuterol inhaler and cream. - Continue current heart failure regimen with Sacubitril/Valsartan and Carvedilol. - Obtain laboratory tests for cholesterol and potential heart failure markers such as NT-proBNP. - Monitor blood pressure, aim for further reduction. - Follow up with cardiology in November. Patient was informed and verbally consented to the use of an ambient scribe for clinic note documentation during this visit. During the visit, I discussed the patient's current heart failure management and the importance of adherence to prescribed Sacubitril/Valsartan and Carvedilol to help manage his heart condition. The patient admits to past pressures often around 200 mmHg and acknowledges improvement to 140/80 mmHg. The need for control of hypertension to prevent further cardiac complications was emphasized. I informed the patient of the necessity to complete fasting laboratory tests to monitor his cholesterol and heart failure status, especially considering the reduced ejection fraction. Additionally, his record of morphine and ibuprofen allergies was reviewed, and caution in using alternative analgesics was advised. Follow-up with cardiology in November was confirmed, with the encouragement to get lab work completed beforehand. Orders: Orders Influenza [id number] Immunization Today Z23 - Encounter for immunization Lipid Panel 4 Months E78.5 - Hyperlipidemia, unspecified Comprehensive [place]. Panel Fast 4 Months E78.00 - Pure hypercholesterolemia, unspecified NT-proBNP 4 Months I42.8 - Other cardiomyopathies Medications: Refilled oxycodone 5 mg PO DAILY 30 days PRN 15 tabs 0RF pain M96.1 - Postlaminectomy syndrome, not elsewhere classified albuterol sulfate 90 mcg/actuation (Ventolin HFA) 2 puffs inhalation Q6H 30 days PRN 6.7 grams 1RF shortness of breath or wheezing triamcinolone acetonide 0.1% 1 appl topical BID 30 days 30 grams 1RF Patient Instructions: - Take medications as prescribed, including heart failure and HIV management therapies. - Schedule fasting laboratory tests before the dietary internship appointment. - Monitor blood pressure regularly and report significant changes. - Avoid ibuprofen and morphine due to allergies. - Stay informed regarding upcoming cardiology appointment in November. - Continue to abstain from smoking and alcohol consumption. - Contact for any new symptoms or concerns prior to the next scheduled visit.
== END 2024-09-03 12:57 | disposition home or self-care (01) ==
PROVIDERS: PCP Internal Medicine; Visit Provider Internal Medicine
DX: J41.0 Simple chronic bronchitis (principal); B20 Human immunodeficiency virus [HIV] disease; I42.8 Other cardiomyopathies; C85.90 Non-Hodgkin lymphoma, unspecified, unspecified site; E78.00 Pure hypercholesterolemia, unspecified; I10 Essential (primary) hypertension; M96.1 Postlaminectomy syndrome, not elsewhere classified

== ENCOUNTER → 2024-09-03 12:33 | Outpatient (BNVA) | payer OTHER, SELFPAY | PROVIDERS: PCP Internal Medicine; Visit Provider Internal Medicine | DX: I11.0 Hypertensive heart disease with heart failure (principal); I50.9 Heart failure, unspecified; I25.10 Atherosclerotic heart disease of native coronary artery without angina pectoris; E78.00 Pure hypercholesterolemia, unspecified; J41.0 Simple chronic bronchitis; B20 Human immunodeficiency virus [HIV] disease; M96.1 Postlaminectomy syndrome, not elsewhere classified; I42.8 Other cardiomyopathies; C85.90 Non-Hodgkin lymphoma, unspecified, unspecified site; Z79.891 Long term (current) use of opiate analgesic; Z28.21 Immunization not carried out because of patient refusal; Z79.899 Other long term (current) drug therapy | CPT/HCPCS: 96127; 99212 ==

== ENCOUNTER 2024-12-25 10:19 | Outpatient (AMB) | payer OTHER, SELFPAY ==
[2024-12-25 10:44] VITALS: BP 130/70; PULSE 79; BMI 27.9
--- NOTE | 2024-12-25 10:44 | A.OFFVIS_ITS ---
Vital Signs 12/25/24 10:44 Height 5 ft 9 in Weight 189 lb 2.506 oz BMI 27.9 BP 130/70 Blood Pressure Location Lt brachial Position Sitting Pulse 79 Pulse Source Monitor Intake Visit Reasons: 1 yr f/up Operations Project Manager Required: Yes Operations Project Manager Language: Neuropathologist Name: [email or web address]/[id number] Accompanied by: Self / Same As Patient Allergies morphine [MORPHINE] Allergy (Intermediate, Verified 09/03/24 12:49) RASH ibuprofen [From MOTRIN] Adverse Reaction (Intermediate, Verified 09/03/24 12:49) UPSET STOMACH, diarrhea Medication List - Last Reconciled 12/25/24 by Dillon Dean MD albuterol sulfate 90 mcg/actuation (Ventolin HFA) 2 puffs inhalation Q6H PRN 30 days atorvastatin 20 mg PO BEDTIME 90 days carvedilol 25 mg PO BID 90 days cholecalciferol (vitamin D3) 50 mcg PO DAILY 90 days docusate calcium 240 mg PO BEDTIME PRN 90 days docusate sodium (Colace) 100 mg PO DAILY PRN 90 days dolutegravir (Tivicay) 50 mg PO DAILY 30 days emtricitabine-tenofovir alafen 200-25 mg (Descovy) 1 tab PO DAILY 30 days hydroxyzine HCl 10 mg PO BID PRN oxycodone 5 mg PO DAILY PRN 30 days sacubitril-valsartan 97-103 mg (Entresto) 1 tab PO BID 90 days triamcinolone acetonide 0.1% 1 appl topical BID 30 days HPI Comments Details: Julian returns for follow-up regarding cardiomyopathy. He also has longstanding HIV. Also received treatment for lymphoma in the recent past. Sometimes during exertion, he feels short of breath. However, it seems to be rather with severe exertion as it happened when he was cleaning snow. No other complaints. [facility] Medical History Smokers' cough Abdominal swelling Left shoulder pain Essential hypertension Failed back syndrome Rash Neck pain NICM (nonischemic cardiomyopathy) Hepatitis B antibody positive in blood Hepatitis B core antibody positive Hepatitis C antibody positive in blood Hypertension T-cell lymphoma HIV (human immunodeficiency virus infection) Surgical History History of spinal surgery Family History Father Lung cancer Mother Asthma Other Substance use disorder Social History Housing: Apartment Alcohol intake: former Patient Tobacco Use Status: Former Tobacco user Years Smoked: 56 e-Cigarette/Vaping Use: Never Used Second Hand Smoke Exposure: No service: No Current occupational status: unemployed and disabled Cognitive needs: No Hearing needs: No Vision needs: Yes Review of Systems Const Denies chills, Denies fatigue, Denies fever(s), Denies frequent falls, Denies weakness, Denies weight gain and Denies weight loss ENT Denies dizziness Card Denies chest pain, Denies leg edema, Denies lightheadedness, Denies palpitations, Reports dyspnea and Reports dyspnea on exertion Resp Denies cough, Reports dyspnea and Reports dyspnea on exertion GI Denies hematochezia Musc Denies abnormal gait, Denies muscle weakness, Denies numbness, Denies radiating pain into limb and Denies tingling Neuro Denies abnormal gait, Denies dizziness, Denies frequent falls, Denies numbness, Denies tingling and Denies weakness Endo Denies fatigue and Denies palpitations Physical Exam Vital Signs: Last Vital Signs Pulse 79 12/25/24 10:44 BP 130/70 12/25/24 10:44 BMI result Body Mass Index 27.9 Const General: comfortable and no acute distress Orientation/consciousness: patient oriented x3 HEENT Other: Unremarkable Head: Yes normal to inspection Neck Neck: Yes normal visual inspection Chest Chest palpation & inspection: normal inspection of the chest Resp Auscultation: diminished lung sounds Cardio Palpation: normal PMI Heart sounds: S1 normal heart sound present, S2 normal heart sound present, no gallops, no murmurs and no rubs GI Palpation (GI): Soft to palpation Back/Spine/Pelvis Other: unremarkable Skin General skin exam: no rashes or lesions noted Neuro General: patient oriented x3 Extrem General: Yes normal to inspection Psych Mental Status: mental status grossly normal Office Procedures EKG Details: EKG with underlying sinus rhythm at 79/Min; inferior and anterolateral [place] [id number], Complete Assessment & Plan Assessment & Plan (1) NICM (nonischemic cardiomyopathy): Code(s): I42.8 - Other cardiomyopathies Category: Medical Plan: Echocardiogram with severe LV dysfunction and LVEF of 15-20%. Myocardial perfusion imaging in the past did not show any ischemic findings. Remains on Coreg/Entresto and he has been fairly stable on this regimen for a while. Does not want ICD and this has been discussed in the past. He has got no volume overload and hence does not need any regular diuretics. We can however, add spironolactone and check labs in a few days after that. Consider Farxiga for future but he really does not have any heart failure symptoms. (2) Essential hypertension: Code(s): I10 - Essential (primary) hypertension Category: Medical Plan: Has been on Amlodipine in the past but not recently. Plan Discussion Notes We reviewed the necessity for a heart ultrasound to assess cardiac function, considering the history of a weak heart, raising the possibility of heart failure. The patient was informed of introducing a new medication to help manage his symptoms and the need for completing outstanding blood work and kidney evaluations. We discussed the potential benefits, risks, and side effects of these interventions. The patient expressed understanding and agreement with the proposed diagnostic and treatment plans. Patient was informed and verbally consented to the use of an ambient scribe for clinic note documentation during this visit. Orders: Orders CA echo transthoracic complete Today I42.8 - Other cardiomyopathies B Type Natriuretic Peptide 2 Weeks I42.8 - Other cardiomyopathies, I50.9 - Heart failure, unspecified Basic Metabolic Panel 2 Weeks I42.8 - Other cardiomyopathies, I50.9 - Heart failure, unspecified Medications: New spironolactone 25 mg PO DAILY 90 tabs 1RF I42.8 - Other cardiomyopathies Patient Instructions: - Follow up on completing all necessary blood work. - Undergo a heart ultrasound as scheduled. - Begin taking the new medication as prescribed. - Avoid strenuous activity until further evaluation and instruction. - Report any new or worsening symptoms promptly. - Attend follow-up appointments as advised. Coding Level of Care Code Est Pt Level 4 (15780) Complex EM visit Add On G2211 Diagnoses NICM (nonischemic cardiomyopathy) I42.8 Essential hypertension I10 CPT Codes EKG - CPT: 50827-[id number], Complete ([id number])
== END 2024-12-25 11:05 | disposition home or self-care (01) ==
LOC: HO.HCS 10:20
PROVIDERS: PCP Internal Medicine; Visit Provider Internal Medicine
DX: I42.8 Other cardiomyopathies (principal); I10 Essential (primary) hypertension
CPT/HCPCS: 93010; 99214; G2211

== ENCOUNTER → 2024-12-25 10:19 | Outpatient (BNVA) | payer OTHER, SELFPAY | PROVIDERS: PCP Internal Medicine; Visit Provider Internal Medicine | DX: I42.8 Other cardiomyopathies (principal); I10 Essential (primary) hypertension; R94.31 Abnormal electrocardiogram [ECG] [EKG]; I45.81 Long QT syndrome | CPT/HCPCS: 93005; 99212 ==

== ENCOUNTER 2025-01-24 08:33 | Outpatient (REF) | payer OTHER, SELFPAY ==
[2025-01-24 10:02] LABS: B Type Natriuretic Peptide 357 pg/mL (<100)
[2025-01-24 10:10] LABS: Alanine Aminotransferase 18 U/L (0-40); Albumin Level 4.2 g/dL (3.5-5.0); Alkaline Phosphatase 58 U/L (39-117); Anion Gap 12 (12-20); Aspartate Amino Transferase 22 U/L (5-37); Bilirubin Total 1.9 mg/dL (0.0-1.0); Blood Urea Nitrogen 17 mg/dL (9-16); Carbon Dioxide 26 mmol/L (22-29); Chloride 112 mmol/L (96-108); Cholesterol 193 mg/dL (<200); Estimated Glomerular Filt Rate 57; Glucose Fasting 98 mg/dL (60-99); Glucose Random 97 mg/dL (60-115); HDL Cholesterol 58 mg/dL (>40); LDL Cholesterol Calculated 124 mg/dL (<100); Sodium 146 mmol/L (135-145); Total Protein 6.7 g/dL (6.5-8.0); Triglycerides 57 mg/dL (<150)
[2025-01-25 05:08] LABS: NT-proBNP 1348 pg/mL (<125)
== END 2025-01-24 08:34 | disposition home or self-care (01) ==
LOC: HO.LAB 08:33
PROVIDERS: Absent Provider Internal Medicine; PCP Internal Medicine; Visit Provider Internal Medicine
DX: Z00.00 Encounter for general adult medical examination without abnormal findings (principal); E78.5 Hyperlipidemia, unspecified; I42.8 Other cardiomyopathies; I50.9 Heart failure, unspecified
CPT/HCPCS: 36415; 80048; 80053; 80061; 83880

== ENCOUNTER → 2025-01-25 10:48 | Outpatient (REF) | payer OTHER, SELFPAY ==
--- NOTE | 2025-01-25 10:50 | CA_ITS ---
Transthoracic Echocardiogram Patient (Last, First, Middle): Julian Dickson, Gender: Male Date of : 1950 Age: 74 Procedure Date: 01/25/2025 Procedure Type: Transthoracic Echocardiogram Location: OP Height: 175. cm Weight: 81.65 kg BSA: 1.97 m2 Heart Rate: 67 bpm BP: 138 / 60 mmHg Management Planner: IMELDA Walker MD: Dillon Dean MD Superior Court Clerk: Babar Sandoval MD Symptoms: I42.8 - Other cardiomyopathies Study Quality: Adequate ECG Rhythm: Sinus Conclusions: - 1. Mildly dilated left ventricle with LVEF of 30 35% with mild LVH with elevated filling pressures 2. Mildly dilated left atrium 3. Normal cardiac valvular Dopplers 4. No gross pericardial effusion Findings Left Ventricle Mildly increased left ventricular cavity size. There is mildly increased left ventricular wall thickness. The left ventricular systolic function is moderate to severely decreased. The visually estimated ejection fraction is between 30-35%. Spectral Doppler is indicative of an impaired relaxation filling pattern. Elevated filling pressures. E/E prime ratio is >15, consistent with elevated filling pressures. Right Ventricle Mildly increased right ventricular cavity size. There is normal right ventricular systolic function. Atria The left atrium is mildly dilated. There is an interatrial septal aneurysm seen bowing to the right. There is no evidence of interatrial shunt. The right atrium is normal in size. Aortic Valve The aortic valve structure and function is likely normal. There is no aortic valve stenosis. There is no aortic valve regurgitation. Mitral Valve There is mild anterior and posterior mitral leaflet thickening. There is trace mitral valve regurgitation. There is no mitral valve stenosis. Pulmonic Valve The pulmonic valve was not well visualized. Tricuspid Valve Likely normal tricuspid valve structure and function. Tricuspid regurgitation envelope is inadequate for calculation of right ventricular systolic pressure. Normal right atrial pressure. Great Vessels All visible segments of the aorta are normal in size. Venous The inferior vena cava is normal in size and collapses greater than 50% with inspiration. Pericardium/Pleural There is no evidence of pericardial effusion. Prior Study Comparison Changes noted compared to prior study dated: 12/01/2022. LV function is marginally improved Measurements 2D Linear Measurements IVSd: 1.19 0.6-0.9/0.6-1.0 cm LVIDd: 5.83 3.9-5.3/4.2-5.9 cm LVIDd Index: 2.96 2.4-3.2/2.2-3.1 cm/m2 LVIDs: 4.52 2.0-3.6 cm LVPWd: 1.27 0.7-1.1 cm LA Diam: 4.00 2.7-3.8/3.0-4.0 cm LAIDs Index: 2.03 1.5-2.3 cm/m2 LV Mass: 386.43 67-162/88-224 g LV Mass Index: 196.16 43-95/49-115 g/m2 LVOT Diam: 2.30 3.0+(-)1.3 cm 2D Systolic Function EF 4C: 35.10 >55% EF 2C: 25.80 >55% EF BiP: 30.40 >55% Mitral Valve MV Pk E: 0.57 MV PK A: 1.05 MV Decel Time: 318.00 E/A: 0.50 E'Lateral: 2.55 E'Medial: 2.70 E/E' Med: 21.00 E/E' Lat: 22.30 PHT: 93.00 MVA PHT: 2.37 Decel Tucker: 1.79 Aortic Valve AoV Pk Reagan: 0.92 AoV Mn Reagan: 0.71 AoV VTI: 0.20 AoV Pk Grad: 3.00 Aov Mn Grad: 2.00 SAWYER Cont.VTI: 3.65 LVOT LVOT Pk Reagan: 0.85 LVOT Mn Reagan: 0.58 LVOT VTI: 0.18 LVOT Pk Grad: 3.00 LVOT Mn Grad: 2.00 LVOT Diam: 2.30 LVOT Area: 4.15 Diastolic Function MV Pk E: 0.57 MV Pk A: 1.05 E/A: 0.50 E'Medial: 2.70 E/E' Med: 21.00 E' Laterial: 2.55 E/E' Lat: 22.30 Right Ventricle TAPSE (mm): 18.40 TVS' Reagan: 9.23 Tricuspid Valve RA Press: 3.00 Great Vessels Aorta Sinus of Valsalva: 3.90 2.0-3.5 cm Ao Asc: 3.50 2.1-3.4 cm Pulmonary Valve PV Pk Reagan: 0.73 Peak PV Grad: 2.00 Updated in Other Vendor System with Status of Final Babar Sandoval MD electronically signed on 01/26/2025 11:03:55 AM with status of Final
== END ==
LOC: HO.CARD 10:48
PROVIDERS: PCP Internal Medicine; Visit Provider Internal Medicine
DX: I42.8 Other cardiomyopathies (principal)
CPT/HCPCS: 93306

== ENCOUNTER → 2025-01-25 10:50 | Outpatient (BNV) | payer OTHER, SELFPAY | PROVIDERS: PCP Internal Medicine; Visit Provider Internal Medicine Cardiovascular Disease | DX: I42.8 Other cardiomyopathies (principal); I25.3 Aneurysm of heart | CPT/HCPCS: 93306 ==

== ENCOUNTER 2025-01-30 12:21 | Outpatient (REF) | payer OTHER, SELFPAY ==
[2025-01-30 14:22] LABS: Alanine Aminotransferase 22 U/L (0-40); Albumin Level 4.2 g/dL (3.5-5.0); Alkaline Phosphatase 56 U/L (39-117); Anion Gap 9 (12-20); Aspartate Amino Transferase 22 U/L (5-37); Bilirubin Total 1.9 mg/dL (0.0-1.0); Blood Urea Nitrogen 18 mg/dL (9-16); Calcium 9.1 mg/dL (8.4-10.2); Carbon Dioxide 28 mmol/L (22-29); Chloride 110 mmol/L (96-108); Cholesterol 192 mg/dL (<200); Estimated Glomerular Filt Rate 55; Glucose Fasting 95 mg/dL (60-99); HDL Cholesterol 63 mg/dL (>40); LDL Cholesterol Calculated 111 mg/dL (<100); Potassium 4.5 mmol/L (3.3-5.1); Sodium 142 mmol/L (135-145); Total Protein 6.8 g/dL (6.5-8.0); Triglycerides 93 mg/dL (<150)
[2025-01-31 04:10] LABS: Syphilis Screen Nonreactive (Nonreactive)
[2025-01-31 15:18] LABS: HIV RNA PCR Qn Copies NOT DETECTED copies/mL (NOT DETECTED); HIV RNA PCR Qn Log Copies NOT DETECTED (NOT DETECTED)
[2025-02-01 15:13] LABS: HCV Log PCR <1.18 NOT DETECTED Log IU/mL (NOT DETECTED); HepC Viral Load <15 NOT DETECTED IU/mL (NOT DETECTED)
[2025-02-03 18:58] LABS: Absolute CD3 Count 488 cells/uL (840-3060); Absolute CD4 Count 237 cells/uL (490-1740); Absolute CD8 Count 251 cells/uL (180-1170); Absolute Lymphocytes 982 cells/uL (850-3900); CD4 CD8 Ratio 0.94 (0.86-5.00); Percent CD3 Cells 50 % (57-85); Percent CD4 Cells 24 % (30-61); Percent CD8 Cells 26 % (12-42)
== END 2025-01-30 12:22 | disposition home or self-care (01) ==
LOC: HO.LAB 12:21
PROVIDERS: PCP Internal Medicine; Visit Provider Internal Medicine
DX: B20 Human immunodeficiency virus [HIV] disease (principal); E78.00 Pure hypercholesterolemia, unspecified
CPT/HCPCS: 36415; 80053; 80061; 86359; 86360; 86780; 87522; 87536

== ENCOUNTER 2025-02-11 09:23 | Outpatient (AMB) | payer OTHER, SELFPAY ==
[2025-02-11 09:38] VITALS: BP 128/82; PULSE 83; O2SAT 99
--- NOTE | 2025-02-11 09:38 | AM.OFFVISNUR ---
Vital Signs 02/11/25 09:38 BP 128/82 Blood Pressure Location Lt brachial Position Sitting Pulse 83 Pulse Source Pulse Oximeter Pulse Oximetry (%) 99 Oxygen Delivery Method Room Air Intake Visit Reasons: f/u 6 mth. Allergies morphine [MORPHINE] Allergy (Intermediate, Verified 09/03/24 12:49) RASH ibuprofen [From MOTRIN] Adverse Reaction (Intermediate, Verified 09/03/24 12:49) UPSET STOMACH, diarrhea Coding
--- NOTE | 2025-02-11 10:03 | A.OFFVISCC_ITS ---
Vital Signs 02/11/25 09:38 BP 128/82 Blood Pressure Location Lt brachial Position Sitting Pulse 83 Pulse Source Pulse Oximeter Pulse Oximetry (%) 99 Oxygen Delivery Method Room Air Intake Visit Reasons: f/u 6 mth. Allergies morphine [MORPHINE] Allergy (Intermediate, Verified 09/03/24 12:49) RASH ibuprofen [From MOTRIN] Adverse Reaction (Intermediate, Verified 09/03/24 12:49) UPSET STOMACH, diarrhea HPI Comments Details: He is doing well and seeing Dr. Davis for PCP. He is doing well. His CD4 is 237 and viral load undetectable on 01/30. He takes Descovy and Tivicay and is doing well and doesnt want to switch. He has had colonoscopy in past PSA/prostate check is undetectable. He has had T cell lymphoma. He doesnt get vaccines and doesnt want anal Pap at all. Review of Systems Const All systems reviewed & are unremarkable except as noted in HPI and below Physical Exam Vital Signs: Last Vital Signs Pulse 83 02/11/25 09:38 BP 128/82 02/11/25 09:38 Pulse Ox 99 02/11/25 09:38 Oxygen Delivery Method Room Air 02/11/25 09:38 Const General: cooperative HEENT Head: Yes normal to inspection Face and sinus: Yes normal facial exam Mouth: Normal oral and palatal mucosa present Teeth and gingiva: dentition normal Eyes General: appearance normal, both eyes and all related structures Pupils: Equal, round and reactive pupils present Resp Effort & Inspection: normal respiratory effort Cardio Rate: regular rate Rhythm: regular rhythm GI Palpation (GI): Soft to palpation and nontender General: Yes no CVA tenderness Back/Spine/Pelvis Back: no CVA tenderness Skin General skin exam: no rashes or lesions noted Neuro General: moves all extremities Cranial nerves: Yes Equal, round and reactive pupils present Extrem General: Yes normal to inspection Psych Appearance: grossly normal [facility] Medical History Smokers' cough Abdominal swelling Left shoulder pain Essential hypertension Failed back syndrome Rash Neck pain NICM (nonischemic cardiomyopathy) Hepatitis B antibody positive in blood Hepatitis B core antibody positive Hepatitis C antibody positive in blood Hypertension T-cell lymphoma HIV (human immunodeficiency virus infection) Surgical History History of spinal surgery Family History Father Lung cancer Mother Asthma Other Substance use disorder Social History Housing: Apartment Alcohol intake: former Patient Tobacco Use Status: Former Tobacco user Years Smoked: 56 e-Cigarette/Vaping Use: Never Used Second Hand Smoke Exposure: No service: No Current occupational status: unemployed and disabled Cognitive needs: No Hearing needs: No Vision needs: Yes Assessment & Plan Assessment & Plan (1) HIV (human immunodeficiency virus infection): Comment: He is doing well. He takes Descovy and Tivicay. He declines anal Pap and vaccines. Code(s): B20 - Human immunodeficiency virus [HIV] disease Category: Medical Qualifiers: HIV symptom status: unspecified Qualified Code(s): B20 - Human immunodeficiency virus [HIV] disease Plan: Continue Tivicay and Descovy (renewed),5 month and one refill. He doesnt want to change. He will accept bone density. Check HIV viral load and CD4 count in 6 months and see then. Check urinalysis for protein. (2) Hepatitis B core antibody positive: Comment: Natural disease,likely acquired IVDU Code(s): R76.8 - Other specified abnormal immunological findings in serum Category: Medical Plan: na (3) T-cell lymphoma: Comment: Doing better Code(s): C85.90 - Non-Hodgkin lymphoma, unspecified, unspecified site Category: Medical Plan: na (4) Hypertension: Code(s): I10 - Essential (primary) hypertension Category: Medical Qualifiers: Hypertension type: essential hypertension Qualified Code(s): I10 - Essential (primary) hypertension Plan: na Orders: Orders HIV-1 RNA QN PCR Expanded 6 Months B20 - Human immunodeficiency virus [HIV] disease Lymphocyte Subset Panel 3 6 Months B20 - Human immunodeficiency virus [HIV] disease XR DEXA axial skeleton Today M89.9 - Disorder of bone, unspecified UA w Microscopic Today I10 - Essential (primary) hypertension Medications: Refilled dolutegravir (Tivicay) 50 mg PO DAILY 30 days 30 tabs 5RF emtricitabine-tenofovir alafen 200-25 mg (Descovy) 1 tab PO DAILY 30 days 30 tabs 5RF
== END 2025-02-11 10:03 | disposition home or self-care (01) ==
PROVIDERS: PCP Internal Medicine; Visit Provider Internal Medicine
DX: B20 Human immunodeficiency virus [HIV] disease (principal); R76.8 Other specified abnormal immunological findings in serum; C85.90 Non-Hodgkin lymphoma, unspecified, unspecified site; I10 Essential (primary) hypertension
CPT/HCPCS: 99214

== ENCOUNTER → 2025-02-11 09:23 | Outpatient (BNVA) | payer OTHER, SELFPAY | PROVIDERS: PCP Internal Medicine; Visit Provider Internal Medicine | DX: B20 Human immunodeficiency virus [HIV] disease (principal); M89.9 Disorder of bone, unspecified; I10 Essential (primary) hypertension; C85.90 Non-Hodgkin lymphoma, unspecified, unspecified site | CPT/HCPCS: 99212 ==

== ENCOUNTER 2025-03-27 08:35 | Outpatient (REF) | payer OTHER, SELFPAY ==
--- NOTE | ~2025-03-27 | MM_ITS ---
EXAMINATION: DXA BONE DENSITY AXIAL HISTORY: M89.9 - Disorder of bone, unspecified TECHNIQUE: Divitel Dual energy absorptiometry (DEXA) of the lumbar spine, total left hip, and femoral neck was performed. COMPARISON: There are no prior studies for comparison. FINDINGS: The bone mineral density of the lumbar spine is 1.421 g/cm2, corresponding to a T-score of 1.5, and a Z-score of 2.0. This is indicative of normal bone mineral density. The bone mineral density of the left total hip is 1.102 g/cm2, corresponding to a T-score of 0.0, and a Z-score of 0.7. This is indicative of normal bone mineral density. The bone mineral density of the left femoral neck is 1.016 g/cm2, corresponding to a T-score of -0.4, and a Z-score of 0.8. This is indicative of normal bone mineral density. MM/XR DEXA axial skeleton IMPRESSION: Based on bone mineral density, and according to World Health Organization (WHO) criteria, the diagnosis is consistent with normal bone mineral density. Statistically, 68% of repeat scans fall within 1 SD (+/- 0.010 g/cm2 for AP spine L1-L4) and 1 SD (+/- 0.012 g/cm2 for femur total) FRAX is a trademark of the [employer], a World Health Organization (WHO) Collaborating Center. Electronically signed by: Tom Mcknight MD 03/27/2025 09:34 AM EDT
--- OUTSIDE RECORDS SUMMARY | 2025-03-27 08:50 | XMS_ITS | Clinical Summary ---
Author Organization [facility] Address [address] [place] [id number] Phone Care Team Providers Care Factory Helper Name Role Phone Dillon Dean MD Primary Care Provider Self-Referred, Patient Unavailable Unavailab le Allergies Active Allergy Reactions Criticality Noted Date Comments Ibuprofen 07/22/2019 Morphine 07/22/2019 Medications carvedilol (COREG) 25 MG tablet Take 25 mg by mouth 2 (two) times a day. 05/19/2020 Active ENTRESTO 97-103 mg per tablet Take 1 tablet by mouth 2 (two) times a day. 05/11/2020 Active nicotine (NICODERM CQ) 14 mg/[address] 1 patch onto the skin daily. 07/07/2020 Active DESCOVY 200-25 mg tablet Take 1 tablet by mouth daily. 07/07/2020 Active TIVICAY 50 mg Tab Take 50 mg by mouth daily. 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 Not on christiano e 12/24/2022 Are you concerned about learning? Not on file 12/24/2022 No 12/24/2022 No 12/24/2022 Digital Access Answer Date Recorded No 01/25/2023 No 01/25/2023 No 01/25/2023 Reliable internet access at home? Not on file 01/25/2023 Device with a working camera? Not on file Sex and Gender Information Value Date Recorded Sex Assigned at Not on file Legal Sex Male 10:30 AM EDT Gender Identity Not on file Sexual Orientation Not on file Last Filed Vital Signs Vital Sign Reading Time Taken Comments Blood Pressure 134/80 10/16/2019 10:14 AM EST Pulse 104 10/16/2019 10:14 AM EST Temperature - - Respiratory Rate 16 07/24/2019 10:42 AM EST Oxygen Saturation 98% 10/16/2019 10:14 AM EST Inhaled Oxygen Concentration - - Weight 81.6 kg (180 lb) 10/16/2019 10:14 AM EST Height 175.3 cm (5' 9 ) 10/16/2019 10:14 AM EST Body Mass Index 26.58 10/16/2019 10:14 AM EST Plan of Treatment Health Maintenance Due Date Last Done Comments Adult Td,Tdap Booster 1952 LIPID PANEL 1952 DEPRESSION SCREENING 1964 SMOKING Hx and SMOKELESS TOB ACCO SCREENING 1965 HEPATITIS C SCREENING 1970 ZOSTER VACCINES (1 of 2) 1971 COLOGUARD 1997 COLONOSCOPY 1997 COLORECTAL CANCER SCREENING 1997 FIT TEST 1997 FOBT 1997 SIGMOIDOSCOPY 1997 VIRTUAL COLONOSCOPY 1997 RSV VACCINE (1 - Risk 60-74 years 1-dose series) 2012 ABDOMINAL AORTIC ANEURYSM (A AA) SCREENING 2017 PNEUMOCOCCAL VACCINES (50+ y ears) (2 of 2 - PCV) 12/08/2019 12/07/2018 COVID-19 VACCINE ( - 2023-2 5 season) 2024 HEPATITIS A VACCINES Aged Out No long er eligible based on patient's age to complete this topic HIB VACCINES Aged Out No longer eligi ble based on patient's age to complete this topic MENINGOCOCCAL VACCINES (ACWY) Aged Out No longer eligible based on patient's age to complete this topic MENINGOCOCCAL VACCINES (B) Aged Out N o longer eligible based on patient's age to complete this topic Medical Devices Not on file Insurance [facility] MEDICARE REPLACEMENT [facility] MEDIC[facility] REPLACEMENT [facility] MEDICARE REPLACEMENT [facility] MEDICARE REPLACEMENT [facility] MEDICARE REPLACEMENT [facility] MEDICARE [facility]PLACEMENT [facility] MEDICARE REPLACEMENT [facility] MEDICARE REPLACEMENT [facility] MEDICARE REPLACEMENT Care Teams Factory Helper Relationship Specialty Start Date End Date Dillon Dean MD [address] [address] PCP - General Cardiology 07/24/19 Self-Referred, Patient Referring Physician 07/18/20 Additional Source Comments The information contained in this document represents components of the legal health record. It is not the complete legal health record.[facility]
== END 2025-03-27 08:36 | disposition home or self-care (01) ==
LOC: HO.MAMMO 08:35
PROVIDERS: PCP Internal Medicine; Visit Provider Internal Medicine
DX: Z13.820 Encounter for screening for osteoporosis (principal); M89.9 Disorder of bone, unspecified
CPT/HCPCS: 77080

== ENCOUNTER → 2025-03-27 09:15 | Outpatient (BNV) | payer OTHER, SELFPAY | PROVIDERS: PCP Internal Medicine; Visit Provider Radiology Diagnostic Radiology | DX: M89.9 Disorder of bone, unspecified (principal) | CPT/HCPCS: 77080 ==

== ENCOUNTER 2025-05-02 08:21 | Outpatient (AMB) | payer OTHER, SELFPAY ==
[2025-05-02 08:27] VITALS: BP 140/70; PULSE 73; RESP 18; TEMP 36.1; O2SAT 95; BMI 26.8
--- NOTE | 2025-05-02 08:27 | MHC.PC.OV ---
Vital Signs 05/02/25 08:27 Height 5 ft 9 in Weight 181 lb 8 oz BMI 26.8 BP 140/70 H Blood Pressure Location Lt brachial Position Sitting Respiration 18 Pulse 73 Pulse Source Pulse Oximeter Temp 96.9 F Temp Source Temporal Artery Scan Pulse Oximetry (%) 95 Oxygen Delivery Method Room Air Intake Visit Reasons: PE Loan Auditor Required: No Accompanied by: Self / Same As Patient Allergies morphine (MORPHINE) Allergy (Intermediate, Verified 05/02/25 08:54) RASH ibuprofen (From MOTRIN) Adverse Reaction (Intermediate, Verified 05/02/25 08:54) UPSET STOMACH, diarrhea Medication List - Last Reconciled 05/02/25 by Serena Saha MD albuterol sulfate 90 mcg/actuation (Ventolin HFA) 2 puffs inhalation Q6H PRN 30 days atorvastatin 20 mg PO BEDTIME 90 days carvedilol 25 mg PO BID 90 days cholecalciferol (vitamin D3) 50 mcg PO DAILY 90 days docusate calcium 240 mg PO BEDTIME PRN 90 days docusate sodium (Colace) 100 mg PO DAILY PRN 90 days dolutegravir (Tivicay) 50 mg PO DAILY 30 days emtricitabine-tenofovir alafen 200-25 mg (Descovy) 1 tab PO DAILY 30 days hydroxyzine HCl 10 mg PO BID PRN oxycodone 5 mg PO DAILY PRN 30 days sacubitril-valsartan 97-103 mg (Entresto) 1 tab PO BID 90 days spironolactone 25 mg PO DAILY triamcinolone acetonide 0.1% 1 appl topical BID 30 days Tobacco use date assessed: 05/02/25 Fall risk assessment: No Falls in past year Last assessed Fall Risk: 05/02/25 Dental Screening Dental Screen Date: 05/02/25 Did you have a dental visit in the last 12 months?: No Did you have a dental problem in the last 6 months where you did not have access to dental care?: No Was dental information given to patient?: No HPI HPI Comments History of Present Illness Details The patient is a 75-year-old male presenting for an annual physical examination and review of vaccination status. The patient has a history of heart failure, managed with carvedilol and Entresto under cardiology supervision. He actively manages his weight to prevent fluid retention, having lost 8 pounds since November. Chronic kidney disease stage 3 is present, with renal function tests showing a level of 55, slightly below normal. Renal function will be reassessed in four months. Non-Hodgkin lymphoma is monitored with evaluations every six months to a year, based on blood counts. The patient has not undergone chemotherapy but is under surveillance for recurrence. [facility] Medical History (Updated 05/02/25 @ 11:16 by Serena Saha MD) Disorder of bone, unspecified Smokers' cough Abdominal swelling Left shoulder pain Essential hypertension Failed back syndrome Rash Neck pain NICM (nonischemic cardiomyopathy) Hepatitis B antibody positive in blood Hepatitis B core antibody positive Hepatitis C antibody positive in blood Hypertension T-cell lymphoma HIV (human immunodeficiency virus infection) Surgical History History of spinal surgery Family History Father Lung cancer Mother Asthma Other Substance use disorder Social History Housing: Apartment Alcohol intake: former Patient Tobacco Use Status: Former Tobacco user Years Smoked: 56 e-Cigarette/Vaping Use: Never Used Second Hand Smoke Exposure: No service: No Current occupational status: unemployed and disabled Cognitive needs: No Hearing needs: No Vision needs: Yes Questionnaire PHQ-9 Over the last 2 weeks, how often have you been bothered by any of the following problems? 1. Little interest or pleasure in doing things: not at all 2. Feeling down, depressed, or hopeless: not at all 3. Trouble falling or staying asleep, or sleeping too much: not at all 4. Feeling tired or having little energy: not at all 5. Poor appetite or overeating: not at all 6. Feeling bad about yourself - or that you are a failure or have let yourself or your family down: not at all 7. Trouble concentrating on things, such as reading the newspaper or watching television: not at all 8. Moving or speaking so slowly that other people could have noticed. Or the opposite - being so fidgety or restless that you have been moving around a lot more than usual: not at all 9. Thoughts that you would be better off or of hurting yourself in some way: not at all Total score: 0 Depression Screening Interpretation: Negative Depression Screening Done: Yes 54120 - PHQ-9 Billing: Yes Source: Developed by Drs. Tom Huber, Kim Allen, Mitch Davis and colleagues, with an educational guero from [employer]. Thrive Questionnaire Date Thrive assessed: 05/02/25 I am a: Patient What is your living situation today?: I have a steady place to live Within the past 12 months, did the food you bought not last and you didn't have the money to get more?: Never true Within the past 12 months, did you worry whether your food would run out before you got money to buy more?: Never true Do you have trouble paying for medicines?: No Do you have trouble getting transportation to medical appointments?: No Do you have trouble paying your heating and electricity bill?: No Do you have trouble taking care of your child, family member or friend?: No Do you have trouble with day-to-day activities such as bathing, preparing meals, shopping, managing finances, etc.?: No Are you currently unemployed and looking for a job?: No Are you interested in more education?: No Please select the resources that you would like help with: None Currently or been in a relationship where the following occur: No concerns reported THRIVE Score: 0 AUDIT C Alcohol Use Questionnaire (AUDIT-C) 1. How often do you have a drink containing alcohol?: Never Total Score: 0 MAYDA-7 AMB Questionnaire MAYDA-7 Date MAYDA - 7 assessed: 05/02/25 Feeling nervous, anxious, or on edge: 0 = Not at all Not being able to stop or control worryin = Not at all Worrying too much about different things: 0 = Not at all Trouble relaxin = Not at all Being so restless that it is hard to sit still: 0 = Not at all Becoming easily annoyed or irritable: 0 = Not at all Feeling afraid as if something awful might happen: 0 = Not at all Total MAYDA-7 score (0-4 normal; 5-9 mild; 10-14 moderate; 15-21 severe): 0 Source: Developed by Kim Rebolledo Kurt Kroenke and colleagues, with an educational guero from [employer]. MAYDA-7 Assessment Billing MAYDA-7 Assessment Tool: MAYDA-7 Assessment 20086 Review of Systems Const All systems reviewed & are unremarkable except as noted in HPI and below Card Denies chest pain at rest, Denies chest pain with activity, Denies edema, Denies irregular heart rhythm, Denies claudication, Denies dyspnea, Denies dyspnea on exertion, Denies orthopnea, Denies paroxysmal nocturnal dyspnea and Denies slow heart rate Resp Denies cough, Denies dyspnea and Denies dyspnea on exertion Neuro Denies lack of coordination Physical exam (Primary Care) Vital Signs: Last Vital Signs Temp 96.9 F 05/02/25 08:27 Pulse 73 05/02/25 08:27 Resp 18 05/02/25 08:27 BP 140/70 H 05/02/25 08:27 Pulse Ox 95 05/02/25 08:27 Oxygen Delivery Method Room Air 05/02/25 08:27 BMI result Body Mass Index 26.8 Tobacco/Smoking Status: Tobacco use Status Tobacco use date assessed 05/02/25 05/02/25 08:34 Patient Tobacco Use Status Former Tobacco user 05/02/25 08:34 Tobacco use type 05/18/23 11:32 e-Cigarette/Vaping Use Never Used 05/02/25 08:34 PHQ-9: PHQ-9 Score PHQ-9: Total score 0 05/02/25 09:25 Depression Screening Interpretation: Negative Thrive Assessment: Date of Thrive Assessment Date Thrive assessed 05/02/25 05/02/25 08:34 Currently or been in a relationship where the following occur: No concerns reported [facility] Head: Yes normal to inspection, Yes normocephalic and Yes atraumatic Ears: external ears normal Eyes General: appearance normal, both eyes and all related structures Eyelids: Yes eyelids normal Conjunctivae: conjunctivae normal Neck Neck: Yes normal visual inspection and Yes supple Resp Effort & Inspection: normal respiratory effort Auscultation: clear to auscultation bilaterally Cardio Jugular venous distension: no JVD Rate: regular rate Rhythm: regular rhythm Heart sounds: S1 normal heart sound present and S2 normal heart sound present GI Inspection: Yes normal to inspection Palpation (GI): Soft to palpation and nontender Auscultation: normal bowel sounds Skin General skin exam: no rashes or lesions noted Neuro General: no focal motor deficits Extrem General: Yes full ROM Psych Appearance: grossly normal Immunizations pneumoc 20-sera conj-dip cr(PF) 0.5 mL IM syringe Performing Provider: Serena Saha MD [facility] Administered by: Ladi Hinojosa LPN on 05/02/25 09:24 Dose Route Admin Location Dispensed Lot Number Expiration Date NDC Skiver Heel Tap 0.5 mL IM Left Deltoid 0.5 mL [id number] 05/28/26 [employer] Total Dispensed Waste 0.5 mL 0 % VIS Given Date VIS Provided VIS Publication Date 05/02/25 Single Vaccine 25 Eligibility Eligibility Date Funding Source Not [facility] Eligible 05/02/25 Private Coding Level of Care Code Est Pt Level 3 (09743) Est Pt Prev Care >65y(37917) Diagnoses Physical exam Z00.00 HIV infection, unspecified symptom status B20 HIV symptom status: unspecified T-cell lymphoma C85.90 NICM (nonischemic cardiomyopathy) I42.8 Failed back syndrome M96.1 Rash R21 CKD (chronic kidney disease) stage 3, GFR 30-59 ml/min N18.30 Additional Codes MAYDA-7 Assessment Billing - MAYDA-7 Assessment Tool: MAYDA-7 Assessment 37752 ([id number]) PHQ-9 - 48122 - PHQ-9 Billing: Yes ([id number]) Time Spent (min) 35 Assessment & Plan Assessment & Plan (1) Physical exam: Code(s): Z00.00 - Encounter for general adult medical examination without abnormal findings Category: Medical (2) HIV (human immunodeficiency virus infection): Comment: He is doing well. He takes Descovy and Tivicay. He declines anal Pap and vaccines. Code(s): B20 - Human immunodeficiency virus [HIV] disease Category: Medical Qualifiers: HIV symptom status: unspecified Qualified Code(s): B20 - Human immunodeficiency virus [HIV] disease (3) T-cell lymphoma: Comment: Doing better Code(s): C85.90 - Non-Hodgkin lymphoma, unspecified, unspecified site Category: Medical (4) NICM (nonischemic cardiomyopathy): Code(s): I42.8 - Other cardiomyopathies Category: Medical (5) Failed back syndrome: Code(s): M96.1 - Postlaminectomy syndrome, not elsewhere classified Category: Medical (6) Rash: Code(s): R21 - Rash and other nonspecific skin eruption Category: Medical (7) CKD (chronic kidney disease) stage 3, GFR 30-59 ml/min: Code(s): N18.30 - Chronic kidney disease, stage 3 unspecified Category: Medical Plan Plan Patient was informed and verbally consented to the use of an ambient scribe for clinic note documentation during this visit. 1. Encounter for general adult medical examination without abnormal findings Z00.00 Pneumonia vaccination is planned for today 2. Chronic kidney disease, stage 3 unspecified N18.30 HCC 138 Renal function is at 55, indicating stage 3 chronic kidney disease, with follow-up tests planned in four months. 3. T-cell lymphoma, unspecified, unspecified site C85.90 HCC 10 Under regular surveillance, with evaluations every six months to a year based on blood counts. 4. Hypertensive heart disease with heart failure I11.0 HCC 85 Heart failure is managed with carvedilol and Entresto, with daily weight monitoring advised to prevent fluid retention. Orders: Orders Comprehensive [place]. Panel Fast 4 Months I42.8 - Other cardiomyopathies Lipid Panel 4 Months E78.5 - Hyperlipidemia, unspecified NT-proBNP 4 Months I42.8 - Other cardiomyopathies Pneumococcal 20 Immunization Today Z23 - Encounter for immunization Medications: Changed From docusate sodium (Colace) 100 mg PO DAILY 90 days PRN 90 caps 0RF constipation To docusate sodium (Colace) 100 mg PO BID PRN 180 caps 0RF constipation 90 days Refilled oxycodone 5 mg PO DAILY PRN 30 tabs 0RF pain 30 days M96.1 - Postlaminectomy syndrome, not elsewhere classified
--- OUTSIDE RECORDS SUMMARY | 2025-05-02 08:43 | XMS_ITS | Clinical Summary ---
Author Organization [facility] Address [address] [place] [id number] Phone Care Team Providers Care Environmental Engineer Name Role Phone Dillon Dean MD Primary [...] (2 of 2 - PCV) 12/08/2019 12/07/2018 INFLUENZA VACCINE (#1) 2025 COVID-19 VACCINE ( - 2023-2 5 season) 2025 HEPATITIS A VACCINES Aged Out No long [...] topic Medical Devices Not on file Insurance [facility] MEDICARE REPLACEMENT [facility] MEDICARE REPLACEMENT [employer] [id number] [facility] MEDICARE [facility]PLACEMENT [facility] MED[facility]PLACEMENT [facility] MEDIC[facility] REPLACEMENT [facility] MEDIC[facility] REPLACEMENT [facility] MEDIC[facility]PLACEMENT [facility] MEDIC[facility] REPLACEMENT [facility] MEDICARE REPLACEMENT [employer] [id number] Care Teams Environmental Engineer Relationship Specialty Start Date End Date Dillon Dean MD [address] [address] PCP - General Cardiology 07/24/19 Self-Referred, Patient Referring Physician 07/18/20 Additional Source Comments The information contained in this document represents components of the legal health record. It is not the complete legal health record.[facility]
== END 2025-05-02 09:22 | disposition home or self-care (01) ==
LOC: HO.HMCH 08:21
PROVIDERS: PCP Internal Medicine; Visit Provider Internal Medicine
DX: Z00.00 Encounter for general adult medical examination without abnormal findings (principal); B20 Human immunodeficiency virus [HIV] disease; C85.90 Non-Hodgkin lymphoma, unspecified, unspecified site; I42.8 Other cardiomyopathies; N18.30 Chronic kidney disease, stage 3 unspecified; M96.1 Postlaminectomy syndrome, not elsewhere classified; R21 Rash and other nonspecific skin eruption; Z23 Encounter for immunization

== ENCOUNTER → 2025-05-02 08:21 | Outpatient (BNVA) | payer OTHER, SELFPAY | PROVIDERS: PCP Internal Medicine; Visit Provider Internal Medicine | DX: Z00.00 Encounter for general adult medical examination without abnormal findings (principal); I13.0 Hypertensive heart and chronic kidney disease with heart failure and stage 1 through stage 4 chronic kidney disease, or unspecified chronic kidney disease; I50.9 Heart failure, unspecified; N18.30 Chronic kidney disease, stage 3 unspecified; B20 Human immunodeficiency virus [HIV] disease; C85.90 Non-Hodgkin lymphoma, unspecified, unspecified site; I42.8 Other cardiomyopathies; M96.1 Postlaminectomy syndrome, not elsewhere classified; R21 Rash and other nonspecific skin eruption; E78.5 Hyperlipidemia, unspecified; Z23 Encounter for immunization; Z79.899 Other long term (current) drug therapy | CPT/HCPCS: 90471; 90677; 96127; 99212; 99397 ==

== ENCOUNTER 2025-08-09 10:48 | Outpatient (REF) | payer OTHER, SELFPAY ==
[2025-08-09 11:49] LABS: Anion Gap 9 (12-20); Blood Urea Nitrogen 19 mg/dL (9-16); Calcium 8.9 mg/dL (8.4-10.2); Carbon Dioxide 30 mmol/L (22-29); Chloride 108 mmol/L (96-108); Estimated Glomerular Filt Rate 46; Potassium 4.4 mmol/L (3.3-5.1); Sodium 143 mmol/L (135-145)
[2025-08-09 12:09] LABS: NT Pro B Type Natriuretic Pept 1094.8 pg/mL (<300)
== END 2025-08-09 10:49 | disposition home or self-care (01) ==
LOC: HO.LAB 10:48
PROVIDERS: Absent Provider Internal Medicine; PCP Internal Medicine; Visit Provider Internal Medicine
DX: B20 Human immunodeficiency virus [HIV] disease (principal); I50.9 Heart failure, unspecified; I42.8 Other cardiomyopathies
CPT/HCPCS: 36415; 80048; 83880; 86359; 86360; 87536

== ENCOUNTER 2025-08-26 10:56 | Outpatient (AMB) | payer OTHER, SELFPAY ==
--- NOTE | 2025-08-26 11:16 | A.OFFVIS_ITS ---
Vital Signs 08/26/25 11:33 Height 5 ft 9 in Weight 188 lb BMI 27.8 Pulse 73 Pulse Oximetry (%) 94 Intake Visit Reasons: 6m follow up Allergies morphine (MORPHINE) Allergy (Intermediate, Verified 08/26/25 11:40) RASH ibuprofen (From MOTRIN) Adverse Reaction (Intermediate, Verified 08/26/25 11:40) UPSET STOMACH, diarrhea HPI Comments Details: History of Present Illness The patient is a 75 year old male presenting for a routine six-month follow-up f or HIV care. The patient's HIV remains well-controlled, with a viral load that was undetectable and a CD4 count of 264 on 08/09. His medical history is significant for non-ischemic cardiomyopathy and T-cell lymphoma, which is currently under treatment. He has a history of stage 3 Chronic Kidney Disease, which is managed by his primary care provider. His renal function has worsened since his last visit in January, with his creatinine increasing from 1.28 to 1.49 and his GFR decreasing from 55 to 46. For health screenings, he has had a colonoscopy that showed no malignancy, but he declines an anal Pap smear. He also declines any vaccinations, citing that he does get sick from them. The patient has some depression, with a recent PHQ-9 score of 10. Socially, he reports no use of alcohol or drugs and has no issues with food, housing, or transportation. He has dentures, received a dental visit one month ago, and is receiving follow-up eye care. Results - Labs (08/09): HIV viral load undetectable, CD4 count 264. - Labs (Current): Creatinine 1.49 (previously 1.28 in January), GFR 46 (previously 55 in January). - Screening: PHQ-9 score of 10. - Procedures: Colonoscopy was negative for malignancy. [facility] Medical History Disorder of bone, unspecified Smokers' cough Abdominal swelling Left shoulder pain Essential hypertension Failed back syndrome Rash Neck pain NICM (nonischemic cardiomyopathy) Hepatitis B antibody positive in blood Hepatitis B core antibody positive Hepatitis C antibody positive in blood Hypertension T-cell lymphoma HIV (human immunodeficiency virus infection) Surgical History History of spinal surgery Family History Father Lung cancer Mother Asthma Other Substance use disorder Social History Housing: Apartment Alcohol intake: former Patient Tobacco Use Status: Former Tobacco user Years Smoked: 56 e-Cigarette/Vaping Use: Never Used Second Hand Smoke Exposure: No service: No Current occupational status: unemployed and disabled Cognitive needs: No Hearing needs: No Vision needs: Yes Review of Systems Narrative Review of Systems - Psychiatric: Reports symptoms of depression. - General: Reports feeling sick after receiving vaccinations. - Social: Reports no issues with food, housing, transportation, or bills. - Substance Use: Denies use of alcohol or drugs. Physical Exam Exam Exam: Physical Exam - Vitals: Stable. - HEENT: Pupils are equal, round, and reactive to light and accommodation. Oropharynx is clear. - Neck: No thyromegaly or adenopathy noted. - Lungs: Decreased breath sounds at bases. - Cardiovascular: Regular rate and rhythm with normal S1 and S2 heart sounds. - Abdomen: Soft, non-tender. - Extremities: Non-tender. - Neurological: Exam is non-focal. - Skin: Clear. Vital Signs: Last Vital Signs Pulse 73 08/26/25 11:33 Pulse Ox 94 08/26/25 11:33 BMI result Body Mass Index 27.8 Assessment & Plan Assessment & Plan (1) HIV (human immunodeficiency virus infection): Comment: He is doing well. He takes Descovy and Tivicay. He declines anal Pap and vaccines. Code(s): B20 - Human immunodeficiency virus [HIV] disease Category: Medical Qualifiers: HIV symptom status: unspecified Qualified Code(s): B20 - Human immunodeficiency virus [HIV] disease Plan Plan Patient was informed and verbally consented to the use of an ambient scribe for clinic note documentation during this visit. 1. Human immunodeficiency virus [HIV] disease B20 The patient is responding excellently to his current two-pill, three-drug regimen of dolutegravir 50 mg daily and Descovy (emtricitabine/tenofovir alafenamide 200/25 mg) one tablet daily. This is a recommended IDSA first-line regimen with minimal drug interactions and no cardiotoxicity. He will continue with the current treatment. 2. Chronic kidney disease, stage 3 unspecified N18.30 The patient's worsening renal function, evidenced by an increased creatinine and decreased GFR, is concerning. A urinalysis is recommended to check for proteinuria or other causes of renal decline, and the patient agreed to arrange this with his PCP. If his GFR declines to below 30 in the future, his HIV regimen will be switched to Juluca (dolutegravir and rilpivirine). 3. Depression, unspecified F32.A Given his PHQ-9 score of 10, indicating mild depression, the patient was advised to seek counseling or further evaluation. He declined any intervention today but stated he will address this with his primary care provider if needed. 4. T-Cell Lymphoma The patient reports that his T-cell lymphoma is currently under care with other providers. No changes to his management were made during this visit. 5. Other specified health status Z78.9 The patient declined an anal Pap smear and all recommended vaccinations. Follow- up for HIV care will be in six months. Discussion Notes I discussed with the patient that his HIV is well-controlled on his current regimen of dolutegravir and Descovy, and I recommended he continue this treatmen t. I expressed concern regarding the recent decline in his kidney function, noting the increase in creatinine and decrease in GFR. I explained that if his GFR drops below 30, we would need to switch his HIV medication to Juluca. I recommended he obtain a urinalysis and follow up with his PCP for this issue, which he agreed to do. We also reviewed his PHQ-9 score of 10, which suggests mild depression. I offered a referral for counseling, but he declined at this time, stating he would discuss it with his PCP if it becomes necessary. We noted his refusal of vaccinations and an anal Pap smear. I advised him to return for a follow-up visit in six months. Medical Decision Making The patient is a 75-year-old male with well-controlled HIV on a stable IDSA- recommended first-line antiretroviral regimen. His viral load is undetectable and his CD4 count is 264. The decision was made to continue his current regimen of dolutegravir and Descovy as it is effective and well-tolerated. The most significant clinical finding this visit is the worsening renal function, with an increase in creatinine to 1.49 and a decrease in GFR to 46. While his current HIV regimen is appropriate for his GFR, a contingency plan is in place to switch to Juluca (dolutegravir/rilpivirine) should his GFR fall below 30. Further evaluation with a urinalysis is warranted to investigate for proteinuria and will be coordinated through his PCP. Mild depression was noted with a PHQ-9 score of 10. The patient was counseled to seek evaluation through his PCP but declined immediate intervention. Other comorbidities, including T-cell lymphoma and NICM, are reportedly stable and managed by other specialists. Routine follow-up is scheduled in six months. Patient Instructions - Continue taking your HIV medications as prescribed. Your current treatment is working very well to keep the virus under control. - There has been a change in your kidney function tests. Please follow up with your primary care doctor to discuss this. - You should have a urine test, called a urinalysis, to check on your kidney health. - Your screening questionnaire for depression showed a score of 10, which suggests you may have mild depression. It is a good idea to talk to your primary care doctor about this for possible counseling or other support. - Return to this clinic for your next HIV check-up in six months. I renewed Descovy and Tivicay for six months and ordered lab work do in January before next appt. Orders: Orders Liver Panel 6 Months B20 - Human immunodeficiency virus [HIV] disease T Spot TB 6 Months B20 - Human immunodeficiency virus [HIV] disease Lymphocyte Subset Panel 3 6 Months B20 - Human immunodeficiency virus [HIV] disease Complete Blood Count Auto Diff 6 Months B20 - Human immunodeficiency virus [HIV] disease HIV-1 RNA QN PCR Expanded 6 Months B20 - Human immunodeficiency virus [HIV] disease Basic Metabolic Panel 6 Months B20 - Human immunodeficiency virus [HIV] disease Syphilis Screen 6 Months B20 - Human immunodeficiency virus [HIV] disease Hepatitis C Viral Load 6 Months B20 - Human immunodeficiency virus [HIV] disease Medications: Refilled dolutegravir (Tivicay) 50 mg PO DAILY 30 tabs 5RF 30 days emtricitabine-tenofovir alafen 200-25 mg (Descovy) 1 tab PO DAILY 30 tabs 5RF 30 days Coding Level of Care Code Est Pt Level 4 (88616) Diagnoses HIV infection, unspecified symptom status B20 HIV symptom status: unspecified
[2025-08-26 11:33] VITALS: PULSE 73; O2SAT 94; BMI 27.8
--- OUTSIDE RECORDS SUMMARY | 2025-08-26 12:42 | XMS_ITS | Clinical Summary ---
Author Organization [facility] Address [address] [place] [phone] Phone Care Team Providers Care Rn Ortho Name Role Phone Dillon Dean MD Primary [...] FOBT 1997 SIGMOIDOSCOPY 1997 VIRTUAL COLONOSCOPY 1997 ABDOMINAL AORTIC ANEURYSM (A AA) SCREENING 2017 PNEUMOCOCCAL VACCINES (50+ y ears) (2 of 2 - PCV) 12/08/2019 12/07/2018 INFLUENZA VACCINE (#1) 2025 COVID-19 VACCINE ( - 2024-2 6 season) 2025 RSV VACCINE (1 - 1-dose 75+ series) 2027 HEPATITIS A VACCINES Aged Out No long [...] topic Medical Devices Not on file Insurance FORMERLY [facility] MEDICARE REPLACEMENT , [place] [id number] FORMERLY [facility] MEDICARE REPLACEMENT FORMERLY [facility] MEDICARE REPLACEMENT FORMERLY [facility] MEDICARE [facility]PLACEMENT FORMER[facility] MEDICARE REPLACEMENT FOR[facility] MEDICARE REPLACEMENT FOR[facility] MEDICARE REPLACEMENT FORMERLY [facility] MEDICARE REPLACEMENT FORMERLY [facility] MEDICARE REPLACEMENT [place] [id number] Care Teams Rn Ortho Relationship Specialty Start Date End Date Dillon Dean MD [address] [id number] PCP - General Cardiology 07/24/19 Self-Referred, Patient Referring Physician 07/18/20 Additional Source Comments The information contained in this document represents components of the legal health record. It is not the complete legal health record.[facility]
== END 2025-08-26 14:05 | disposition home or self-care (01) ==
LOC: HO.HID 10:56
PROVIDERS: PCP Internal Medicine; Visit Provider Internal Medicine
DX: B20 Human immunodeficiency virus [HIV] disease (principal)
CPT/HCPCS: 99214

== ENCOUNTER → 2025-08-26 10:56 | Outpatient (BNVA) | payer OTHER, SELFPAY | PROVIDERS: PCP Internal Medicine; Visit Provider Internal Medicine | DX: B20 Human immunodeficiency virus [HIV] disease (principal); I12.9 Hypertensive chronic kidney disease with stage 1 through stage 4 chronic kidney disease, or unspecified chronic kidney disease; N18.30 Chronic kidney disease, stage 3 unspecified; F32.A Depression, unspecified; C91.50 Adult T-cell lymphoma/leukemia (HTLV-1-associated) not having achieved remission; Z78.9 Other specified health status; Z79.899 Other long term (current) drug therapy | CPT/HCPCS: 99212 ==